=== PATIENT | male | born 1950 | race Caucasian/White ===

== ENCOUNTER 2022-07-06 13:59 | Outpatient (REF) | payer MEDICARE, MEDICAID, SELFPAY ==
[2022-07-06 14:03] LABS: Abs Immature Grans 0.05 10^3/uL (0.0-0.06); Absolute Basophil Count 0.04 10^3/uL (0.0-0.2); Absolute Eosinophil Count 0.25 10^3/uL (0.0-0.7); Absolute Lymphocyte Count 1.39 10^3/uL (1.2-3.4); Absolute Monocyte Count 0.66 10^3/uL (0.1-0.8); Absolute Neutrophil Count 6.55 10^3/uL (1.2-6.7); Basophils % 0.4; Eosinophils % 2.8; HCT 30.3 % (40.0-50.0); HGB 9.4 g/dL (13.5-17.5); Immature Grans % 0.6; Lymphocytes % 15.5; MCH 28.7 pg (27.0-33.0); MCV 92 fL (80-95); MPV 9.5 fL (8.0-11.0); Monocytes % 7.4; Neutrophils % 73.3; Platelet Count 212 10^3/uL (130-400); RBC 3.28 10^6/uL (4.36-5.78); RDW 13.2 % (11.8-14.1); RDW-SD 44.9 fL; WBC 8.94 10^3/uL (4.4-10.8)
[2022-07-06 14:20] LABS: ALT 13 U/L (16-63); AST 11 U/L (15-37); Albumin 3.1 g/dL (3.4-5.0); Alkaline Phosphatase 99 U/L (46-116); Anion Gap 5.3 mmol/L (3-11); BUN 33 mg/dL (7-18); Bilirubin, Total 0.2 mg/dL (0.2-1.0); CO2 36.7 mmol/L (21.0-32.0); CREATININE 1.7 mg/dL (0.70-1.30); Calcium 8.4 mg/dL (8.5-10.1); Chloride 96 mmol/L (98-107); Estimated GFR 42.04 (mL/min/1.73m2); Glucose 121 mg/dL (74-106); NT-proBNP 608 pg/mL (<300); Potassium 4.1 mmol/L (3.5-5.1); Sodium 138 mmol/L (136-145); Total Protein 6.6 g/dL (6.4-8.2); Troponin I < 50 ng/L (<or=60)
== END 2022-07-06 14:00 | disposition home or self-care (01) ==
LOC: LBN 13:59
PROVIDERS: Visit Provider Physician Assistant
DX: M62.81 Muscle weakness (generalized) (principal)
CPT/HCPCS: 80053; 83880; 84484; 85025

== ENCOUNTER 2022-07-07 12:33 | Outpatient (CLI) | payer MEDICARE, MEDICAID, SELFPAY ==
--- NOTE | 2022-07-07 12:30 | RT.EKG_ITS ---
APPROVED REPORT Exam: Resting ECG Reason for Exam: CHEST PAIN Patient Location: O HR:78 bpm ECG Measurements Heart Rate 78 AXIS [place] 87 P -42 QRSd 48 QRS 83 QT 307 T -14 QTc 350 Conclusion Sinus rhythm...normal P axis, V-rate 50- 99 Ventricular premature complex...V complex w/ short R-R interval Atrial premature complex Right bundle branch block
== END 2022-07-07 12:34 | disposition home or self-care (01) ==
PROVIDERS: Visit Provider Physician Assistant
DX: R07.9 Chest pain, unspecified (principal); I49.1 Atrial premature depolarization; I49.3 Ventricular premature depolarization; I45.10 Unspecified right bundle-branch block
CPT/HCPCS: 93005; 93010

== ENCOUNTER 2022-09-03 18:48 | Outpatient (REF) | payer MEDICARE, MEDICAID, SELFPAY ==
[2022-09-03 19:25] LABS: Hemoglobin A1C 6.3 % (<5.7)
== END 2022-09-03 18:49 | disposition home or self-care (01) ==
LOC: LBN 18:48
PROVIDERS: Visit Provider Physician Assistant
DX: E11.9 Type 2 diabetes mellitus without complications (principal)
CPT/HCPCS: 83036

== ENCOUNTER 2022-10-15 16:45 | Outpatient (REF) | payer MEDICARE, MEDICAID, SELFPAY ==
[2022-10-15 17:31] LABS: Magnesium 2.1 mg/dL (1.8-2.4)
== END 2022-10-15 16:46 | disposition home or self-care (01) ==
LOC: LBN 16:45
PROVIDERS: Referring Provider Physician Assistant; Visit Provider Family Medicine
DX: N18.9 Chronic kidney disease, unspecified (principal)
CPT/HCPCS: 83735

== ENCOUNTER 2022-11-10 21:25 | Outpatient (REF) | payer MEDICARE, MEDICAID, SELFPAY | END 2022-11-10 21:26 | disposition home or self-care (01) | LOC: LBN 21:25 | PROVIDERS: Visit Provider Physician Assistant | DX: E11.9 Type 2 diabetes mellitus without complications (principal); S81.802A Unspecified open wound, left lower leg, initial encounter | CPT/HCPCS: 87077; 87070; 87186; 87205 ==

== ENCOUNTER 2022-11-15 03:02 | Inpatient (IN) | payer MEDICARE, MEDICAID, SELFPAY ==
[2022-11-15] VITALS (53 sets, daily range): BP systolic 91–127; BP diastolic 39–80; PULSE 68–92; RESP 4–26; TEMP 36.8–37.9; O2SAT 91–100
--- NOTE | 2022-11-15 03:00 | RT.EKG_ITS ---
APPROVED REPORT Exam: Resting ECG Reason for Exam: dyspnea Patient Location: E HR:88 bpm ECG Measurements Heart Rate 88 AXIS FL 183 P -64 QRSd 159 QRS -24 QT 426 T 46 QTc 497 Conclusion Sinus or ectopic atrial rhythm...P axis (-45,135) Multiform ventricular premature complexes...short R-R, variable morphology Right bundle branch block...QRSd>120, terminal axis(90,270) Inferior infarct, old...Q >35mS, II III aVF
--- NOTE | 2022-11-15 03:15 | DI.RAD_ITS ---
Exam(s) XR PORTABLE CHEST AP EXAM: XR PORTABLE CHEST AP CLINICAL HISTORY: shortness of breath. TECHNIQUE: 2D digital imaging was performed. COMPARISON: CT CT CHEST WO from 11/15/2022 FINDINGS: Single AP portable LORDOTIC view. Heart size is slightly prominent. The mediastinum is not widened. Right lung is clear. There appears to be some infiltrate in left lower lobe retrocardiac region. No obvious pleural effusions. No pulmonary edema. IMPRESSION: Somewhat lordotic view but there is suspicion for left lower lobe infiltrate. No obvious pleural eff usions. Mild cardiomegaly. No pulmonary edema. DATA REPOSITORY: RADIATION DOSE DELIVERED:
--- NOTE | 2022-11-15 03:20 | W.ED.GENAD ---
Discharge Plan Disposition Patient Disposition: Admit to [facility] Discharge Details Chief Complaint: Cellulitis Clinical Impression: ELVIRA (acute kidney injury), Acute uremia, Cellulitis of left leg Primary Care Provider: Unknown,Unknown ED Provider: Ta Sadler [place] Meds and New Rx's Prescriptions: No Action acetaminophen 500 mg Tablet 500 mg PO BID ascorbic acid (vitamin C) 500 mg Tablet 500 mg PO BID atorvastatin 80 mg Tablet 80 mg PO QHS celecoxib [Celebrex] 100 mg Capsule 100 mg PO BID docusate sodium [Colace] 100 mg Capsule 100 mg PO DAILY bisacodyl [Dulcolax (bisacodyl)] 10 mg Suppository 10 mg GA DAILY PRN duloxetine 60 mg Capsule,Delayed Release(Dr/Ec) 60 mg PO DAILY ferrous sulfate 325 mg (65 mg iron) Tablet 325 mg PO DAILY finasteride 5 mg Tablet 5 mg PO DAILY furosemide 80 mg Tablet 80 mg PO BID guaifenesin [Latoya-Tussin] 100 mg/5 mL Liquid 200 mg PO Q4H PRN loperamide [Imodium A-D] 2 mg Tablet 2 mg PO Q4H PRN Rx Instructions: administer after each loose stool until symptoms controlled; do not exceed 8 mg per 24 hrs ipratropium-albuterol 0.5 mg-3 mg(2.5 mg base)/3 mL Solution For Nebulization 3 ml INHALATION Q6H PRN lisinopril 20 mg Tablet 20 mg PO DAILY magnesium chloride 64 mg Tablet Extended Release 128 mg PO DAILY melatonin 5 mg Tablet 5 mg PO HS PRN metformin 1,000 mg Tablet 1,000 mg PO BID metoprolol succinate 50 mg Tablet Extended Release 24 Hr 50 mg PO DAILY magnesium hydroxide [Milk of Magnesia] 400 mg/5 mL Suspension 400 mg PO DAILY PRN PRN polyethylene glycol 3350 [Miralax] 17 gram Powder In Packet 17 g PO DAILY nitroglycerin 0.4 mg Tablet, Sublingual 0.4 mg SUBLINGUAL Q5-15M PRN Rx Instructions: do not exceed 3 doses per episode omeprazole 20 mg Tablet,Delayed Release (Dr/Ec) 20 mg PO DAILY budesonide-formoterol [Symbicort] 160-4.5 mcg/actuation Hfa Aerosol Inhaler 2 puff INHALATION BID tamsulosin 0.4 mg Capsule 0.8 mg PO DAILY triamcinolone acetonide 0.1 % Cream 1 applic TOPICAL BID vit [id number] no.15 [id number] nra-vyc-hz-mg Capsule 1,000 cap PO DAILY alprazolam [Xanax] 0.5 mg Tablet 0.5 mg PO DAILY Medical Decision Making 72 yo male who resides at [facility] rehab and has a hx of copd and chf on o2 chronically, who comes in with complaint of one week of worsening left leg redness and swelling and pain. HE has chronic swelling of both his lower legs and states the left has worsened over the past week. HE denies fevers, chills. HE also notes some chest pressure but states he gets this frequently when he feels anxious which he is feeling now, no prior ME's or prior cabg or stents per patient. Pt is caox4 on arrival with stable vitals. Both legs are swollen with left lower leg from just proximal to the ankle to just distal to the knee is erythematous and warm compared to the right. Intact sensation. Suspect lymphedema vs dvt vs cellulitis, will proceed with cbc, cmp, procalcitonin, lactate, unfortunately no formal u/s capabilities currently. He denies falls or trauma so doubt fracture or traumatic injury of the leg. His chest pain could be related to his anxiety but will proceed with ekg/troponin. NO tearing back pain to suggest dissection, no hypoxia worsened from baseline and no tachycardia so feel PE is also unlikely Labs show wbc of 14, creatinine over 2 and bun over 100 with gfr of 23, xray read as large left sided opacity of unclear etiology, CT without contrast ordered, vanco also ordered but holding on fluids as the opacity potentially is a pleural effusion. CT with no consolidation, pleural effusion, or pneumothorax. PT hemodynamically stable, will discuss with hospitalist about admission for IV antibiotics and fluid monitoring Differential Diagnosis Differential Diagnosis: dvt, cellulitis, lymphedema Imaging Data Radiologic Study: Attestation: I personally reviewed and interpreted this imaging study as follows: Imaging: X-Ray Radiologist's impression: IMPRESSION: Large region of increased opacity over the left lower lung zone, uncertain etiology. Differential considerations would include an artifactual appearance created by overlying soft tissue, a large pleural effusion, the cardiac shadow, and/or consolidation at the left base. Lab Data Lab results reviewed: Yes I reviewed the patient's lab results. ECG Data Attestation: I personally reviewed and interpreted this ECG (s) as follows: Prior ECG tracings: available for review Interpretation: sinus rate of 88, pvc's, no stemi HPI General Mode of arrival: EMS. Date/Time Provider Initiated Documentation: 11/15/22 03:12. Limitations to Documentation: no limitations. Information obtained by: patient. History of Present Illness 72 year old M presents to the emergency department with the chief complaint of left leg swelling/pain/redness, described as moderate, Patient started experiencing this week(s) (1) and it has been constant. No relieving factors improve symptom(s), No exacerbating factors reported . Patient notes chest pain, shortness of breath and other (anxiety). Patient did receive the following treatments prior to arrival, none Related Data Home Medications Medication Instructions Recorded Confirmed acetaminophen 500 mg tablet 500 mg PO BID 11/15/22 11/15/22 alprazolam 0.5 mg tablet (Xanax) 0.5 mg PO DAILY 11/15/22 11/15/22 ascorbic acid (vitamin C) 500 mg 500 mg PO BID 11/15/22 11/15/22 tablet atorvastatin 80 mg tablet 80 mg PO QHS 11/15/22 11/15/22 bisacodyl 10 mg rectal suppository 10 mg GA DAILY PRN 11/15/22 11/15/22 (Dulcolax (bisacodyl)) budesonide-formoterol HFA 160 2 puff inhalation BID 11/15/22 11/15/22 mcg-4.5 mcg/actuation aerosol inhaler (Symbicort) celecoxib 100 mg capsule (Celebrex) 100 mg PO BID 11/15/22 11/15/22 docusate sodium 100 mg capsule 100 mg PO DAILY 11/15/22 11/15/22 (Colace) duloxetine 60 mg capsule,delayed 60 mg PO DAILY 11/15/22 11/15/22 release ferrous sulfate 325 mg (65 mg 325 mg PO DAILY 11/15/22 11/15/22 iron) tablet finasteride 5 mg tablet 5 mg PO DAILY 11/15/22 11/15/22 furosemide 80 mg tablet 80 mg PO BID 11/15/22 11/15/22 guaifenesin 100 mg/5 mL oral 200 mg PO Q4H PRN 11/15/22 11/15/22 liquid (Latoya-Tussin) ipratropium 0.5 mg-albuterol 3 mg 3 ml inhalation Q6H PRN 11/15/22 11/15/22 (2.5 mg base)/3 mL nebulization soln lisinopril 20 mg tablet 20 mg PO DAILY 11/15/22 11/15/22 loperamide 2 mg tablet (Imodium 2 mg PO Q4H PRN 11/15/22 11/15/22 A-D) magnesium chloride 64 mg 128 mg PO DAILY 11/15/22 11/15/22 tablet,extended release magnesium hydroxide 400 mg/5 mL 400 mg PO DAILY PRN PRN 11/15/22 11/15/22 oral suspension (Milk of Magnesia) melatonin 5 mg tablet 5 mg PO HS PRN 11/15/22 11/15/22 metformin 1,000 mg tablet 1,000 mg PO BID 11/15/22 11/15/22 metoprolol succinate 50 mg 50 mg PO DAILY 11/15/22 11/15/22 tablet,extended release 24 hr nitroglycerin 0.4 mg sublingual 0.4 mg sublingual Q5-15M PRN 11/15/22 11/15/22 tablet omeprazole 20 mg tablet,delayed 20 mg PO DAILY 11/15/22 11/15/22 release polyethylene glycol 3350 17 gram 17 g PO DAILY 11/15/22 11/15/22 oral powder packet (Miralax) tamsulosin 0.4 mg capsule 0.8 mg PO DAILY 11/15/22 11/15/22 triamcinolone acetonide 0.1 % 1 applic topical BID 11/15/22 11/15/22 topical cream vit [id number] no.15 500 1,000 cap PO DAILY 11/15/22 11/15/22 mcg-400 mcg-10 mg-400 mg capsule Allergies Allergy/AdvReac Type Severity Reaction Status Date / Time No Known Allergies Allergy Unverified 11/15/22 03:30 General Stated Complaint: Cellulitis YESY: 3 Review of Systems All systems reviewed & are unremarkable except as noted in HPI and below Constitutional Constitutional: Denies chills, Denies fever(s) and Denies weakness ENT Ears, Nose, Mouth, and Throat: Denies change in voice Cardiovascular Cardiovascular: Reports chest pain and Reports dyspnea Respiratory Respiratory: Denies cough and Reports dyspnea Gastrointestinal Gastrointestinal: Denies abdominal pain, Denies nausea and Denies vomiting Genitourinary Genitourinary: Denies dysuria Integumentary/Breasts Skin/Breast: Reports rash Neurologic Neurologic: Denies weakness PFSH All Active Problems (Updated 11/15/22 @ 05:34 by Ta Sadler MD) ELVIRA (acute kidney injury) (Acute) Acute uremia (Acute) Cellulitis of left leg (Acute) Medical History (Updated 11/15/22 @ 05:34 by Ta Sadler MD) Chronic kidney disease (CKD) GERD (gastroesophageal reflux disease) Hyperlipemia Major depression Osteoarthritis Other retention of urine UTI (urinary tract infection) Venous insufficiency Social History Smoking/Tobacco Use Status: Former Tobacco Use Smoking risk assessment performed?: Yes Alcohol Intake: current Alcohol Intake frequency: holidays/special occasions only Substance use type: does not use Housing: fpc Do you feel safe at home: Yes Do you feel safe in your relationship?: Yes Exam Const Orientation: alert HENFL Head: normal to inspection Ears: external ears normal General nose exam: external nose normal Mouth: moist mucous membranes Eyes General: appearance normal, both eyes and all related structures Neck Neck: normal visual inspection Resp Effort & Inspection: normal respiratory effort and able to speak in complete sentences Auscultation: clear to auscultation bilaterally Cardio Jugular venous pressure: no JVD Rate: regular rate Heart Sounds: no murmurs Skin General skin exam: erythema Neuro General: patient alert and patient oriented x3 Extrem General: pedal edema Psych Mental Status: mental status grossly normal Course Vital Signs Vital signs: Vital Signs Temperature 36.8 C 11/15/22 03:03 Pulse 85 11/15/22 03:03 Respiratory Rate 16 11/15/22 03:03 Blood Pressure 127/63 11/15/22 03:03 Pulse Oximetry 97 11/15/22 03:03 Temperature 36.8 C 11/15/22 03:03 Temperature Source Temporal Artery Scan 11/15/22 03:03 Pulse 85 11/15/22 03:03 Respiratory Rate 16 11/15/22 03:03 Respiratory Effort Normal 11/15/22 03:12 Blood Pressure 127/63 11/15/22 03:03 Pulse Oximetry 97 11/15/22 03:03 Oxygen Delivery Method Room Air 11/15/22 03:03 Oxygen Flow Rate 0 11/15/22 03:03 Pain Level 10 11/15/22 03:03 Lab/Test Results Lab/Test Results: 11/15/22 03:02 Blood Blood Culture - Pending 11/15/22 03:02 Blood Blood Culture - Pending
[2022-11-15 03:29] LABS: BE (Venous) 1 mmol/L (-2-3); HCO3 (Venous) 28 mmol/L (23-28); O2 Sat (Venous) 66 %; TCO2 (Venous) 27 mmol/L (24-29); pCO2 (Venous) 56 mmHg (41-51); pH (Venous) 7.31 (7.31-7.41); pO2 (Venous) 36 mmHg
[2022-11-15] MEDS: MORPHine 4 MG/ML SYR IVP (03:29)
[2022-11-15 03:31] LABS: Absolute Basophil Count 0.01 10^3/uL (0.0-0.2); Absolute Eosinophil Count 0.27 10^3/uL (0.0-0.7); Absolute Lymphocyte Count 0.69 10^3/uL (1.2-3.4); Absolute Monocyte Count 1.11 10^3/uL (0.1-0.8); Absolute Neutrophil Count 12.57 10^3/uL (1.2-6.7); Basophils % 0.1; Eosinophils % 1.8; HCT 27.9 % (40.0-50.0); HGB 8.8 g/dL (13.5-17.5); Immature Grans % 0.7; Lactate 2.7 mmol/L (0.6-1.4); Lymphocytes % 4.7; MCH 28.4 pg (27.0-33.0); MCHC 31.5 % (32.0-36.0); MCV 90 fL (80-95); MPV 9.1 fL (8.0-11.0); Monocytes % 7.5; Neutrophils % 85.2; Platelet Count 323 10^3/uL (130-400); RDW-SD 45.9 fL; WBC 14.75 10^3/uL (4.4-10.8)
[2022-11-15 03:42] LABS: Magnesium 1.8 mg/dL (1.8-2.4); PTT Activated 30.5 sec (21.5-31.9); Prothrombin Time 10.2 sec (9.3-11.0)
--- NOTE | 2022-11-15 03:51 | DI.VRAD_ITS ---
PROCEDURE INFORMATION: Exam: XR Chest Exam date and time: 11/15/2022 3:34 AM Age: 72 years old Clinical indication: Shortness of breath TECHNIQUE: Imaging protocol: Radiologic exam of the chest. Views: 1 view. COMPARISON: No relevant prior studies available. FINDINGS: Limitations: The examination is underpenetrated. There is extensive overlying soft tissue. Patient positioning is lordotic. Lungs: There is increased opacity over the left lower lung zone. No consolidation is seen in the left upper lung zone or in the right lung. Pleural spaces: No pleural effusion is demonstrated on the right. There is increased opacity over the left lower lung zone. No pneumothorax is seen. Heart/Mediastinum: The heart is obscured and poorly evaluated. There is atherosclerotic calcification at the apex of the aortic arch. Bones/joints: The bony structures are not well evaluated but appear grossly intact, as seen. IMPRESSION: Large region of increased opacity over the left lower lung zone, uncertain etiology. Differential considerations would include an artifactual appearance created by overlying soft tissue, a large pleural effusion, the cardiac shadow, and/or consolidation at the left base. Dictated and Authenticated by: Juice Mcclain MD. Ordering:PANKAJ Chappell MD
[2022-11-15 03:52] LABS: ALT 23 U/L (16-63); AST 16 U/L (15-37); Albumin 2.5 g/dL (3.4-5.0); Alkaline Phosphatase 104 U/L (46-116); Anion Gap 8.8 mmol/L (3-11); Bilirubin, Total 0.4 mg/dL (0.2-1.0); CO2 29.2 mmol/L (21.0-32.0); CREATININE 2.8 mg/dL (0.70-1.30); Calcium 8.8 mg/dL (8.5-10.1); Chloride 96 mmol/L (98-107); Estimated GFR 22.96 (mL/min/1.73m2); Glucose 158 mg/dL (74-106); NT-proBNP 818 pg/mL (<300); Potassium 5.5 mmol/L (3.5-5.1); Sodium 134 mmol/L (136-145); Total Protein 7.3 g/dL (6.4-8.2); Troponin I < 50 ng/L (<or=60)
[2022-11-15 04:00] LABS: BUN 107 mg/dL (7-18)
--- NOTE | 2022-11-15 04:00 | DI.CT_ITS ---
Exam(s) CT CHEST WO EXAM: CT CHEST WO CLINICAL HISTORY: ?pneumonia vs pleural effusion. TECHNIQUE: Multi planar reconstructions were performed. CONTRAST MATERIAL: None COMPARISON: Recent chest x-ray reviewed FINDINGS: CHEST: LUNGS: Mild subpleural increased markings are noted in the lingular segment of the left lung base as well as in the posterior basal segments of both lower lobes, slightly more so on the right side. No large infiltrates. No pleural effusions. No significant focal findings in the trachea and mainstem bronchi. There is no bronchiectasis. MEDIASTINUM: There is no obvious hilar nor mediastinal adenopathy. Visualized thyroid unremarkable. CARDIAC: There is cardiomegaly. No pericardial effusion. Caliber of thoracic aorta is normal. VISUALIZED UPPER ABDOMEN:No obvious findings. OSSEOUS: No significant osseous lesions.No acute fractures evident.. IMPRESSION: 1. Mild subpleural infiltrate in both lung bases as described above. 2. No pleural effusions nor intrathoracic adenopathy. 3. Cardiomegaly. No pericardial effusion. RADIATION DOSE DELIVERED: 825mGy.cm Total DLP DATA REPOSITORY: All CT scans at this facility are submitted to the National Radiology Data Registry (NRDR) Dose Index Registry (DIR) with the [employer] ([employer]). RADIATION OPTIMIZATION: All CT scans at this facility use at least one of these dose optimization te chniques: automated exposure control; mA and/or kV adjustment per patient size (includes targeted exa ms where dose is matched to clinical indication); or iterative reconstruction.
[2022-11-15 04:04] LABS: Procalcitonin 0.4 ng/mL
[2022-11-15 04:54] LABS: Bilirubin Negative (Negative); Blood Negative (Negative); Clarity Clear (Clear); Glucose Negative (Negative); Ketones Negative (Negative); Leukocyte Esterase Negative (Negative); Nitrite Negative (Negative); Specific Gravity 1.015 (1.005-1.025); Urobilinogen 0.2 mg/dL (Up to 0.2); pH 5.5 (5-8)
--- NOTE | 2022-11-15 05:14 | DI.VRAD_ITS ---
PROCEDURE INFORMATION: Exam: CT Chest Without Contrast; Diagnostic Exam date and time: 11/15/2022 4:10 AM Age: 72 years old Clinical indication: Shortness of breath TECHNIQUE: Imaging protocol: Diagnostic computed tomography of the chest without contrast. COMPARISON: XR PORTABLE CHEST AP 11/15/2022 3:34 AM FINDINGS: Limitations: Grossly asymmetric patient positioning. Lungs: Minimal streaky dependent atelectasis. No pulmonary consolidation. Pleural spaces: No pleural effusion or pneumothorax. Heart: Cardiomegaly. Fatty infiltration of the interatrial septum with a maximum septal thickness of 2.4 cm. Artifact along the coronary arteries suggesting coronary artery calcification and/or coronary artery stents. Lymph nodes: No pathologically enlarged mediastinal or hilar lymph nodes. Vasculature: No thoracic aortic aneurysm. Enlarged pulmonary trunk and main pulmonary arteries suggesting pulmonary hypertension. Bones/joints: Suggestion of a subacute fracture through the anterolateral aspect of the left 1st rib with bony callus formation but incomplete bony union, images 42 of series 6 and 59 of series 3. Possible adjacent incomplete subacute fracture through the costochondral junction of the left 2nd rib, images 74-93 of series 3, uncertain finding. Lower ribs partially excluded from view and incompletely evaluated. Otherwise, no additional fracture seen among the bones of the chest. Spinal degenerative change with anterior osteophytes at multiple levels. Soft tissues: No gross soft tissue mass or fluid collection seen in the chest wall. IMPRESSION: 1. No pulmonary consolidation, pleural effusion, or pneumothorax. 2. Cardiomegaly. 3. Enlarged pulmonary trunk and main pulmonary arteries suggesting pulmonary hypertension. 4. Suggestion of subacute fractures through the anterolateral aspect of the left 1st rib and through the adjacent left 2nd anterior costochondral junction. Dictated and Authenticated by: Juice Mcclain MD. Ordering:PANKAJ Chappell MD
[2022-11-15] MEDS: VANCOMYCIN 1,000 MG in Normal Saline 250 ML 166.6666 MG IVPB (05:15)
[2022-11-15] MEDS: HYDROmorphone 2 MG/ML SYR 1 MG IVP (05:15)
[2022-11-15] MEDS: Lactated Ringers 1,000 ML 150 ML IV (05:21)
--- NOTE | 2022-11-15 05:47 | W.PM.HP.N ---
Date of service: 11/15/22 Time of Service: 05:47 Assessment and Plan Assessment and plan (1) Cellulitis of left leg: Start date: 11/15/22 Status: Acute Assessment and plan: This is a 72-year-old gentleman who has chronic edema and venous stasis of her lower extremity now with worsening left leg symptoms consistent with cellulitis with patient having elevated WBC, increased pain and erythema though no significant fever. He is diabetic and will be started on IV vancomycin with imipenem with conversion to oral therapy using blood cultures as guidance if pathogen grows versus clinical improvement. We are avoiding Zosyn with vancomycin because of renal function. There was a question of pneumonia on x-ray of the chest but CT confirmed no infiltrates. Patient is a full code. (2) ELVIRA (acute kidney injury): Start date: 11/15/22 Status: Acute Assessment and plan: Patient renal functions are at least twice baseline with patient dehydrated. IV hydration watch for fluid overload with patient BNP elevated but stable and this mostly being right-sided failure with his obesity and peripheral edema. Encourage oral hydration. This should improve with treatment of the acute cellulitis. (3) Chronic kidney disease (CKD): Assessment and plan: Patient has CKD with hyperkalemia now most likely secondary to worsening renal function. Hold lisinopril as nephrotoxin while acutely ill. Monitor labs closely. Treat with oral Lokelma as needed. Patient should follow renal diet with his diabetic diet chronically. (4) Venous insufficiency: Assessment and plan: Chronic and associated with morbid obesity with recurrent complications over the lower extremities such as this admission with cellulitis. Weight loss would be helpful. Patient is a diabetic and should consider GLP-1 agonist for weight loss. (5) Uncontrolled type 2 diabetes mellitus with chronic kidney disease: Status: Chronic Assessment and plan: Patient is only on metformin and will be on glucometer measurements with short acting insulin coverage while in the hospital. He should consider GLP-1 agonist chronically which also would help with weight loss. History of Present Illness History of Present Illness Chief Complaint: Increased pain left lower extremity with swelling and erythema. Narrative: This is a 72-year-old male patient who lives in the long term facility near the hospital who presents with increased pain in his left leg with redness and swelling. He is chronically edematous with venous stasis edema of both lower extremities and chronic skin changes and is not able to walk. His left foot is markedly swollen. His right leg has an Unna boot and is less swollen and less tender though it does have some drainage over the foot. He has had no fever or chills but has had chronic pain with the skin changes as mentioned. This all worsened over the last week. He was on the Levaquin by mouth but this has not been continued. He was brought to the ED for evaluation and found to have lactic acidosis with negative procalcitonin. CTA of the chest was performed and there was some question of pneumonia which was mitigated by this test with patient having no evidence of infiltrates in the lungs. He was initiated on Zosyn and vancomycin for cellulitis but because of renal function Zosyn was changed to Anapen him 1 g IV every 8 hours. Blood cultures were performed though the patient was not febrile. Patient BUN/creatinine were elevated from his baseline he appears dehydrated. His BNP was up moderately but stable and he does have a history of diabetes with his glucose slightly up and sodium down. His potassium was elevated with his CKD and lisinopril was being held as be IV hydrated the patient. He is very anxious about his health and is fearful of not getting better. He is a full code. Review of Systems Narrative: 13 point review of systems otherwise unrevealing or stable. PFSH All Active Problems (Updated 11/15/22 @ 08:00 by Som Smith) 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) ELVIRA (acute kidney injury) (Acute) Acute uremia (Acute) Cellulitis of left leg (Acute) Medical History Chronic kidney disease (CKD) GERD (gastroesophageal reflux disease) Hyperlipemia Major depression Osteoarthritis Other retention of urine UTI (urinary tract infection) Venous insufficiency Social History Smoking/Tobacco Use Status: Former Tobacco Use Smoking risk assessment performed?: Yes Alcohol Intake: current Alcohol Intake frequency: holidays/special occasions only Substance use type: does not use Housing: long term Do you feel safe at home: Yes Do you feel safe in your relationship?: Yes Meds Allergies and Home Medications Allergies Allergy/AdvReac Type Severity Reaction Status Date / Time No Known Allergies Allergy Unverified 11/15/22 03:30 Home Medications Medication Instructions Recorded Confirmed Type acetaminophen 500 mg tablet 500 mg PO BID 11/15/22 11/15/22 History alprazolam 0.5 mg tablet (Xanax) 0.5 mg PO DAILY 11/15/22 11/15/22 History ascorbic acid (vitamin C) 500 mg 500 mg PO BID 11/15/22 11/15/22 History tablet atorvastatin 80 mg tablet 80 mg PO QHS 11/15/22 11/15/22 History bisacodyl 10 mg rectal suppository 10 mg OH DAILY PRN 11/15/22 11/15/22 History (Dulcolax (bisacodyl)) budesonide-formoterol HFA 160 2 puff inhalation BID 11/15/22 11/15/22 History mcg-4.5 mcg/actuation aerosol inhaler (Symbicort) celecoxib 100 mg capsule (Celebrex) 100 mg PO BID 11/15/22 11/15/22 History docusate sodium 100 mg capsule 100 mg PO DAILY 11/15/22 11/15/22 History (Colace) duloxetine 60 mg capsule,delayed 60 mg PO DAILY 11/15/22 11/15/22 History release ferrous sulfate 325 mg (65 mg 325 mg PO DAILY 11/15/22 11/15/22 History iron) tablet finasteride 5 mg tablet 5 mg PO DAILY 11/15/22 11/15/22 History furosemide 80 mg tablet 80 mg PO BID 11/15/22 11/15/22 History guaifenesin 100 mg/5 mL oral 200 mg PO Q4H PRN 11/15/22 11/15/22 History liquid (Latoya-Tussin) ipratropium 0.5 mg-albuterol 3 mg 3 ml inhalation Q6H PRN 11/15/22 11/15/22 History (2.5 mg base)/3 mL nebulization soln lisinopril 20 mg tablet 20 mg PO DAILY 11/15/22 11/15/22 History loperamide 2 mg tablet (Imodium 2 mg PO Q4H PRN 11/15/22 11/15/22 History A-D) magnesium chloride 64 mg 128 mg PO DAILY 11/15/22 11/15/22 History tablet,extended release magnesium hydroxide 400 mg/5 mL 400 mg PO DAILY PRN PRN 11/15/22 11/15/22 History oral suspension (Milk of Magnesia) melatonin 5 mg tablet 5 mg PO HS PRN 11/15/22 11/15/22 History metformin 1,000 mg tablet 1,000 mg PO BID 11/15/22 11/15/22 History metoprolol succinate 50 mg 50 mg PO DAILY 11/15/22 11/15/22 History tablet,extended release 24 hr nitroglycerin 0.4 mg sublingual 0.4 mg sublingual Q5-15M PRN 11/15/22 11/15/22 History tablet omeprazole 20 mg tablet,delayed 20 mg PO DAILY 11/15/22 11/15/22 History release polyethylene glycol 3350 17 gram 17 g PO DAILY 11/15/22 11/15/22 History oral powder packet (Miralax) tamsulosin 0.4 mg capsule 0.8 mg PO DAILY 11/15/22 11/15/22 History triamcinolone acetonide 0.1 % 1 applic topical BID 11/15/22 11/15/22 History topical cream vit [id number] no.15 500 1,000 cap PO DAILY 11/15/22 11/15/22 History mcg-400 mcg-10 mg-400 mg capsule Exam Narrative Exam Narrative: General: Patient appears older than stated age, morbidly obese lying in bed uncomfortable from his leg pain. He is anxious. He is alert and oriented x3. HEENT: Normocephalic, coarsened facial features, eyes with pupils equal and react to light symmetrically, extraocular movement tact and sclera anicteric. Oropharynx with dry mucosa. Neck: Short,'s supple and without JVD. Back: Patient not able to sit up for exam. Lungs: Fair aeration anteriorly with no focalizing rales or rhonchi and no expiratory wheeze. Heart: Irregularly regular rhythm with normal rate. Abdomen: Obese with large pannus which is tense over the dependent aspect. Soft over all with no guarding or rebound. No palpable hepatosplenomegaly. Bowel sounds positive all quadrants. Genitalia/rectal: Exam deferred. Patient does have Rodney catheter in place. Extremities: Chronic nonpitting edema left more than right with left foot markedly swollen and erythematous over the foot up the leg with dry bullous appearing formation over the left leg but no open draining ulcerations. Increased warmth to touch with extreme erythema. Tender to touch over the left leg. Right leg with Unna boot wrapped and clear drainage over the foot. Capillary refill is decreased both lower extremities. Skin: Chronic skin changes lower extremities bilaterally as described, otherwise normal color, warm and dry. Neuro: Cranial nerves II through XII grossly intact, no focalizing motor deficits the patient appears not be active because of his edema and obesity. No tremor. Psych: Anxious affect with depressed mood. No abnormal thought processes. Remote and recent memory intact. Results Imaging Imaging Studies: Exam: XR Chest Exam date and time: 11/15/2022 3:34 AM Age: 72 years old Clinical indication: Shortness of breath TECHNIQUE: Imaging protocol: Radiologic exam of the chest. Views: 1 view. COMPARISON: No relevant prior studies available. FINDINGS: Limitations: The examination is underpenetrated. There is extensive overlying soft tissue. Patient positioning is lordotic. Lungs: There is increased opacity over the left lower lung zone. No consolidation is seen in the left upper lung zone or in the right lung. Pleural spaces: No pleural effusion is demonstrated on the right. There is increased opacity over the left lower lung zone. No pneumothorax is seen. Heart/Mediastinum: The heart is obscured and poorly evaluated. There is atherosclerotic calcification at the apex of the aortic arch. Bones/joints: The bony structures are not well evaluated but appear grossly intact, as seen. IMPRESSION: Large region of increased opacity over the left lower lung zone, uncertain etiology. Differential considerations would include an artifactual appearance created by overlying soft tissue, a large pleural effusion, the cardiac shadow, and/or consolidation at the left base. Exam: CT Chest Without Contrast; Diagnostic Exam date and time: 11/15/2022 4:10 AM Age: 72 years old Clinical indication: Shortness of breath TECHNIQUE: Imaging protocol: Diagnostic computed tomography of the chest without contrast. COMPARISON: XR PORTABLE CHEST AP 11/15/2022 3:34 AM FINDINGS: Limitations: Grossly asymmetric patient positioning. Lungs: Minimal streaky dependent atelectasis. No pulmonary consolidation. Pleural spaces: No pleural effusion or pneumothorax. Heart: Cardiomegaly. Fatty infiltration of the interatrial septum with a maximum septal thickness of 2.4 cm. Artifact along the coronary arteries suggesting coronary artery calcification and/or coronary artery stents. Lymph nodes: No pathologically enlarged mediastinal or hilar lymph nodes. Vasculature: No thoracic aortic aneurysm. Enlarged pulmonary trunk and main pulmonary arteries suggesting pulmonary hypertension. Bones/joints: Suggestion of a subacute fracture through the anterolateral aspect of the left 1st rib with bony callus formation but incomplete bony union, images 42 of series 6 and 59 of series 3. Possible adjacent incomplete subacute fracture through the costochondral junction of the left 2nd rib, images 74-93 of series 3, uncertain finding. Lower ribs partially excluded from view and incompletely evaluated. Otherwise, no additional fracture seen among the bones of the chest. Spinal degenerative change with anterior osteophytes at multiple levels. Soft tissues: No gross soft tissue mass or fluid collection seen in the chest wall. IMPRESSION: 1. ? No pulmonary consolidation, pleural effusion, or pneumothorax. 2. ? Cardiomegaly. 3. ? Enlarged pulmonary trunk and main pulmonary arteries suggesting pulmonary hypertension. 4. ? Suggestion of subacute fractures through the anterolateral aspect of the left 1st rib and through the adjacent left 2nd anterior costochondral junction. Labs 11/15/22 03:20 11/15/22 03:20 Labs: Laboratory Results - last 24 hr 11/15/22 11/15/22 11/15/22 03:20 03:20 03:20 WBC RBC Hgb Hct MCV MCH MCHC RDW Plt Count MPV Immature Gran % Neutrophils % Lymphocytes % Monocytes % Eosinophils % Basophils % Nucleated RBC % Absolute Neutrophils Absolute Lymphocytes Absolute Monocytes Absolute Eosinophils Absolute Basophils PT INR APTT VBG pH VBG pCO2 VBG pO2 VBG HCO3 VBG Total CO2 VBG O2 Saturation VBG Base Excess VBG Lactate 2.7 H* Sodium 134 L Potassium 5.5 H Chloride 96 L Carbon Dioxide 29.2 Anion Gap 8.8 BUN 107 H* Creatinine 2.8 H Est GFR (CKD-EPI 2020) 22.96 Glucose 158 H Calcium 8.8 Magnesium 1.8 Total Bilirubin 0.4 AST 16 ALT 23 Alkaline Phosphatase 104 Troponin I < 50 NT-Pro-B Natriuret Pep 818 H Total Protein 7.3 Albumin 2.5 L Procalcitonin 0.4 Urine Color Urine Clarity Urine pH Ur Specific [place] Urine Protein Urine Ketones Urine Blood Urine Nitrite Urine Bilirubin Urine Urobilinogen Ur Leukocyte Esterase Urine Glucose 11/15/22 11/15/22 11/15/22 03:20 03:20 03:20 WBC 14.75 H RBC 3.10 L Hgb 8.8 L Hct 27.9 L MCV 90 MCH 28.4 MCHC 31.5 L RDW 14.0 Plt Count 323 MPV 9.1 Immature Gran % 0.7 Neutrophils % 85.2 Lymphocytes % 4.7 Monocytes % 7.5 Eosinophils % 1.8 Basophils % 0.1 Nucleated RBC % 0.0 Absolute Neutrophils 12.57 H Absolute Lymphocytes 0.69 L Absolute Monocytes 1.11 H Absolute Eosinophils 0.27 Absolute Basophils 0.01 PT 10.2 INR 1.0 APTT 30.5 VBG pH 7.31 VBG pCO2 56 H VBG pO2 36 VBG HCO3 28 VBG Total CO2 27 VBG O2 Saturation 66 VBG Base Excess 1 VBG Lactate Sodium Potassium Chloride Carbon Dioxide Anion Gap BUN Creatinine Est GFR (CKD-EPI 2020) Glucose Calcium Magnesium Total Bilirubin AST ALT Alkaline Phosphatase Troponin I NT-Pro-B Natriuret Pep Total Protein Albumin Procalcitonin Urine Color Urine Clarity Urine pH Ur Specific [place] Urine Protein Urine Ketones Urine Blood Urine Nitrite Urine Bilirubin Urine Urobilinogen Ur Leukocyte Esterase Urine Glucose 11/15/22 04:48 WBC RBC Hgb Hct MCV MCH MCHC RDW Plt Count MPV Immature Gran % Neutrophils % Lymphocytes % Monocytes % Eosinophils % Basophils % Nucleated RBC % Absolute Neutrophils Absolute Lymphocytes Absolute Monocytes Absolute Eosinophils Absolute Basophils PT INR APTT VBG pH VBG pCO2 VBG pO2 VBG HCO3 VBG Total CO2 VBG O2 Saturation VBG Base Excess VBG Lactate Sodium Potassium Chloride Carbon Dioxide Anion Gap BUN Creatinine Est GFR (CKD-EPI 2020) Glucose Calcium Magnesium Total Bilirubin AST ALT Alkaline Phosphatase Troponin I NT-Pro-B Natriuret Pep Total Protein Albumin Procalcitonin Urine Color Yellow Urine Clarity Clear Urine pH 5.5 Ur Specific [place] 1.015 Urine Protein Negative Urine Ketones Negative Urine Blood Negative Urine Nitrite Negative Urine Bilirubin Negative Urine Urobilinogen 0.2 Ur Leukocyte Esterase Negative Urine Glucose Negative Last Vital Signs Temp 36.8 C 11/15/22 03:03 Pulse 86 11/15/22 05:16 Resp 16 11/15/22 03:03 BP 98/39 L 11/15/22 05:16 Pulse Ox 91 L 11/15/22 05:16 Time Spent Time spent with Patient: >75 minutes Time was spent: preparing to see the patient(eg.review tests), obtaining and/or reviewing separately otained hiistory, ordering medications,tests, procedures, referring, communicating with other health home health aide caregiver, indepentently interpreting results, counseling the patient ( in room and Daughter on phone speaker) and care coordination
[2022-11-15] MEDS: PIPERACILLIN/TAZO 4.5 GM in Normal Saline 100 ML IVPB (07:10)
[2022-11-15 08:36] LABS: Troponin I < 50 ng/L (<or=60)
[2022-11-15 08:41] LABS: TSH (W/Ref FT4) 1.73 uIU/mL (0.36-3.74)
[2022-11-15] MEDS: Acetaminophen 325 MG TAB PO (09:07)
[2022-11-15] MEDS: Metoprolol CR 50 MG TABCR PO (09:07)
[2022-11-15] MEDS: Finasteride 5 MG TAB PO (09:07)
[2022-11-15] MEDS: Ferrous Sulfate 325 MG TAB PO (09:07)
[2022-11-15] MEDS: Docusate Sodium 100 MG CAP PO (09:07)
[2022-11-15] MEDS: Ascorbic Acid 500 MG TAB PO ×2 (09:07→20:57)
[2022-11-15] MEDS: Heparin 5,000 UNITS/ML VIAL 5000 UNITS SC ×2 (09:08→17:45)
[2022-11-15] MEDS: Omeprazole 20 MG CAPCR PO (09:08)
[2022-11-15] MEDS: ALPRAZolam 0.5 MG TAB PO (09:08)
[2022-11-15] MEDS: Vitamins B Comp w/C TAB 1 TAB PO (10:15)
[2022-11-15] MEDS: Magnesium Chloride 64 MG TABCR 128 MG PO (10:15)
[2022-11-15] MEDS: DULoxetine 30 MG CAP 60 MG PO (10:15)
[2022-11-15] MEDS: Budesonide/Formoterol 160/4.5 6 GM 60 PUFF INH IH ×2 (10:25→19:54)
[2022-11-15] MEDS: Albuterol/Ipratropium 3 ML UPD VIAL UPD (10:30)
[2022-11-15] MEDS: Normal Saline 500 ML 30 ML IV (11:12)
[2022-11-15] MEDS: IMIPENEM/CILASTATIN 500 MG in Normal Saline 100 ML 200 MG IVPB ×3 (11:13→22:22)
[2022-11-15] MEDS: Normal Saline Flush 10 ML SYR IVP ×2 (11:13→12:30)
[2022-11-15] MEDS: Polyethylene Glycol 3350 17 GM PACKET PO (12:29)
[2022-11-15] MEDS: HYDROmorphone 2 MG/ML SYR 0.5 MG IVP (12:30)
[2022-11-15] MEDS: Insulin Aspart 300 UNITS/3 ML PEN SC ×3 (12:31→20:58)
[2022-11-15] MEDS: Normal Saline 1,000 ML 150 ML IV ×2 (12:31→19:21)
[2022-11-15] MEDS: oxyCODONE 5 MG TAB 2.5 MG PO (13:35)
--- NOTE | 2022-11-15 16:02 | W.PM.PROGNOT ---
Date of Service Date of service: 11/15/22 Time of Service: 16:02 Subjective Subjective Interval history since last seen: Patient was seen by wound nurse; see their note. Patient has candidiasis to the groin, nystatin powder ordered TID Objective Last Vital Signs Temp 37.8 C H 11/15/22 14:43 Pulse 80 11/15/22 14:43 Resp 24 11/15/22 14:43 BP 95/59 L 11/15/22 14:43 Pulse Ox 92 11/15/22 14:43 Laboratory Results - last 24 hr 11/15/22 11/15/22 11/15/22 03:20 03:20 03:20 WBC RBC Hgb Hct MCV MCH MCHC RDW Plt Count MPV Immature Gran % Neutrophils % Lymphocytes % Monocytes % Eosinophils % Basophils % Nucleated RBC % Absolute Neutrophils Absolute Lymphocytes Absolute Monocytes Absolute Eosinophils Absolute Basophils PT INR APTT VBG pH VBG pCO2 VBG pO2 VBG HCO3 VBG Total CO2 VBG O2 Saturation VBG Base Excess VBG Lactate 2.7 H* Sodium 134 L Potassium 5.5 H Chloride 96 L Carbon Dioxide 29.2 Anion Gap 8.8 BUN 107 H* Creatinine 2.8 H Est GFR (CKD-EPI 2020) 22.96 Glucose 158 H Calcium 8.8 Magnesium 1.8 Total Bilirubin 0.4 AST 16 ALT 23 Alkaline Phosphatase 104 Troponin I < 50 NT-Pro-B Natriuret Pep 818 H Total Protein 7.3 Albumin 2.5 L Procalcitonin 0.4 TSH Urine Color Urine Clarity Urine pH Ur Specific [place] Urine Protein Urine Ketones Urine Blood Urine Nitrite Urine Bilirubin Urine Urobilinogen Ur Leukocyte Esterase Urine Glucose 11/15/22 11/15/22 11/15/22 03:20 03:20 03:20 WBC 14.75 H RBC 3.10 L Hgb 8.8 L Hct 27.9 L MCV 90 MCH 28.4 MCHC 31.5 L RDW 14.0 Plt Count 323 MPV 9.1 Immature Gran % 0.7 Neutrophils % 85.2 Lymphocytes % 4.7 Monocytes % 7.5 Eosinophils % 1.8 Basophils % 0.1 Nucleated RBC % 0.0 Absolute Neutrophils 12.57 H Absolute Lymphocytes 0.69 L Absolute Monocytes 1.11 H Absolute Eosinophils 0.27 Absolute Basophils 0.01 PT 10.2 INR 1.0 APTT 30.5 VBG pH 7.31 VBG pCO2 56 H VBG pO2 36 VBG HCO3 28 VBG Total CO2 27 VBG O2 Saturation 66 VBG Base Excess 1 VBG Lactate Sodium Potassium Chloride Carbon Dioxide Anion Gap BUN Creatinine Est GFR (CKD-EPI 2020) Glucose Calcium Magnesium Total Bilirubin AST ALT Alkaline Phosphatase Troponin I NT-Pro-B Natriuret Pep Total Protein Albumin Procalcitonin TSH Urine Color Urine Clarity Urine pH Ur Specific [place] Urine Protein Urine Ketones Urine Blood Urine Nitrite Urine Bilirubin Urine Urobilinogen Ur Leukocyte Esterase Urine Glucose 11/15/22 11/15/22 11/15/22 04:48 08:00 08:00 WBC RBC Hgb Hct MCV MCH MCHC RDW Plt Count MPV Immature Gran % Neutrophils % Lymphocytes % Monocytes % Eosinophils % Basophils % Nucleated RBC % Absolute Neutrophils Absolute Lymphocytes Absolute Monocytes Absolute Eosinophils Absolute Basophils PT INR APTT VBG pH VBG pCO2 VBG pO2 VBG HCO3 VBG Total CO2 VBG O2 Saturation VBG Base Excess VBG Lactate Sodium Potassium Chloride Carbon Dioxide Anion Gap BUN Creatinine Est GFR (CKD-EPI 2020) Glucose Calcium Magnesium Total Bilirubin AST ALT Alkaline Phosphatase Troponin I < 50 NT-Pro-B Natriuret Pep Total Protein Albumin Procalcitonin TSH 1.73 Urine Color Yellow Urine Clarity Clear Urine pH 5.5 Ur Specific [place] 1.015 Urine Protein Negative Urine Ketones Negative Urine Blood Negative Urine Nitrite Negative Urine Bilirubin Negative Urine Urobilinogen 0.2 Ur Leukocyte Esterase Negative Urine Glucose Negative Time Spent with Patient Time Spent with Patient: <25 minutes Time was spent: care coordination
--- NOTE | 2022-11-15 16:31 | WOUNDCONS ---
- If Service Date Differs Date of service: 11/15/22 Time of Service: 14:40 Wound Initial Evaluation Narrative: Patient is a 72 yom, he [facility] a [facility] about [facility] now per patient, He is alert and oriented X4 and is able to give a good recent history related to his health and circumstances r/t to the wound consult. He has had worsening pain in the left lower extremity for roughly 6 days per patient report. other areas noted were the right leg, which had a co-flex applied, and a report of a stageable wound on the left side of his sacral area. During my interview with the patient, he stated that he rarely ambulates as of late. He will go a short distance, or stand and pivot with a walker, or transfer to a wheelchair and moves that way. He reports a decreased appetite of late. While alert and oriented, he was drowsy r/t pain medication, protein nutrition was not discussed at this time, and will be mentioned to the provider. His H&P, labs, allergies, and other pertinent in formation were reviewed. Patient consented to the wound consult and signs consent. Body Four View: 1 - excoriation 2 - cellulitis - Wound Left Lumbar/Sacral Wound Type: Partial Thickness, Other (Excoriation) Wound General Appearance: Reddened, Unapproximated Wound Bed Greatest Portion: Red (Granulation) Percent of Wound Bed Granulated/Red: 100 Wound Length: 8.1 cm Wound Width: 5.1 cm Wound Depth: 0.1 cm Wound Drainage Amount: None Wound Drainage Odor: None/Absent Wound Drainage Description: No drainage Wound Topical Solution/Irrigant: Other (soap and water) Wound Debridement Method: Mechanical Wound Debridement Result: Healthy Tissue Revealed Wound Debridement Amount of Tissue Removed: None Left Tib/Fib(lower leg) Wound Type: Partial Thickness, Other (cellulitis) Wound General Appearance: Reddened, Unapproximated Wound Bed Greatest Portion: Other (dark red) Wound Length: 41 cm Wound Width: 33.5 cm Wound Depth: 0.1 cm (less than) Wound Drainage Amount: Minimal Wound Drainage Odor: None/Absent Wound Drainage Description: Sero Sanguineous Wound Topical Solution/Irrigant: Antibiotic Irrigant Wound Debridement Method: Enzymatic (Debrisoft) Wound Debridement Result: Healthy Tissue Revealed, Other Wound Debridement Amount of Tissue Removed: Minimal - Circulation, Sensation, Motion Edema Degree: 4+ Peripheral Pulse Strength: Absent Capillary Refill: Greater than 3 seconds Sensation Description: Pain Skin Temperature: Warm Skin Color: Erythema Additional Other Comments: Pulse in left foot found with doppler, right foot is weak but palpable - ACE Comment:: unable to tolerate - Pain Pain Level: 10 Pain Description: Burning, Acute Pain Duration/Frequency: Constant Sacral wound is blanchable, excoration d/t moisture, either fecal or urinary. care for just as if it is pressure. Right leg, though not a wound , was found to have a co-flex on it. It was removed to assess underneath it, no wound appreciated, will clean and wrap it with luisana wrap daily. Left leg, will clean and apply Lachydrin BID, avoid compression while actively infected - Photo Photo: - Treatment/Dressing Change Topicals/Ointments: Other (Ammonium Lactate) Cleanse With: Anasept, Debrisoft (Optiview sacral) - Nutrition Education Reviewed Nutrition Education: No - Recomendation Recomendation:: Right leg. [place] Anasept spray to the affected area, allow to dwell for 2 minutes. Scrub with Debrisoft sponge as patient will tolerate Wrap with luisana bandage Perform daily. Left leg. [place] with Anasept spray, allow to dwell for 2 minutes. Scrub with Debrisoft as patient will tolerate. Apply Ammonium Lactate to the affected area. Keep extremity elevated. Perform BID. Sacrum Cleanse with Soap and water. Dry thoroughly. Cover with Optiview sacral. Offload pressure every 2 hours. Change every other day or PRN. Physcian/Nurse Practioner Notified: Yes (Sherita Fuentes [employer]) Referrals: Dietary Treatment Time - Time Total Time Spent with Patient: 1 hour - Patient Will be Seen Weekly Treatment: bid - For: For:: 1 week
--- NOTE | 2022-11-15 16:32 | INITIAL_ITS ---
Date of service: 11/15/22 Time of Service: 16:33 Care Management Initial Assmt Initial Assessment REASON FOR HOSPITALIZATION:: Cellulitis, ELVIRA with CKD PREVIOUS FUNCTIONAL STATUS/SOCIAL/FAMILY SUPPORTS:: Shivam resides at [facility]. He shares he has been at the facility for approximately 6 months. He has an adult son (Evin Lagunas) and daughter (Yani Lagunas) who live in [place] and are supportive of him. 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 CURRENT FUNCTIONAL STATUS:: Shivam is lying in bed when CM comes to meet with him. He states he was given Morphine earlier for pain and says the medication helped his chest pain but did nothing to alleviate his leg pain. This information is passed on to RN. ADVANCE DIRECTIVES:: None on file; patient says he has a Living Will and his daughter Yani Lagunas is assigned as HCA. Has patient been provided with info about the portal/API?: No Did the patient sign up for the portal?: No CODE STATUS:: Full Code INSURANCE COVERAGE / FINANCIAL ISSUES:: Medicare and Medicaid CURRENT HOME/COMMUNITY SERVICES/EQUIPMENT:: Resident of [facility]. Patient on 4L of O2 at baseline. Ambulates with a walker. POTENTIAL DISCHARGE NEEDS:: Follow up with PCP and discharge plan of care. PATIENT/FAMILY EDUCATION NEEDS:: Review of discharge instructions including medications, limitations and follow up plan of care; discuss Ask Me Three and self management. ANTICIPATED BARRIERS TO DISCHARGE:: None. TRANSPORTATION:: Via facility van PLAN:: Shivam will return to [facility] when medically cleared by provider. He will follow up with his PCP and plan of care as prescribed. He will be transported back to the [facility] via facility van when ready. CM will continue to f rashi. 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) ELVIRA (acute kidney injury) (Acute) Acute uremia (Acute) Cellulitis of left leg (Acute) Medical History Chronic kidney disease (CKD) GERD (gastroesophageal reflux disease) Hyperlipemia Major depression Osteoarthritis Other retention of urine UTI (urinary tract infection) Venous insufficiency Social History Smoking/Tobacco Use Status: Former Tobacco Use Smoking risk assessment performed?: Yes Alcohol Intake: current Alcohol Intake frequency: holidays/special occasions only Substance use type: does not use Housing: intermediate Do you feel safe at home: Yes Do you feel safe in your relationship?: Yes
[2022-11-15 18:13] LABS: CREATININE 2.6 mg/dL (0.70-1.30); Estimated GFR 25.09 (mL/min/1.73m2)
[2022-11-15 18:20] LABS: Vancomycin, Random 8.2 ug/mL
[2022-11-15] MEDS: Nystatin POWDER 60 GM JAR TP (20:56)
[2022-11-15] MEDS: Lachydrin 12% LOTION 225 GM BTL TP (20:57)
[2022-11-15] MEDS: Triamcinolone 0.1% CR 15 GM TUBE TP (20:57)
[2022-11-15] MEDS: Atorvastatin 40 MG TAB 80 MG PO (20:58)
[2022-11-15] MEDS: VANCOMYCIN/WATER (PEG) 1 GM/200 ML BAG IV (22:48)
[2022-11-16] VITALS (13 sets, daily range): BP systolic 95–124; BP diastolic 56–70; PULSE 65–83; RESP 4–24; TEMP 36.1–37.3; O2SAT 89–99
[2022-11-16] MEDS: HYDROmorphone 2 MG/ML SYR 0.5 MG IVP ×2 (00:24→08:34)
[2022-11-16] MEDS: Heparin 5,000 UNITS/ML VIAL 5000 UNITS SC ×4 (00:24→23:56)
[2022-11-16] MEDS: Acetaminophen 325 MG TAB PO ×2 (00:24→10:28)
[2022-11-16] MEDS: Normal Saline 1,000 ML 150 ML IV (03:36)
[2022-11-16] MEDS: IMIPENEM/CILASTATIN 500 MG in Normal Saline 100 ML 200 MG IVPB ×4 (03:47→22:41)
[2022-11-16] MEDS: oxyCODONE 5 MG TAB 2.5 MG PO ×2 (04:17→10:28)
[2022-11-16] MEDS: Albuterol/Ipratropium 3 ML UPD VIAL UPD (04:32)
[2022-11-16 07:21] LABS: HCT 25.2 % (40.0-50.0); MCHC 31.7 % (32.0-36.0); MCV 91 fL (80-95); MPV 9.4 fL (8.0-11.0); Platelet Count 290 10^3/uL (130-400); RBC 2.76 10^6/uL (4.36-5.78); RDW 13.8 % (11.8-14.1); RDW-SD 46.5 fL; WBC 13.41 10^3/uL (4.4-10.8)
[2022-11-16 07:46] LABS: ALT 23 U/L (16-63); AST 20 U/L (15-37); Alkaline Phosphatase 101 U/L (46-116); Anion Gap 6.6 mmol/L (3-11); Bilirubin, Total 0.4 mg/dL (0.2-1.0); CO2 29.4 mmol/L (21.0-32.0); CREATININE 2.2 mg/dL (0.70-1.30); Calcium 8.6 mg/dL (8.5-10.1); Chloride 99 mmol/L (98-107); Estimated GFR 30.66 (mL/min/1.73m2); Glucose 104 mg/dL (74-106); Magnesium 1.9 mg/dL (1.8-2.4); Potassium 5.5 mmol/L (3.5-5.1); Sodium 135 mmol/L (136-145); Total Protein 6.7 g/dL (6.4-8.2)
[2022-11-16 07:50] LABS: BUN 86 mg/dL (7-18)
[2022-11-16] MEDS: Vitamins B Comp w/C TAB 1 TAB PO (08:32)
[2022-11-16] MEDS: DULoxetine 30 MG CAP 60 MG PO (08:32)
[2022-11-16] MEDS: Metoprolol CR 50 MG TABCR PO (08:32)
[2022-11-16] MEDS: Omeprazole 20 MG CAPCR PO (08:32)
[2022-11-16] MEDS: guaiFENesin 600 MG TABCR PO ×2 (08:33→21:16)
[2022-11-16] MEDS: Finasteride 5 MG TAB PO (08:33)
[2022-11-16] MEDS: Benzonatate 200 MG CAP PO ×3 (08:33→21:16)
[2022-11-16] MEDS: ALPRAZolam 0.5 MG TAB PO (08:33)
[2022-11-16] MEDS: Magnesium Chloride 64 MG TABCR 128 MG PO (08:33)
[2022-11-16] MEDS: Ascorbic Acid 500 MG TAB PO ×2 (08:33→21:16)
--- NOTE | 2022-11-16 08:41 | CMPROGNOTE_ITS ---
Date of service: 11/16/22 Time of Service: 08:41 Care Management Progress Note Progress Note Text Progress Note Text: S/O:Shivam was sitting up in a chair with his feet elevated when CM met with him. He was very sleepy and answered questions with one word answers. Shivam indicated that he did not sleep well last night, but denied having any pain. His left leg remains very erythematous and edematous, however his vital signs are stable and he is afebrile. Shivam's renal function is slowly improving as is his leukocytosis. A: Shivam is a 72 year old man admitted on 11/15/22 from [facility] with cellulitis and ELVIRA P?Shivam will return to [facility] when medically cleared by provider.? He will follow up with his PCP and plan of care as prescribed.? He will be transported back to the [facility] via facility van when ready.? CM will continue to follow.
[2022-11-16] MEDS: Budesonide/Formoterol 160/4.5 6 GM 60 PUFF INH IH ×2 (09:02→19:22)
[2022-11-16] MEDS: Ferrous Sulfate 325 MG TAB PO (09:23)
--- NOTE | 2022-11-16 10:04 | PT.INIE ---
Date of service: 11/16/22 Time of Service: 09:08 PT Notes Visit Reasons: Cellulitis,ELVIRA with CKD Physical Therapy Inpatient Initial Evaluation Date: 11/16/2022 Referring Doctor: Sherita Fuentes NP PT Orders: PT CONSULT: Eval/treat Precautions: Fall. Contact precautions in place. Activity as tolerated. Patient Profile/Admitting Diagnosis: Diet is a 72-year-old male who presented to the ED from the health and rehab due to worsening left leg pain, redness, and swelling. Patient is admitted for management of cellulitis of left leg, acute kidney injury, chronic kidney disease, venous insufficiency, and uncontrolled type 2 diabetes mellitus. 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 Chronic kidney disease (CKD) GERD (gastroesophageal reflux disease) Hyperlipemia Major depression Osteoarthritis Other retention of urine UTI (urinary tract infection) Venous insufficiency Social History/Home Situation: Has been a resident of SNF for the past 6 months now. Able to walk at least 30 feet using front wheeled walker in the hallway of [facility]. Equipment Owned/DME: W/C, FWW Subjective: Reports 10 out of 10 pain with movement and weight bearing. Willing to work with physical therapy for mobility progression as long as his pain is managed a little bit more. reports significant shortness of breath with activity. Nurse Darleen made aware. Objective: General Observation: Seated on a regular chair. On chronic oxygen supplementation, 2 L/min via NC. IV through left brachium. High BMI. Considerable Erythema, swelling to left leg and left foot. Significant lymphorrhea noted. LISA wraps to R leg and foot. Camel's hump on L dorsum of foot due to swelling. Scrotal edema noted. Mental Status: Alert and oriented as to person, place, time, and purpose. Able to pay attention, focus, and respond appropriately. Pain: 10/10 with movement and weight bearing Vital Signs: WNL as closley monitored by ursing staff. Oxygen saturation at 92% on 2 L/minute duirng attempts at standing ROM: Right Upper Extremity: Shoulder Flexion WFL. Shoulder abduction WFL. Elbow flexion WFL. Wrist flexion WFL. Functional opening and closing of hand WFL. Left Upper Extremity: Shoulder Flexion WFL. Shoulder abduction WFL. Elbow flexion WFL. Wrist flexion WFL. Functional opening and closing of hand WFL. Right Lower Extremity: Hip flexion lacks the last 50% of AROM. Hip abduction lacks the last 50% of AROM. Knee flexion 45 to 90 degrees. Ankle dorsiflexion has less than 25% of available AROM. Ankle plantarflexion has less than 25% of available AROM. Left Lower Extremity: Hip flexion lacks the last 50% of AROM. Hip abduction lacks the last 50% of AROM. Knee flexion 45 to 90 degrees. Ankle dorsiflexion has less than 25% of available AROM. Ankle plantarflexion has less than 25% of available AROM. Strength: Right Upper Extremity: Shoulder flexors 4-/5. Shoulder abductors 4-/5. Elbow flexors 4-/5. Elbow extensors 4-/5. Obiee Obia Solution Architect strong. Left Upper Extremity: Shoulder flexors 4-/5. Shoulder abductors 4-/5. Elbow flexors 4-/5. Elbow extensors 4-/5. Obiee [employer] Solution Architect strong. Right Lower Extremity: Hip flexors 2-/5. Hip abductors 2-/5. Knee flexors 2-/5. Knee extensors 2-/5. Ankle dorsiflexors 2-/5. Ankle plantarflexors 2-/5. Left Lower Extremity: Hip flexors 2-/5. Hip abductors 2-/5. Knee flexors 2-/5. Knee extensors 2-/5. Ankle dorsiflexors 2-/5. Ankle plantarflexors 2-/5. Bed Mobility/Transfers: MANAGER ETHICS Mary Ellen assisted for safety Sit to stand minimal assist of 2, cues for hand placement needed Stand to sit minimal assist of 2, cues for hand placement needed Bed to reclining chair minimal assist of 2, cues for hand placement needed Reclining chair to bed minimal assist of 2, cues for hand placement needed Gait: Only tolerated 4 small steps to transfer from chair to bedside recliner using FWW with report of pain at 10/10 and significant shortness of breath. Balance: Static Sitting: Normal Dynamic Sitting: Normal Static Standing: Fair Dynamic Standing: Poor Special Tests: Mobility Limitations Standardized Measure [employer] AM-PAC 6 clicks Basic Mobility Inpatient Short Form: Raw Score: 12 CMS Score: 69% deficit Informed Consent/Education: Patient was instructed in purpose of PT consult and plan of care. Agreeable to proceed with established PT POC to achieve personal goals. ASSESSMENT: Mobility performance currently significantly limited by pain level in bilateral legs. Patient is agreeable to working with PT with his pain more managed as pain level increases his anxiety and limits his ability to do more. Will coordinate with nurse for premedication for pain to maximize functional mobility progression. COPD, high BMI, and pain level all limit mobility goals at this time. Will plan to regain prior level of function of supervision assist with FWW for at least 30 feet using FWW while pain and antibiotic management is ongoing. Patient presents with clinical signs and symptoms consistent with current/admitting diagnoses that have resulted to mobility limitations, gait instability, generalized weakness, and overall ADL decline as demonstrated by the following impairment level findings: 1. Decreased strength to B UE/LE major muscle groups 2. Impaired sitting/standing balance 3. Impaired activity tolerance 4. Limitation of joint range of motion in B LE joints 5. Shortness of breath 6. Swelling in B LE with L<<R leg and foot Impairments are contributing to the following functional limitations: 1. Decline in bed mobility skills 2. Decline in transfer skills 3. Difficulty with ambulation without assistive device and physical assistance 4. Increased completion time for mobility ADL performance 5. Increased risk for falls 6. Difficulty with managing steps alone safely Patient is assessed as a 53507 moderate complexity based on the following: History: 72-year-old male with past medical history as indicated above Examination: Demonstrable impairment in strength, balance, and mobility level with underlying impairments and functional limitations as exhibited above as well as deficit score of 69% utilizing the [facility] Mobility Inpatient Short Form Presentation: Evolving Decision Makin moderate complexity Goals: Goals X1 week 1. Supine-Sit independent 2. Sit-Supine independent 3. Sit-Stand independent 4. Stand-Sit independent with FWW 5. Bed-Chair independent with FWW 6. Chair-Bed independent with FWW 7. Supervision gait on level surface with use of [] for at least [] feet without report of pain nor dyspnea 8. Good static and dynamic standing balance/tolerance Plan of Care/Treatment Plan: 1-2x/day, 7 days/week x 1 week. Plan of care has been reviewed with the SWIMMING COACH OR INSTRUCTOR providing the service under Physical Therapy direction. Initiate Physical Therapy intervention for pain management as needed, strengthening, bed mobility, transfers, gait, stairs, balance training, and use of assistive device. DISCHARGE RECOMMENDATIONS: [] Home with no services [] [] Home with services [specify] [] Home with outpatient PT [] [] SNF for continued rehabilitation [] [] [facility] [] [] SNF versus LTC based on ability to participate and progress [] [X] Return to SNF when medically cleared by hospitalist. Patient will benefit from custodial facility placement for continued skilled physical therapy services in order to progress mobility level, strength, and balance. TREATMENT CODE/TIME: 9716 2 x 20 minutes, 16903 x 30 minutes beginning at 9:10 AM. Thank you for the opportunity to participate in the care of this patient. Riri Lubin PT, DPT, CLT [facility] [place], [place]
[2022-11-16 10:38] LABS: Vancomycin, Random 13.9 ug/mL
[2022-11-16] MEDS: Nystatin POWDER 60 GM JAR TP ×3 (11:38→21:18)
[2022-11-16] MEDS: HYDROmorphone 2 MG/ML SYR 1 MG IVP (11:39)
[2022-11-16] MEDS: Triamcinolone 0.1% CR 15 GM TUBE TP ×2 (11:39→21:17)
[2022-11-16] MEDS: Insulin Aspart 300 UNITS/3 ML PEN SC ×2 (11:40→22:42)
[2022-11-16 11:53] LABS: COVID-19 PCR Negative (Negative); Influenza A PCR Negative (Negative); Influenza B PCR Negative (Negative); RSV PCR Negative (Negative)
[2022-11-16 11:58] LABS: Source Nasopharynx
--- NOTE | 2022-11-16 15:53 | PT.INTREAT ---
Date of service: 11/16/22 Time of Service: 15:08 PT Notes Visit Reasons: Cellulitis,ELVIRA with CKD Inpatient Physical Therapy Treatment Note [facility] Date: 11/16/22 PRECAUTIONS: Fall, standard, contact, activity as tolerated. SUBJECTIVE: Patient is asleep in recliner when this therapist arrives. Wakes easily, however takes a long time to fully wake up. Agreeable to therapy, dozes off repeatedly at beginning of treatment. OBJECTIVE: Patient's SaO2 is 74% at start of session, Alerted BENOIT Nichols. On 2L / min supplemental oxygen via nasal cannula. With several verbal cues to take deep NASAL breaths, patient's SaO2 recovers to 94%.? PAIN: Yes, LLE, especially with movement. Reports no pain at rest. VITALS: SaO2 as noted above. ? Therapeutic Exercises (38491j1): Direct one-on-one instruction in therapeutic exercises to develop strength, endurance, range of motion and flexibility. ? Exercises: Diaphragmatic breathing. VibraPEP. Seated knee raises, LAQ's, SLR's, ankle pumps. Sit to stand x2. Standing tolerance x30 seconds with verbal cues and encouragement ? Provided skilled instruction in proper exercise performance ASSESSMENT:? Patient tolerates therapy well, however reports that he is wiped out at end of treatment. Resting in recliner at end of treatment with call kauffman in easy reach. PLAN: Continue global strength and conditioning per plan of care until patient is medically ready for discharge. TREATMENT CODE/TIME: 50598 Ther Ex 44 minutes beginning at 15:08
[2022-11-16] MEDS: VANCOMYCIN/WATER (PEG) 1 GM/200 ML BAG IV (17:39)
--- NOTE | 2022-11-16 18:05 | PGE_ITS ---
Date of Service Date of service: 11/16/22 Time of Service: 14:00 Assessment and Plan Assessment and plan (1) Cellulitis of left leg: Status: Acute Assessment and plan: continue antibiotics elevate leg as much as possible. (2) ELVIRA (acute kidney injury): Status: Acute Assessment and plan: acute on chronic and received IV hydration monitor kidney function avoid nephrotic drugs, lisinopril placed on hold renal dose as needed. (3) Venous insufficiency: Status: Acute Assessment and plan: Chronic and associated with morbid obesity Weight loss would be helpful. Patient is a diabetic and should consider GLP-1 agonist for weight loss. (4) Uncontrolled type 2 diabetes mellitus with chronic kidney disease: Status: Chronic Assessment and plan: should consider GLP-1 agonist chronically which also would help with weight loss. continue diabetic diet, sliding scale coverage as needed. A1C Subjective Subjective Patient reports: no new complaints, feels better, tolerating a regular diet, diarrhea and afebrile; denies vomiting Interval history since last seen: Patient states his pain has increased and he is not receiving adequate pain medications, will increase frequency He is otherwise reporting that he is comfortable and doing ok Objective Last Vital Signs Temp 36.8 C 11/16/22 15:25 Pulse 71 11/16/22 15:25 Resp 24 11/16/22 15:25 BP 110/56 L 11/16/22 15:25 Pulse Ox 95 11/16/22 17:15 Laboratory Results - last 24 hr 11/15/22 11/15/22 11/16/22 17:56 17:56 06:42 WBC RBC Hgb Hct MCV MCH MCHC RDW Plt Count MPV Sodium 135 L Potassium 5.5 H Chloride 99 Carbon Dioxide 29.4 Anion Gap 6.6 BUN 86 H* Creatinine 2.6 H 2.2 H Est GFR (CKD-EPI 2020) 25.09 30.66 Glucose 104 Calcium 8.6 Magnesium 1.9 Total Bilirubin 0.4 AST 20 ALT 23 Alkaline Phosphatase 101 Total Protein 6.7 Albumin 2.0 L Random Vancomycin 8.2 COVID-19 Source SARS-CoV-2 (PCR) Influenza Type A (PCR) Influenza Type B (PCR) RSV (PCR) 11/16/22 11/16/22 11/16/22 06:42 10:13 10:50 WBC 13.41 H RBC 2.76 L Hgb 8.0 L Hct 25.2 L MCV 91 MCH 29.0 MCHC 31.7 L RDW 13.8 Plt Count 290 MPV 9.4 Sodium Potassium Chloride Carbon Dioxide Anion Gap BUN Creatinine Est GFR (CKD-EPI 2020) Glucose Calcium Magnesium Total Bilirubin AST ALT Alkaline Phosphatase Total Protein Albumin Random Vancomycin 13.9 COVID-19 Source Nasopharynx SARS-CoV-2 (PCR) Negative Influenza Type A (PCR) Negative Influenza Type B (PCR) Negative RSV (PCR) Negative Time Spent with Patient Time Spent with Patient: 35-49 minutes Time was spent: preparing to see the patient(eg.review tests), ordering medications,tests, procedures, referring, communicating with other health critical care cns, indepentently interpreting results, counseling the patient and care coordination
[2022-11-16] MEDS: Atorvastatin 40 MG TAB 80 MG PO (21:16)
[2022-11-16] MEDS: Lachydrin 12% LOTION 225 GM BTL TP (21:17)
[2022-11-17] VITALS (16 sets, daily range): BP systolic 103–144; BP diastolic 62–78; PULSE 67–94; RESP 2–24; TEMP 36.1–37.5; O2SAT 92–98
[2022-11-17] MEDS: oxyCODONE 5 MG TAB 2.5 MG PO ×2 (00:01→16:06)
[2022-11-17] MEDS: Albuterol 2.5 MG/3 ML INH SOLN VIAL UPD ×2 (00:45→07:45)
[2022-11-17] MEDS: IMIPENEM/CILASTATIN 500 MG in Normal Saline 100 ML 200 MG IVPB ×4 (03:29→20:55)
[2022-11-17] MEDS: HYDROmorphone 2 MG/ML SYR 1 MG IVP ×3 (03:35→23:15)
[2022-11-17] MEDS: Albuterol/Ipratropium 3 ML UPD VIAL UPD ×2 (03:46→16:06)
[2022-11-17 07:09] LABS: Absolute Basophil Count 0.02 10^3/uL (0.0-0.2); Absolute Eosinophil Count 0.26 10^3/uL (0.0-0.7); Absolute Lymphocyte Count 0.77 10^3/uL (1.2-3.4); Absolute Monocyte Count 1.46 10^3/uL (0.1-0.8); Absolute Neutrophil Count 8.58 10^3/uL (1.2-6.7); Basophils % 0.2; Eosinophils % 2.3; HCT 26.1 % (40.0-50.0); HGB 7.9 g/dL (13.5-17.5); Immature Grans % 1.8; Lymphocytes % 6.8; MCHC 30.3 % (32.0-36.0); MCV 93 fL (80-95); Monocytes % 12.9; Platelet Count 324 10^3/uL (130-400); RBC 2.82 10^6/uL (4.36-5.78); RDW-SD 47.3 fL; WBC 11.29 10^3/uL (4.4-10.8)
[2022-11-17 07:28] LABS: Anion Gap 6.4 mmol/L (3-11); BUN 79 mg/dL (7-18); CO2 29.6 mmol/L (21.0-32.0); CREATININE 2.1 mg/dL (0.70-1.30); Calcium 9.1 mg/dL (8.5-10.1); Chloride 100 mmol/L (98-107); Estimated GFR 32.42 (mL/min/1.73m2); Glucose 85 mg/dL (74-106); Magnesium 1.9 mg/dL (1.8-2.4); Potassium 5.6 mmol/L (3.5-5.1); Sodium 136 mmol/L (136-145)
[2022-11-17] MEDS: ALPRAZolam 0.5 MG TAB PO (07:41)
[2022-11-17] MEDS: guaiFENesin 600 MG TABCR PO ×2 (07:42→20:54)
[2022-11-17] MEDS: Benzonatate 200 MG CAP PO ×3 (07:42→20:53)
[2022-11-17] MEDS: DULoxetine 30 MG CAP 60 MG PO (07:42)
[2022-11-17] MEDS: Vitamins B Comp w/C TAB 1 TAB PO (07:42)
[2022-11-17] MEDS: Omeprazole 20 MG CAPCR PO (07:42)
[2022-11-17] MEDS: Ferrous Sulfate 325 MG TAB PO (07:43)
[2022-11-17] MEDS: Magnesium Chloride 64 MG TABCR 128 MG PO (07:43)
[2022-11-17] MEDS: Finasteride 5 MG TAB PO (07:43)
[2022-11-17] MEDS: Ascorbic Acid 500 MG TAB PO ×2 (07:44→20:54)
[2022-11-17] MEDS: Docusate Sodium 100 MG CAP PO (07:44)
[2022-11-17] MEDS: Metoprolol CR 50 MG TABCR PO (07:44)
[2022-11-17] MEDS: Heparin 5,000 UNITS/ML VIAL 5000 UNITS SC ×3 (07:45→23:15)
[2022-11-17] MEDS: Triamcinolone 0.1% CR 15 GM TUBE TP ×2 (08:10→21:24)
[2022-11-17] MEDS: Nystatin POWDER 60 GM JAR TP ×3 (08:10→21:24)
[2022-11-17] MEDS: Lachydrin 12% LOTION 225 GM BTL TP ×2 (08:10→20:56)
[2022-11-17] MEDS: Normal Saline Flush 10 ML SYR IVP (09:00)
[2022-11-17] MEDS: Budesonide/Formoterol 160/4.5 6 GM 60 PUFF INH IH ×2 (09:52→19:15)
[2022-11-17 10:37] LABS: Vancomycin, Trough 16.4 ug/mL (10.0-20.0)
--- NOTE | 2022-11-17 10:44 | PDOC.CMPRO ---
Date of service: 11/17/22 Time of Service: 10:44 Care Management Progress Note Progress Note Text Progress Note Text: S/O:Shivam was sitting up in a chair when CM met with him. He was pleasant and engaged well with CM. Shivam's left leg remains very red and edematous, however he stated that the pain is much improved. Shivam had questions about his insurance coverage and expressed concern that they might not pay if his IV was removed. CM assured him that coverage continues as long as there is a medical need for hospitalization. Shiv[facility] and his plan is to return there upon discharge. A: Shivam is a 72 year old man admitted on 11/15/22 from [facility] with cellulitis and ELVIRA P?Shivam will return to [facility] when medically cleared by provider.? He will follow up with his PCP and plan of care as prescribed.? He will be transported back to the [facility] via facility van when ready.? CM will continue to follow. cc
--- NOTE | 2022-11-17 14:06 | PTTR_ITS ---
Date of service: 11/17/22 Time of Service: 10:29 PT Notes Visit Reasons: Cellulitis,ELVIRA with CKD Inpatient Physical Therapy Treatment Note [facility] Date: 11/17/22 PRECAUTIONS: Fall, standard, activity as tolerated. SUBJECTIVE: Morning: Patient sitting up in recliner, reports his left leg really needs to be repositioned. Also reports he fell this morning transferring. Agreeable to therapy. Afternoon: Supine in bed, agreeable to sit EOB, not agreeable to standing. OBJECTIVE: ? PAIN: Yes, 11/05 in LLE Afternoon: Patient reports his pain is uncontrolled. Nursing made aware. VITALS: monitored by nursing staff. ? Therapeutic Activities (39877d[]): Direct one-on-one instruction in dynamic activities to improve functional performance. ? BED MOBILITY/TRANSFERS? Rolling L/R: [] Supine-sit: []? Sit-supine: [] ? Sit-stand: []? Stand-sit: [] ? Bed-Chair: [] ? Chair-bed: [] Provided skilled cues and instruction on performance and technique throughout. Gait Training (95118g[]): Direct one-on-one instruction and skilled instruction in: [] employing an assistive device [] modified weight-bearing status [] movement sequencing [] turning and movement with proper form [] Provided verbal cues for equipment management and technique [] Provided instruction in gait pattern [] Patient education regarding pacing and breathing techniques to maximize activity tolerance? GAIT? Assistive Device: []? Weight bearing: [] Assist: [] ? Distance:? [] ? Deviation: [] ? STAIRS:[] ? Therapeutic Exercises (98482p0): Direct one-on-one instruction in therapeutic exercises to develop strength, endurance, range of motion and flexibility. ? Exercises: Seated LE strengthening including LAQ's, ankle pumps, seated marching, hip ab/adduction. Sit to stand x 2, standing tolerance 30 seconds. Patient becomes flustered / agitated, feels as though his legs might buckle, requests to sit. ? Provided skilled instruction in proper exercise performance Provided skilled manual cues to facilitate proper muscle recruitment and/or form: Mod assist to stand. Neuromuscular Re-education (afternoon: 16572i5): Activities that facilitate re- education of movement balance, posture, coordination, and proprioception or kinesthetic sense, requiring skilled tactile and verbal cues ? Exercises/techniques: Unsupported sitting EOB with eyes closed to challenge static sitting balance. Seated reaching activities EOB to facilitate feed forward dynamic balance. ASSESSMENT:? Patient tolerates therapy well, Is capable of more than he believes himself to be as evidenced by him stating that he requires assistance to mobilize LLE, but he gets it into bed independently. Patient also reports wishing he could just be done with it all. PLAN: Continue global strengthening per plan of care. Report change in affect to RNPALAK. Suggest mental health consult. TREATMENT CODE/TIME: 47279 Ther Ex 30 minutes beginning at 10:29, 47292 Neuro Harvinder 15 minutes beginning at 16:42
[2022-11-17] MEDS: Atorvastatin 40 MG TAB 80 MG PO (20:52)
[2022-11-17] MEDS: Acetaminophen 325 MG TAB PO (20:53)
[2022-11-17] MEDS: Insulin Aspart 300 UNITS/3 ML PEN SC (20:57)
[2022-11-17] MEDS: Melatonin 3 MG TAB 6 MG PO (22:16)
[2022-11-17] MEDS: oxyCODONE 5 MG TAB PO (22:17)
[2022-11-18] VITALS (11 sets, daily range): BP systolic 82–134; BP diastolic 48–68; PULSE 43–85; RESP 18–95; TEMP 35.9–37.4; O2SAT 90–96
[2022-11-18] MEDS: IMIPENEM/CILASTATIN 500 MG in Normal Saline 100 ML 200 MG IVPB ×4 (04:16→21:29)
[2022-11-18] MEDS: oxyCODONE 5 MG TAB PO ×4 (04:17→22:51)
[2022-11-18 06:47] LABS: Abs Immature Grans 0.39 10^3/uL (0.0-0.06); Absolute Basophil Count 0.03 10^3/uL (0.0-0.2); Absolute Eosinophil Count 0.34 10^3/uL (0.0-0.7); Absolute Lymphocyte Count 1.02 10^3/uL (1.2-3.4); Absolute Monocyte Count 1.47 10^3/uL (0.1-0.8); Absolute Neutrophil Count 7.62 10^3/uL (1.2-6.7); Basophils % 0.3; Eosinophils % 3.1; HCT 26.2 % (40.0-50.0); HGB 8.1 g/dL (13.5-17.5); Immature Grans % 3.6; Lymphocytes % 9.4; MCH 28.7 pg (27.0-33.0); MCHC 30.9 % (32.0-36.0); MCV 93 fL (80-95); Monocytes % 13.5; Neutrophils % 70.1; Nucleated RBC 0.2 % (0.0-0.3); Platelet Count 323 10^3/uL (130-400); RBC 2.82 10^6/uL (4.36-5.78); RDW 13.9 % (11.8-14.1); RDW-SD 47.4 fL; WBC 10.87 10^3/uL (4.4-10.8)
[2022-11-18 07:06] LABS: Anion Gap 6.1 mmol/L (3-11); BUN 70 mg/dL (7-18); C-Reactive Protein 23.92 mg/dL (0.0-0.3); CO2 28.9 mmol/L (21.0-32.0); CREATININE 1.9 mg/dL (0.70-1.30); Calcium 8.9 mg/dL (8.5-10.1); Chloride 101 mmol/L (98-107); Estimated GFR 36.56 (mL/min/1.73m2); Glucose 113 mg/dL (74-106); Potassium 5.7 mmol/L (3.5-5.1); Sodium 136 mmol/L (136-145)
[2022-11-18] MEDS: Budesonide/Formoterol 160/4.5 6 GM 60 PUFF INH IH ×2 (08:41→19:34)
[2022-11-18] MEDS: Benzonatate 200 MG CAP PO ×3 (09:08→19:30)
[2022-11-18] MEDS: Vitamins B Comp w/C TAB 1 TAB PO (09:08)
[2022-11-18] MEDS: DULoxetine 30 MG CAP 60 MG PO (09:08)
[2022-11-18] MEDS: Magnesium Chloride 64 MG TABCR 128 MG PO (09:08)
[2022-11-18] MEDS: ALPRAZolam 0.5 MG TAB PO (09:09)
[2022-11-18] MEDS: Ferrous Sulfate 325 MG TAB PO (09:09)
[2022-11-18] MEDS: guaiFENesin 600 MG TABCR PO ×2 (09:09→19:33)
[2022-11-18] MEDS: Metoprolol CR 50 MG TABCR PO (09:09)
[2022-11-18] MEDS: Ascorbic Acid 500 MG TAB PO ×2 (09:09→19:33)
[2022-11-18] MEDS: Heparin 5,000 UNITS/ML VIAL 5000 UNITS SC ×2 (09:10→15:09)
[2022-11-18] MEDS: Finasteride 5 MG TAB PO (09:10)
[2022-11-18] MEDS: Docusate Sodium 100 MG CAP PO (09:10)
[2022-11-18] MEDS: Triamcinolone 0.1% CR 15 GM TUBE TP ×2 (09:12→19:35)
[2022-11-18] MEDS: Lachydrin 12% LOTION 225 GM BTL TP ×2 (09:14→19:34)
[2022-11-18] MEDS: Nystatin POWDER 60 GM JAR TP ×3 (09:14→20:00)
--- NOTE | 2022-11-18 09:53 | CMPROGNOTE_ITS ---
Date of service: 11/18/22 Time of Service: 09:53 Care Management Progress Note Progress Note Text Progress Note Text: S/O:Shivam was sitting up in a chair when CM met with him. The DELINQUENT NOTICE MACHINE OPERATOR reported to CM that Shivam had made comments suggesting that he does not want to live anymore. CM discussed this with the provider and a mental health crisis consult was ordered as well as a palliative consult. CM discussed both with Shivam. He admitted that in the last few days he has sometimes felt like it would be better if he was not here anymore. He admitted it was due to the extreme pain he is having because of the cellulitis in his leg. He has chronic pain from arthritis but he stated this is worse. CM informed the provider that Shivam's pain is not controlled with the current regimen and she agreed and made some changes.Shivam was not familiar with Pallliative Care, but when CM explained it, he shared that he tthought it would be helpful. A: Shivam is a 72 year old man admitted on 11/15/22 from [facility] with cellulitis and ELVIRA P?Shivam will return to [facility] when medically cleared by provider.? He will follow up with his PCP and plan of care as prescribed.? He will be transported back to the [facility] via facility van when ready.? CM will continue to follow.
--- NOTE | 2022-11-18 12:00 | PGE_ITS ---
Date of Service Date of service: 11/18/22 Time of Service: 12:01 Assessment and Plan Assessment and plan (1) Cellulitis of left leg: Status: Acute Assessment and plan: continue antibiotics elevate leg as much as possible. (2) ELVIRA (acute kidney injury): Status: Acute Assessment and plan: acute on chronic and received IV hydration monitor kidney function avoid nephrotic drugs, lisinopril placed on hold renal dose as needed. (3) Venous insufficiency: Status: Acute Assessment and plan: Chronic and associated with morbid obesity Weight loss would be helpful. Patient is a diabetic and should consider GLP-1 agonist for weight loss. (4) Uncontrolled type 2 diabetes mellitus with chronic kidney disease: Status: Chronic Assessment and plan: should consider GLP-1 agonist chronically which also would help with weight loss. continue diabetic diet, sliding scale coverage as needed. A1C (5) Chronic pain of right wrist: Status: Acute Assessment and plan: requesting luisana wrap and diclofenac gel which is effective . orders placed. 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 no suicidal plan. mental health and palliative care consults pending discussed with DR Peng Subjective Subjective Patient reports: still having pain, tolerating liquids well and tolerating a regular diet Interval history since last seen: c/o right wrist pain, this is chronic. Exam Const General: frail appearing and ill appearing chronically Nutritional Appearance: obese Orientation: alert, awake and oriented x3 HENMT Head: normal to inspection and normocephalic Mouth: moist mucous membranes abnormal (slightly dry) Resp Effort & Inspection: normal respiratory effort Auscultation: diminished lung sounds Cardio Rate: regular rate GI Inspection: obesity Skin General skin exam: crusts and dry skin Rashes: rashes noted (Left lower extremity erythema within skin markings. Venous stasis) Extrem General: edema (Greater than right) Laterality: left Objective Last Vital Signs Temp 37.4 C 11/18/22 11:14 Pulse 60 11/18/22 11:23 Resp 24 11/18/22 11:14 BP 128/67 11/18/22 11:14 Pulse Ox 96 11/18/22 11:14 Laboratory Results - last 24 hr 11/18/22 11/18/22 06:25 06:25 WBC 10.87 H RBC 2.82 L Hgb 8.1 L Hct 26.2 L MCV 93 MCH 28.7 MCHC 30.9 L RDW 13.9 Plt Count 323 MPV 9.0 Immature Gran % 3.6 Neutrophils % 70.1 Lymphocytes % 9.4 Monocytes % 13.5 Eosinophils % 3.1 Basophils % 0.3 Nucleated RBC % 0.2 Absolute Neutrophils 7.62 H Absolute Lymphocytes 1.02 L Absolute Monocytes 1.47 H Absolute Eosinophils 0.34 Absolute Basophils 0.03 Sodium 136 Potassium 5.7 H Chloride 101 Carbon Dioxide 28.9 Anion Gap 6.1 BUN 70 H Creatinine 1.9 H Est GFR (CKD-EPI 2020) 36.56 Glucose 113 H Calcium 8.9 Magnesium 2.0 C-Reactive Protein 23.92 H Time Spent with Patient Time Spent with Patient: 25-34 minutes Time was spent: preparing to see the patient(eg.review tests), obtaining and/or reviewing separately otained hiistory, ordering medications,tests, procedures, referring, communicating with other health customer care consultant, indepentently interpreting results and counseling the patient
--- NOTE | 2022-11-18 14:41 | PDOC.MHCN ---
Date of service: 11/18/22 Time of Service: 10:15 PHQ-9 Over the last 2 weeks, how often have you been bothered by any of the following problems? 1. Little interest or pleasure in doing things: several days 2. Feeling down, depressed, or hopeless: several days 4. Feeling tired or having little energy: several days 5. Poor appetite or overeating: not at all 6. Feeling bad about yourself - or that you are a failure or have let yourself and your family down: not at all 7. Trouble concentrating on things, such as reading the newspaper or watching television: not at all 8. Moving or speaking so slowly that other people could have noticed? - Or the opposite - being so fidgety or restless that you have been moving around a lot more than usual: not at all 9. Thoughts that you would be better off or of hurting yourself in some way: not at all If you checked off any problems, how difficult have these problems made it for you to do your work, take care of things at home, or get along with other people?: not difficult at all Source: Developed by Drs. John Murcia, Zunilda Lan, Kingston Arriola and colleagues, with an educational andreia from [employer]. Suicide Severity Rate CSSRS Have you wished you were or wished you could go to sleep and not wake up?: No Have you actually had any thoughts of killing yourself?: No CSSRS2 Have you been thinking about how you might do this?: No Have you had these thoughts and had some intention of acting on them?: No Have you started to work out or worked out the details of how to kill yourself? Do you intend to carry out this plan?: No CSSRS3 Have you ever done anything, started to do anything or prepared to do anything to end your life?: No CSSRS4 Was this within the past three months?: No Screening Score Total Score: 0 Screening: Negative Mental Health Emergency Note Release [facility] release signed:: Yes Reason for Visit suicidal momentary ideation due to physical pain In the last 2 weeks has the pt presented for ES prior to today?: No Non Suicidal Self Injury Current: No Safety Risk/Harm to Self or Others Current Ideation to Harm Self or Others: No Risk: Does risk to harm exist?: No Risk: Low Risk Duty to warn indicated: No Asssessment/Mental Status Appearance: Other Attitude: Cooperative and Friendly Behavior: Unremarkable Speech: Normal Affect: Cogruent with mood Mood: Other Thought process: Unremarkable Hallucinations: No Delusions: No Attention: Unremarkable Perception: Not impaired Orientation: Fully orientated Memory: Intact Insight: Fair Judgement: Fair Neurovegetative Symptoms Sleep: No change Appetitie: No change Interests: No change Energy: Decrease Libido: Not applicable Additional Issues: Assaultive/Threatening Behavior: No Medical Concerns: Yes Client engaged in active self harm w/weapon: No Threatening to run away: No Child reported abuse/neglect: No Voluntarily presenting for services: Yes Domestic violence is a concern: No Extreme Psychosis or extreme behavior is present: No Impression This client presented well was focused. He was cooperative, calm, talaktive, and future focused. He is in the hospital due to severe pain from cellulitis. Resources Reosurces reviewed and given:: Other Plan/Disposition Recommended Disposition: Hospitalization No and Med management. Plan: This client will stay in the hospital until he gets a clean bill of health from his primary care docttor. he has a major infoection in his leg that he is currently being treated for at this time. Mental health will conduct another assessment if it is warranted Person reported agreement to plan: Yes Reports/communication Outcome discussed with: PCP/Personnel and Other
--- NOTE | 2022-11-18 15:40 | PTTR_ITS ---
Date of service: 11/18/22 Time of Service: 14:05 PT Notes Visit Reasons: Cellulitis,ELVIRA with CKD Inpatient Physical Therapy Treatment Note [facility] Date: 11/18/22 PRECAUTIONS: Fall risk. Standard. WBAT on B LE with AD. SUBJECTIVE: Per BRANDON Gonzales, patient is wanting to tranfer back to bed to rest for the afternoon. Patient appeared anxious about moving. Complained about pain in the L knee, leg, and foot with movement and weight bearing. OBJECTIVE:? ? General Observation: Erythema and swelling diminishing. Lymphorrhea noted. ? PAIN:7-8/10 in th L knee, leg and foot VITALS: Monitored by nursing staff??? BED MOBILITY/TRANSFERS: BRANDON Gonzales assisted with chair to bed transfer for safety. Rolling L/R: moderate assist of 2, cues needed for hand placement and movement sequencing? Sit-supine: moderate assist of 2? Sit-stand from bedside chair: minimal assist of 2, cues needed for hand placement, trunk and B LE movement sequencing? Stand-sit onto edge of bed: moderate assist of 2, cues needed for hand placement, trunk and B LE movement sequencing? Chair-bed: moderate assist of 2? GAIT:?BRANDON Gonzales assisted with chair to bed transfer for safety. ? Assistive Device: Standard bariatric FWW Weight bearing: WBAT on B LE Assist: Moderate assist of 2 with moderate cues provided for management of bariatric walker, trunk positioning, limb advancement, and safe, slow turning technique to minimize pain and reduce fall risk ? Distance:?5 steps ? Deviation: Antalgic, decreased knee flexion, inadequate trunk extension? THERA EX: Training and education provided on therapeutic exercises to develop strength, endurance, range of motion and flexibility of B LE joints/muscles: Toe curls on B sides x 10 in supine Deep breathing exercises x 5 Ankle DF/PF x 10 in supine Deep breathing exercises x 5 Hip IR on B sides x 10 Deep breathing exercises x 5 ? ASSESSMENT:? Patient continues to be limited by pain, high BMI, and L knee pain. Cellulitis symptoms diminishing. Responds much better if pre-medicated for pain. Recommended to SENIOR LEAD SOFTWARE ENGINEER Payal OT referral to manage R hand arthritic symptoms. ? PLAN: Pre-medicate for pain to improve performance. Progress strength, balance, activity tolerance, and mobility level as tolerated to achieve originally established goals. TREATMENT CODE/TIME: 51132 x 14 minutes beginning at 14:05 PM.
--- NOTE | 2022-11-18 16:00 | PT.INTREAT ---
Date of service: 11/18/22 Time of Service: 11:36 PT Notes Visit Reasons: Cellulitis,ELVIRA with CKD Inpatient Physical Therapy Treatment Note [facility] Date: 11/18/22 PRECAUTIONS: Fall, standard, activity as tolerated. SUBJECTIVE: Patient continues to remark that his pain is not well controlled, and that he does not believe he is going to get better and he'd rather not live like this. OBJECTIVE: Supine in bed. Rodney catheter in place. Agreeable to therapy. ? PAIN: 12/06 VITALS: monitored by nursing staff. ? Therapeutic Activities (00560d9): Direct one-on-one instruction in dynamic activities to improve functional performance. ? BED MOBILITY/TRANSFERS? Supine-sit: mod assist ? Sit-supine: mod assist ? Sit-stand: Max x2 ? Stand-sit: mod x2 ? Bed-Chair: max x2 ? Chair-bed: max x2 Provided skilled cues and instruction on performance and technique throughout. ? Therapeutic Exercises (76022d9): Direct one-on-one instruction in therapeutic exercises to develop strength, endurance, range of motion and flexibility. ? Exercises: 2x5 SAQ's, SLR's, quad sets. 1x5 ankle pumps. 2x5 seated marching in recliner. ? Provided skilled instruction in proper exercise performance Provided skilled manual cues to facilitate proper muscle recruitment and/or form: AAROM exercises to LLE; patient requires assistance to mobilize it due to weakness, edema. ASSESSMENT:? Patient tolerates therapy well PLAN: Continue global strength and conditioning per plan of care until patient is medically cleared for discharge. TREATMENT CODE/TIME: 07190 ther act 10 minutes, 60063 ther ex 13 minutes beginning at 11:36
[2022-11-18] MEDS: Diclofenac 1% Gel 100 GM TUBE TP ×2 (16:12→19:35)
--- NOTE | 2022-11-18 16:25 | CMPROGNOTE_ITS ---
Care Management Progress Note Progress Note Text Progress Note Text: Shivam met with Humza from [facility] and stated he found the meeting helpful. Humza informed that he does not feel that Shivam is suicidal and that he indicated that he wants to live for his children and grandchildren.
[2022-11-18] MEDS: HYDROmorphone 2 MG/ML SYR 1 MG IVP (19:28)
[2022-11-18] MEDS: Atorvastatin 40 MG TAB 80 MG PO (19:30)
[2022-11-18] MEDS: Melatonin 3 MG TAB 6 MG PO (19:31)
[2022-11-18] MEDS: Acetaminophen 325 MG TAB 650 MG PO (19:32)
--- NOTE | 2022-11-18 20:00 | RT.EKG_ITS ---
APPROVED REPORT Exam: Resting ECG Reason for Exam: bradycardia Patient Location: I HR:107 bpm ECG Measurements Heart Rate 107 AXIS SC [id number] P [id number] QRSd 48 QRS 0 QT 451 T -50 QTc 602 Conclusion Sinus rhythm Paired ventricular premature complexes...sequence of 2 V complexes Indeterminate axis...QRS axis indeterminate Low voltage, precordial leads...precordial leads <1.0mV Right bundle branch block
[2022-11-18] MEDS: Insulin Aspart 300 UNITS/3 ML PEN SC (21:29)
[2022-11-18 23:41] LABS: Lactate 0.7 mmol/L (0.6-1.4)
[2022-11-19] VITALS (27 sets, daily range): BP systolic 88–141; BP diastolic 48–77; PULSE 27–142; RESP 13–26; TEMP 36.4–37.1; O2SAT 90–97
[2022-11-19] MEDS: Lactated Ringers 250 ML 999 ML IV
[2022-11-19] MEDS: Heparin 5,000 UNITS/ML VIAL 5000 UNITS SC ×4 (00:17→23:43)
[2022-11-19] MEDS: Hydrocortisone SOD SUC. 100 MG VIAL IVP (00:19)
--- NOTE | 2022-11-19 01:04 | NUR.NOTE ---
3898-This nurse was unable to get a bp on pt. Manual bp 82/40-53HR which was irregular, which was a new finding. Dr Smith notified. Lactate draw, LR bolus hydrocortisone 100 mg iv given. Manual HR 27. Pt transferred to ICU, report given to BENOIT Rodriguez
--- NOTE | 2022-11-19 01:08 | PGE_ITS ---
Date of Service Date of service: 11/19/22 Time of Service: 01:32 Assessment and Plan Assessment and plan (1) Bradycardia: Start date: 11/18/22 Status: Acute Assessment and plan: This is a 72-year-old gentleman with new onset bradycardia and hypotension who is admitted with cellulitis but also has gram-negative robina bacteremia with co ncerns for possible sepsis. He did respond to a small IV normal saline bolus of 250 cc and will be continued on normal saline at 125 cc an hour overnight to which he appears to be responding with improved heart rate and more periods of sinus rhythm. He appears to have possible atrial fibrillation or slow sinus rhythm with LA interval appearing narrow as well as increased ectopy with PVCs and couplets which were improving with IV hydration. His metoprolol will be held and reevaluated. If he needs metoprolol does need to be given small doses but dosing. 45 minutes was spent with the patient at bedside evaluating his status and modifying medical therapy with review of labs and follow-up on response to therapy. (2) Bacteremia due to Gram-negative bacteria: Status: Acute Assessment and plan: Patient has gram-negative robina with pathogen pending. He is on imipenem and per up-to-date the patient will be placed and aminoglycoside with tobramycin being preferred. He does have CKD this needs to be adjusted appropriately. He is receiving gentle IV fluids because of possible sepsis and is responding with less bradycardia and improved systolic blood pressure above 120. He did receive hydrocortisone 100 mg IV this can be continued if he has sepsis syndrome. He does have hyperglycemia. There is concern of fluid overload his elevated BNP and echocardiogram should be updated. (3) CHF (congestive heart failure): Status: Chronic Assessment and plan: Patient appears to have an elevation in BNP but there is no echocardiogram which will be updated. IV fluids should be discontinued if he continues to be improved. Subjective Subjective Interval history since last seen: This is 72-year-old male patient who is on imipenem for cellulitis but did have gram-positive rods in his blood with bacteremia. During the day he told the nurses he felt impending doom. I was called to see the patient because of slow heart rate with soft blood pressures and patient taking metoprolol succinate 50 mg in the morning. There is no clear history of atrial fibrillation past med ical history. He states he does have CAD. The patient also had a systolic blood pressure with when she was below 90 manual blood pressure measurements though he was not diaphoretic or having complaints of shortness of breath or chest pain. Per sepsis protocol the patient was given hydrocortisone 100 mg IV and was given 250 cc normal saline bolus which made him feel better. He did appear more comfortable in the ICU was admitted for closer monitoring after this bolus. He has not had an echocardiogram in the recent past which will be ordered. His BNP was slightly elevated upon admission just below 1000 with repeat performed. His EKG showed no acute ST-T changes with a question of an acute posterior infarct with troponin lactic acid and procalcitonin ordered as well. Patient offered no other new complaints and was not feeling impending doom this time because of fluid bolus. He did have good urine output during the day. He does have a history of CKD. Initially he was on vancomycin and Zosyn for cellulitis and as stated this is been changed to imipenem. Exam Narrative Exam Narrative: General: Patient is alert and oriented x3 and in moderate distress stating he does not feel well but not tachypneic and speaking in clear sentences. HEENT: Normocephalic, eyes pupils equal react light symmetrically, extraocular intact and sclera anicteric. Oropharynx with moist Koza. Back: Stooped posture without CVA tenderness. Lungs: Occasional crackle without focalizing, fair aeration. Heart: Irregularly irregular rhythm with cardia monitor revealing With PVCs and low voltage sinus versus atrial fibrillation rhythm. Abdomen: Obese contour, soft nontender to palpation. Extremities: Chronic nonpitting edema with Edouard bandages over both legs. Chronic skin changes. Skin: Pale, warm and dry. Neuro: Cranial nerves II through XII gross intact, no focalizing motor deficits and no tremor. Psych: Flattened affect with depressed mood. No abnormal thought processes. Remote and recent memory grossly intact. Objective Last Vital Signs Temp 35.9 C L 11/18/22 22:52 Pulse 27 L 11/19/22 00:26 Resp 18 11/18/22 22:52 BP 100/58 L 11/19/22 00:26 Pulse Ox 95 11/18/22 22:52 Laboratory Results - last 24 hr 11/18/22 11/18/22 11/18/22 06:25 06:25 23:34 WBC 10.87 H RBC 2.82 L Hgb 8.1 L Hct 26.2 L MCV 93 MCH 28.7 MCHC 30.9 L RDW 13.9 Plt Count 323 MPV 9.0 Immature Gran % 3.6 Neutrophils % 70.1 Lymphocytes % 9.4 Monocytes % 13.5 Eosinophils % 3.1 Basophils % 0.3 Nucleated RBC % 0.2 Absolute Neutrophils 7.62 H Absolute Lymphocytes 1.02 L Absolute Monocytes 1.47 H Absolute Eosinophils 0.34 Absolute Basophils 0.03 VBG Lactate 0.7 Sodium 136 Potassium 5.7 H Chloride 101 Carbon Dioxide 28.9 Anion Gap 6.1 BUN 70 H Creatinine 1.9 H Est GFR (CKD-EPI 2020) 36.56 Glucose 113 H Calcium 8.9 Magnesium 2.0 C-Reactive Protein 23.92 H Reviewed Pertinent PMH: Yes Objective Narrative Objective Narrative: Lab review with EKG as above, troponin was slightly elevated above normal at 67, lactate was normal, BNP was elevated at 14,007 with C-reactive protein elevated at 23.92 and normal procalcitonin. Time Spent with Patient Time Spent with Patient: 35-49 minutes Time was spent: preparing to see the patient(eg.review tests), obtaining and/or reviewing separately otained hiistory, ordering medications,tests, procedures, indepentently interpreting results and care coordination
[2022-11-19] MEDS: Normal Saline 1,000 ML 100 ML IV (01:46)
[2022-11-19 01:48] LABS: Troponin I 67 ng/L (<or=60)
[2022-11-19 02:03] LABS: Procalcitonin 0.2 ng/mL
[2022-11-19] MEDS: oxyCODONE 5 MG TAB PO ×2 (04:38→23:43)
[2022-11-19] MEDS: IMIPENEM/CILASTATIN 500 MG in Normal Saline 100 ML 200 MG IVPB ×3 (04:38→22:07)
--- NOTE | 2022-11-19 05:06 | NUR.NOTE ---
OXYCODONE 5 MG GIVEN FOR C/O LOWER LEG PAIN
--- NOTE | 2022-11-19 06:51 | W.PULMCC ---
General Date of Service Date of service: 11/19/22 Time of Service: 06:51 Assessment and Plan Assessment and plan (1) CHF (congestive heart failure): Status: Chronic (2) Bacteremia due to Gram-negative bacteria: Status: Acute (3) Chronic kidney disease (CKD): Status: Chronic (4) Cellulitis of left leg: Status: Acute (5) Leukocytosis: Status: Acute (6) Anemia: Status: Chronic (7) Elevated troponin: Status: Acute (8) Right ventricular dilation: Status: Acute (9) Hypotension: Status: Acute Assessment and plan: This is a 72 yo transferred to the ICU for hypotension and bradycardia. His blood pressure is now improved and his rhythm has flipped back into a sinus rhythm. On POCUS his RV is very dilated and his IVC is large and plethoric. I stopped his IVF's while in the room. I suspect that his hypotension was more related to his cardiac rhythm and metoprolol as opposed to septic shock. His metoprolol has been held, as has his lisonopril. He is ordered for a formal echo today in order to better classify his cardiac function. He is diuresing, however he still may need diuresis if his fluid balance becomes too positive (-2L thus far during stay). Recommendations Pulmonary: Hypoxic respiratory failure - O2 for sats >90% - wean O2 - VibraPEP and IS - nebs QID Cardiac: Hypotension - resolved - presume related to bradyrrythmia - D/C IVF - hold metoprolol and lisinopril Bradyrrythmia - electrolytes have been stable - being rechecked today - hold metoprolol - consider cardiology assessment CHF - daily net negative fluid balance - 2L fluid restriction - 2g salt restriction - daily weights - I/O's - diuresis prn Renal: ELVIRA on CKD - ELVIRA improved, Cr back near baseline - I/O's I&O: Intake & Output 11/16/22 11/17/22 11/18/22 11/19/22 23:59 23:59 23:59 23:59 Intake Total 2813.333 / 2813.333 1480 / 1480 420 / 420 702.25 / 702.25 Output Total 2625 / 2625 3000 / 3000 3025 / 3025 1000 / 1000 Balance 188.333 / 188.333 -1520 / -1520 -2605 / -2605 -297.75 / -297.75 Weight 166.19 kg 166.92 kg 168 kg Daily Fluid Goal:: negative 500cc to 1L GI Nutrition: Has diet Date of Last Bowel Movement: 11/16/22 Infectious Disease: Cellulitis - on imipenem - blood culture with gram negative rods - await culture speciation - stop hydrocortisone Hematologic: Leukocytosis - improving, due to infection Neurologic: No acute concerns Endocrine: Diabetes - on SSI Lines: Lawson PIV Prophylaxis: heparin omeprazole Code Status: Resuscitation Status Full Code Subjective Critical and life-threatening events over the past 24 hours: This is a 72 yo with a history of CHF and chronic leg cellulitis was admitted to [facility] but overnight developed hypotension and bradycardia. He is being treated for a cellulitis with gram negative bacteremia. He had almost a trigeminy on his EKG which has since converted to sinus. He does flip into frequent PVC's but will revert back to sinus. He is on metoprolol which was held. He states he is feeling fine. He denies chest pains last night and this morning. His leg is in pain but he states he feels much better than he did a week ago. His renal function has been improving, which it is now close to baseline. He did have a small troponin elevation to 67. His bnp is very increased. Exam Narrative Exam Narrative: Gen: NAD, normal respiratory effort, obese HENT: PERRL, nasal turbinates normal without erythema or inflammation, moist oral mucosa, Mallampati 2, No LAD or JVD Chest: No respiratory distress, normal appearance of chest, diminished breath sounds anteriorly Heart: regular rate and rhythym, no murmurs, rubs or gallops Abdomen: Non-distended, soft, non tender Extremities: Bilateral lower extremity edema. Left leg erythema and tenderness with skin flaking. Neuro: AAOx3 , non focal Psych: cooperative, appropriate mental affect Most Recent VS/Results Last Vital Signs Temp 36.4 C L 11/19/22 05:42 Pulse 63 11/19/22 05:42 Resp 13 11/19/22 05:42 BP 135/63 11/19/22 05:42 Pulse Ox 96 11/19/22 05:42 Laboratory Results - last 24 hr 11/18/22 11/18/22 11/18/22 06:25 06:25 23:32 WBC 10.87 H RBC 2.82 L Hgb 8.1 L Hct 26.2 L MCV 93 MCH 28.7 MCHC 30.9 L RDW 13.9 Plt Count 323 MPV 9.0 Immature Gran % 3.6 Neutrophils % 70.1 Lymphocytes % 9.4 Monocytes % 13.5 Eosinophils % 3.1 Basophils % 0.3 Nucleated RBC % 0.2 Absolute Neutrophils 7.62 H Absolute Lymphocytes 1.02 L Absolute Monocytes 1.47 H Absolute Eosinophils 0.34 Absolute Basophils 0.03 VBG Lactate Sodium 136 Potassium 5.7 H Chloride 101 Carbon Dioxide 28.9 Anion Gap 6.1 BUN 70 H Creatinine 1.9 H Est GFR (CKD-EPI 2020) 36.56 Glucose 113 H Calcium 8.9 Magnesium 2.0 Troponin I C-Reactive Protein 23.92 H Procalcitonin 0.2 11/18/22 11/18/22 23:32 23:34 WBC RBC Hgb Hct MCV MCH MCHC RDW Plt Count MPV Immature Gran % Neutrophils % Lymphocytes % Monocytes % Eosinophils % Basophils % Nucleated RBC % Absolute Neutrophils Absolute Lymphocytes Absolute Monocytes Absolute Eosinophils Absolute Basophils VBG Lactate 0.7 Sodium Potassium Chloride Carbon Dioxide Anion Gap BUN Creatinine Est GFR (CKD-EPI 2020) Glucose Calcium Magnesium Troponin I 67 H* C-Reactive Protein Procalcitonin Review of Systems All systems reviewed & are unremarkable except as noted in HPI and below Time spent with patient Time spent in Critical Care: 45 Time spent in Critical care included: Performing procedures not included in c.c time, Chart review, Documenting critically ill care, Time at immediate bedside and Discussing critically ill care with other medical staff Multi-Disciplinary Checklist Lines/Tubes CENTRAL LINE: no ARTERIAL LINE: no LAWSON: yes, Lawson #: 4 ENDOTRACHEAL TUBE: no ICU Maintenance GLUCOSE 140-180mg/dL: yes NUTRITION AT GOAL: yes PRESSURE ULCER: no RESTRAINTS: no ANTIBIOTICS(if yes, consider Stewardship): Yes Social Issues FAMILY UPDATED: no, Reason/Intervention: patient able PT/OT: yes GOALS/DISPOSITION/GRAVITY PROSPECTING OPERATOR: yes CODE STATUS: Full Prophylaxis DVT PROPHYLAXIS: yes GI PROPHYLAXIS: yes, Indication: home med Pocus Exam Limited Cardiac Exam DATE OF EXAM: 11/19/22 TIME OF EXAM: 07:20 PROVIDER THAT PERFORMED THE STUDY: Mikayla Messina IS THIS A REPEAT EXAM DURING THIS ENCOUNTER: no REASON FOR EXAM: Hypotension VISUALIZED STRUCTURES: four chambers, Interventricular septum and IVC VIEW OBTAINED: Apical 4-Chamber, Parasternal long-axis, Parasternal short-axis and Subxiphoid PERTINENT FINDINGS/IMPRESSION: Plethoric IVC, RV dilation and RV dysfunction Exam complete
[2022-11-19 07:02] LABS: NT-proBNP 14007 pg/mL (<300)
--- NOTE | 2022-11-19 08:00 | PGE_ITS ---
Date of Service Date of service: 11/19/22 Time of Service: 08:00 Assessment and Plan Assessment and plan (1) Bacteremia due to Gram-negative bacteria: Status: Acute Assessment and plan: Patient is currently on meropenem he did get a dose of tobramycin last night. I would avoid aminoglycosides in this patient with chronic kidney disease. Overall his inflammatory markers have been declining. Critical care time spent interviewing and examining the patient, reviewing studies, discussing case with patient's nurse and consulting physicians was 45 minutes outside of any POCUS exam (2) Cellulitis of left leg: Status: Acute Assessment and plan: Continue wound care nurses recommendations continue antibiotics as listed above. (3) CHF (congestive heart failure): Status: Chronic Assessment and plan: [id number] ultrasound performed with Dr. Messina was reviewed by myself he appears to have normal LV function however she was only able to obtain limited windows and therefore I could not assess for regional wall motion abnormalities. Formal echocardiogram is pending. Nevertheless he has significant RV dilatation and evidence of elevated right-sided pressures as evidenced by his IVC dilatation and lack of inspiratory collapsibility. Present time patient does not need IV fluids but in fact probably needs further diuretics given his physical findings that suggest anasarca with ascites and peripheral edema and bilateral diffuse rales. Furthermore his [id number] ultrasound of his lungs shows diffuse B-lines. (4) Right ventricular dilation: Status: Acute Assessment and plan: Likely cor pulmonale secondary to obstructive sleep apnea which has been untreated. (5) Elevated troponin: Status: Acute Assessment and plan: Likely demand ischemia nevertheless we will cycle his troponins and check an echocardiogram. (6) Bradycardia: Status: Acute Assessment and plan: Continue monitoring (7) Ventricular bigeminy: Status: Acute Assessment and plan: Continues to exhibit intermittent ventricular bigeminy. Continue monitoring replete any electrolyte abnormalities (8) Hypotension: Status: Acute Assessment and plan: Transient hypotension was probably related to his bradycardia arrhythmia and fina tricular ectopy. Continue to monitor on telemetry. Patient has been formally transferred to the intensive care unit for close monitoring. If his troponins plateau or decline and he has no chest pain and blood pressures remained stable he can be treated back to the [facility] on telemetry (9) Chronic kidney disease (CKD): Status: Chronic Assessment and plan: . Avoid NSAIDs and any nephrotoxic drugs such as aminoglycosides. Continue to monitor his renal function as we diurese him. (10) Anemia: Status: Chronic Assessment and plan: Monitoring anemia and proceed with work-up including checking B12 folate iron studies. (11) Venous insufficiency: Status: Acute Assessment and plan: Patient needs to elevate his legs in addition to receiving diuretics. (12) ELVIRA (acute kidney injury): Status: Acute Assessment and plan: Renal functions improving his creatinine is now down to his baseline of 1.9. Continue to monitor. (13) DVT prophylaxis: Status: Acute Assessment and plan: Patient is on subcutaneous heparin Subjective Subjective Interval history since last seen: Patient complaining of left foot/ankle pain. Oxycodone does not seem to help mu ch. Unfortunately his renal function is too bad to allow use of NSAID's. He had hypotension last night probably related to his bradyarrhtymia and ventricular ectopy. He is in sinus rhythm w/ frequent PVC's including ventricular bigeminy and trigeminy. Troponin I was checked last night and is mildly elevated. He was moved to ICU but no formal transfer order was placed (I have corrected this). He was given iv fluid bolus 250 mL and put on iv fluids at 150 mL/hr which I have since stopped. Dr. Messina performed POCUS echo and he has RV dilatation and his IVC is dilated. I am putting him on lasix drip. Formal echo is pending this morning. He denies any chest pain or pressure. Exam Narrative Exam Narrative: Morbidly obese white male lying in bed mildly dyspneic with any prolonged conversation. HEENT neck veins are difficult to discern as they are obese short neck Lungs with diffuse expiratory wheezes anteriorly and posteriorly Heart is regular with frequent ectopic beats review of telemetry shows he is in sinus rhythm with frequent PVCs including ventricular bigeminy and trigeminy I did not appreciate a murmur difficult to auscultate due to his obesity Abdomen obese soft and nontender Lower extremities left leg is erythematous from the foot and ankle up to the mid tibia is tender and he has 3+ pitting edema of his left leg and 2+ pitting edema of his right leg. Neuro exam grossly intact no focal motor deficits normal speech no focal cranial nerve deficits. Objective Last Vital Signs Temp 36.4 C L 11/19/22 05:42 Pulse 63 11/19/22 05:42 Resp 13 11/19/22 05:42 BP 135/63 11/19/22 05:42 Pulse Ox 96 11/19/22 05:42 Laboratory Results - last 24 hr 11/18/22 11/18/22 11/18/22 23:32 23:32 23:34 VBG Lactate 0.7 Troponin I 67 H* NT-Pro-B Natriuret Pep Procalcitonin 0.2 11/19/22 06:11 VBG Lactate Troponin I NT-Pro-B Natriuret Pep 96831 H Procalcitonin Time Spent with Patient Time Spent with Patient: 35-49 minutes Time was spent: preparing to see the patient(eg.review tests), referring, communicating with other health resident care associate (Dr. Messina), indepentently interpreting results, counseling the patient and care coordination
--- NOTE | 2022-11-19 08:00 | DI.US_ITS ---
APPROVED REPORT EXAM: Comprehensive 2D, Doppler, and color-flow Echocardiogram Patient Location: In-Patient Room/Bed: [address] Supervisor: Marcello Rossi RDCS Indications: CHF Other Information Study Quality: Poor. Technically limited study due to body habitus, inability to position patient, pt inability to perform breathing maneuevers. Conclusion Technically limited and suboptimal study Left ventricle appears grossly normal in size wall thickness and systolic function. Right atrium and right ventricle are dilated Left atrial size is normal No structural valvular disease is identified The aortic root and ascending aorta are mildly dilated Wall motion Left Ventricle Left ventricle is normal technically limited study due to patient's body habitus. The left ventricula r systolic function appears grossly normal. There is normal left ventricular wall thickness. There ap pears to be normal LV segmental wall motion. Unable to obtain subcostal imaging due to patient's body habitus and inability to perform breathing maneuvers. Right Ventricle Right ventricle is moderate to severely dilated. The RVSP is 15.6 mmHg. Atria The left atrium size is normal. Right atrium is moderately dilated. Unable to obtain subcostal imagi ng due to patient's body habitus and inability to perform breathing maneuvers. Aortic Valve The aortic valve is normal in structure. Aortic valve is trileaflet. There is no aortic valvular sten osis. No aortic regurgitation is present. Mitral Valve There is mitral annular calcification. No evidence of mitral valve stenosis. There is no mitral valve regurgitation noted. Tricuspid Valve The tricuspid valve is normal in structure. There is no tricuspid valve stenosis. Trace tricuspid reg urgitation. The RVSP is 15.6 mmHg. Pulmonic Valve Pulmonic valve is not well visualized. There is no pulmonic valvular regurgitation. Great Vessels Aortic root is mildly dilated. The ascending aorta is mildly dilated. Aortic arch is not well visuali zed. IVC is normal in size and collapses >50% with inspiration. Pericardium Unable to obtain subcostal imaging due to patient's body habitus and inability to perform breathing m aneuvers. 2D Dimensions IVSD d PLAX 0.80 cm M: 0.6-1.2 LV Vol A4C d MOD 298.0 mL LVPW d PLAX 0.80 cm M: 0.6 - 1.2 LV EF A4C MOD 56.8 % LVID d PLAX 6.13 cm M: 4.2 - 5.8 LVDs 4.30 cm M: 2.5 - 4.0 Ao Root d 3.88 cm M: 3.1 - 3.7 RA Area A4C 30.24 cm2 Ao Asc Diam d 3.57 cm M: 2.6 - 3.4 LV EF Teichholz 56.0 % FS 29.80 % LV Diastology MV E' medial 0.063 (>0.07 m/s) E/A Ratio 1.2 LV E/e MED 16.20 (<14) MV E Vmax 1.02 (0.4-1.3 m/s) MV E' lateral 0.118 (>0.1 m/s) MV A Vmax 0.85 (0.4-1.3 m/s) LV E/e LAT 8.62 (<14) MV E/E' medial 16.20 MV E/E' lateral 8.62 MV (E/E' average) 11.25 Aortic Valve LVOT Vmax 1.18 m/s AoV Area Vmax 1.70 cm2 LVOT Peak Grad 5.6 mmHg LVOT Mean Grad 4.6 mmHg LVOT Diam s 1.85 cm AoV Peak Grad 15.0 mmHg LVOT SV 65.00 mL AoV Mean Grad 7.1 mmHg AoV Area VTI 1.56 cm2 Mitral Valve MV DT 122 (160-240 msec) Pulmonary Valve PV Mean Grad 3.8 mmHg RVOT Peak Gr. 1.08 mmHg RVOT Mean Gr. 0.40 mmHg RVOT VTI 0.075 m RVOT Vmax 0.52 m/s Tricuspid Valve TR Peak Grad 12.5 mmHg RA Pressure 3.00 mmHg RVSP (TR) 15.6 mmHg
--- NOTE | 2022-11-19 08:20 | W.PALLCONSUL ---
Date of service: 11/19/22 Time of Service: 10:59 History of Present Illness Narrative: Mr. Lagunas is 72 yo man Lives at [facility] who was admitted to the hospital several days ago with right leg cellulitis. Medical problems include chronic venous stasis, CHF, CKD 3, type 2 diabetes,. Palliative care team has been asked to meet with him for to help with symptom management (pain, depression) and goals of care discussion. Pain: Bilateral knee pain (DJD, not a surgiucal candidate), Shoulder pain (chronic). WOrse L leg pain since cellulitis stared n the last week. -Was getting tylenol for pain at SNF. Reports overall pain prior to developing cellulitis usually 5/10 -Was also getting Celebrex as per records (he never heard of it). -Never got opioids at SNF. -Is on duloxetine (not sure if this is for pain or for depression, cannot recall how long he has been on it. -Has scoliosis, can cause some back pain. -Since arrival in hospital pain has been 9?10/10, leg hurts mostly but also shoulder and sometimes back. Has been receiving opioids. Says actually pain is down to 7/10 at the end of my visit with him. DJD knees: This is what mainly limited his ambulation participates in PT Participates in music presentations at SNF. Care Team: Primary Care physician: BERTA Velazquez ([facility] medical team) Social HX: . Living in [facility] since about 2022. Previous to that living in apartment in [facility] with lots of help from Son. Initially admitted to [facility], which then closed.. 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 Evin (Son ) and daughter (Yani) live in [place]. Third child estranged. Hobbies: Watch TV, will participate in some activities at SNF but not many. Friends do not come to visit. Family is supportive. Impression of currents health status: What bothers you the most: That he can't take care of himself. What worries you the most: Heart (heart attack)and left leg (worried about losing leg) Goals:To get stronger so that he can take care of himself. Get better (cellulitis) Current information preferences: Function: Ambulation: Previously used a walker. ADLs:Needs assist with dressing and showering. Needed help getting to the toilet. iADLs: Pays his own bills, Otherwise dependent. Hearing: Slightly reduced Vision: Glasses. Falls (fell 2 days ago when he tried to stand) cognition: Memory Palliative Performance Scale % Ambulation Activity and Evidence of Disease Self Care Intake Level of Consciousness 100 Full Normal activity, no evidence of disease Full Normal Full 90 Full Normal activity, some evidence of disease Full Normal Full 80 Full Normal activity with effort, some evidence of disease Full Normal or reduced Full 70 Reduced Unable to do normal work, some evidence of disease Full Normal or reduced Full 60 Reduced Unable to do hobby or some housework, significant disease Occasional assist necessary Normal or reduced Full or confusion 50 Mainly sit/lie Unable to do any work, extensive disease Considerable assistance required Normal or reduced Full or confusion 40 Mainly in bed Unable to do any work, extensive disease Mainly assistance Normal or reduced Full, drowsy, or confusion 30 Totally bed bound Unable to do any work, extensive disease Total care Reduced Full, drowsy, or confusion 20 Totally bed bound Unable to do any work, extensive disease Total care Minimal sips Full, drowsy, or confusion 10 Totally bed bound Unable to do any work, extensive disease Total care Mouth care only Drowsy or coma 0 - - - - Patient Score: 50 Spiritual history: Coping: nothing helps. Palliative review of systems: Pain: See hpi Dyspnea: None currently GI symptoms: Appetite: Depression:FUstrated Anxiety:Not sure (on chronic alprazolam Emotional Distress: Just cant get comfortable Spiritual/Existential Distress: Labs: Cr: 1.9 today (2.7 at admission, 1.03 July 2022) Liver panel:NL Albumin: 2.0 CBC: hgb 8.8 Advanced Care Planning: Advanced Directive: Has a living Will, Requested from SNF Health Care Agent: Daughter Yani COOPER: None Limitations: Assessment and Plan Assessment and plan (1) Palliative care encounter: Status: Acute Assessment and plan: I met in person with patient in intensive care unit today and then spoke on phone with son Evin. Patient was quite tired, having been up for much of the night after transfer to ICU. Overall, I get the sense that patient is depressed and that depression is chronic. He is currently on Cymbalta 60 mg daily. Would suggest that long-term facility follow-up on this once he is back there. Consider consult for counseling (if they use [facility] or similar mental health consultants to see residents). I would not change antidepressant at this time. (2) Advanced care planning/counseling discussion: Status: Acute Assessment and plan: Goals of care discussion: Patient could not think of anything that he is looking forward to in the next month or 2. He hopes that his leg will get better. He would like to be more independent. Regarding CODE STATUS: Patient currently listed as full code. We discussed the procedure of CPaR, actual mechanical process, rate of success in restoring heartbeat, short and long-term side effects in survivors (including likely decreased physical and cognitive functioning). Questions were answered. He says he would like a trial of CPR even after hearing about low success rate and poor outcomes. He is however willing to have a family meeting with his children to revisit this in the future. Regarding healthcare agent: Patient is a bit vague but does mention that Nataliia is the person to make decisions. Son Evin says that he is the one to make decisions. I will need to review his advance directive. If he previously stated that he wanted Nataliia to be his healthcare agent, I think we need to talk to him again once he is well enough to be outside of the ICU (without Evin present) to clarify this. We will set up appointment for family meeting with patient and his children in 1 to 2 weeks to further explore goals of care and advance directives. We can follow-up on pain management at that time as well. (3) CHF (congestive heart failure): Status: Chronic (4) Bacteremia due to Gram-negative bacteria: Status: Acute (5) Uncontrolled type 2 diabetes mellitus with chronic kidney disease: Status: Chronic (6) Cellulitis of left leg: Status: Acute (7) Chronic pain: Status: Chronic Assessment and plan: Patient currently with acute on chronic pain. He is reporting some relief from oral as well as parenteral opioids. Prior to admission he was receiving acetaminophen and Celebrex only. Cymbalta may also be have been used as adjunct of therapy. Suggest addressing acute pain from cellulitis with as needed pain medication for now. Once he is outside of the unit, if using 3 or more doses a day, could consider adding on a long-acting opiate such as fentanyl patch. Once he is out of the intensive care unit and acute pain has subsided, could consider trial of adding gabapentin starting at low dose (100mg BID, with maximum daily dose 600g a day). If this last snot seem to help, discontinue. PFSH All Active Problems (Updated 11/19/22 @ 12:09 by Mari Mcdonald MD) Chronic pain (Chronic) Advanced care planning/counseling discussion (Acute) Palliative care encounter (Acute) Depression due to physical illness (Acute) DVT prophylaxis (Acute) Ventricular bigeminy (Acute) Hypotension (Acute) Right ventricular dilation (Acute) Elevated troponin (Acute) Anemia (Chronic) Leukocytosis (Acute) CHF (congestive heart failure) (Chronic) Bacteremia due to Gram-negative bacteria (Acute) Bradycardia (Acute) Venous insufficiency (Acute) Chronic kidney disease (CKD) (Chronic) Chronic pain of right wrist (Acute) 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) ELVIRA (acute kidney injury) (Acute) Acute uremia (Acute) Cellulitis of left leg (Acute) Medical History Chronic kidney disease (CKD) GERD (gastroesophageal reflux disease) Hyperlipemia Major depression Osteoarthritis Other retention of urine UTI (urinary tract infection) Venous insufficiency Social History Smoking/Tobacco Use Status: Former Tobacco Use Smoking risk assessment performed?: Yes Alcohol Intake: current Alcohol Intake frequency: holidays/special occasions only Substance use type: does not use Housing: detention Do you feel safe at home: Yes Do you feel safe in your relationship?: Yes Exam Narrative Exam Narrative: Restless and uncomfortable. Frequently request change in position of hospital bed. Able to talk in complete sentences. Seems somewhat frustrated with having to answer questions, (not a lot of sleep last night as transferred into ICU). Slightly flushed. Able to drink liquids on his own. No cough and no obvious dyspnea. Results Last Vital Signs Temp 36.4 C L 11/19/22 05:42 Pulse 63 11/19/22 05:42 Resp 13 11/19/22 05:42 BP 135/63 11/19/22 05:42 Pulse Ox 96 11/19/22 05:42 Labs 11/19/22 07:47 11/19/22 07:47 Labs: Laboratory Results - last 24 hr 11/18/22 11/18/22 11/18/22 23:32 23:32 23:34 VBG Lactate 0.7 Troponin I 67 H* NT-Pro-B Natriuret Pep Procalcitonin 0.2 11/19/22 06:11 VBG Lactate Troponin I NT-Pro-B Natriuret Pep 64012 H Procalcitonin
[2022-11-19 08:35] LABS: Abs Immature Grans 0.75 10^3/uL (0.0-0.06); BE (Venous) 2 mmol/L (-2-3); HCO3 (Venous) 29 mmol/L (23-28); HCT 25.8 % (40.0-50.0); MCH 28.7 pg (27.0-33.0); MCV 93 fL (80-95); MPV 9.1 fL (8.0-11.0); O2 Sat (Venous) 90 %; Platelet Count 372 10^3/uL (130-400); RBC 2.79 10^6/uL (4.36-5.78); RDW-SD 47.5 fL; TCO2 (Venous) 29 mmol/L (24-29); WBC 12.87 10^3/uL (4.4-10.8); pH (Venous) 7.26 (7.31-7.41); pO2 (Venous) 63 mmHg
[2022-11-19 08:40] LABS: pCO2 (Venous) 65 mmHg (41-51)
[2022-11-19] MEDS: HYDROmorphone 2 MG/ML SYR 1 MG IVP (08:41)
[2022-11-19 08:54] LABS: ALT 39 U/L (16-63); AST 42 U/L (15-37); Alkaline Phosphatase 112 U/L (46-116); Anion Gap 4.3 mmol/L (3-11); BUN 69 mg/dL (7-18); Bilirubin, Total 0.4 mg/dL (0.2-1.0); CO2 30.7 mmol/L (21.0-32.0); CREATININE 1.9 mg/dL (0.70-1.30); Calcium 9.1 mg/dL (8.5-10.1); Chloride 99 mmol/L (98-107); Estimated GFR 36.56 (mL/min/1.73m2); Glucose 149 mg/dL (74-106); Potassium 5.7 mmol/L (3.5-5.1); Sodium 134 mmol/L (136-145)
[2022-11-19 09:05] LABS: Hypochromasia 1+; Lab Add On Test DONE
--- NOTE | 2022-11-19 09:13 | W.POCUS ---
Pocus Exam Limited Thoracic Lung Exam DATE OF EXAM: 11/19/22 TIME OF EXAM: 08:12 PROVIDER THAT PERFORMED THE STUDY: Neftaly Peng IS THIS A REPEAT EXAM DURING THIS ENCOUNTER: No REASON FOR EXAM: Hypoxia and Shortness ofBreath VISUALIZED STRUCTURES: right anterior, left anterior, right lateral, left lateral, right posterior, left posterior, right subcostal and left subcostal PERTINENT FINDINGS/IMPRESSION: B-lines/left side thoracis location: anterior, lateral and posterior and B-lines/right side thoracis location: anterior, lateral and posterior; no pleural effusion on the left and no pleural effusion on the right INCIDENTAL FINDINGS: limited views were also obtained from subxiphoid views of heart and IVC; patient has dilated IVC w/ less than 50% inspiratory collapsability Exam complete
[2022-11-19 09:25] LABS: Troponin I < 50 ng/L (<or=60)
[2022-11-19 09:27] LABS: Bilirubin Negative (Negative); Blood Small (Negative); Clarity Clear (Clear); Glucose Negative (Negative); Ketones Negative (Negative); Leukocyte Esterase Negative (Negative); Nitrite Negative (Negative); Urobilinogen 0.2 mg/dL (Up to 0.2)
[2022-11-19] MEDS: Budesonide/Formoterol 160/4.5 6 GM 60 PUFF INH IH (09:37)
[2022-11-19 09:43] LABS: Bacteria Moderate HPF (Negative); C & S Indicated? C&S Done As Ordered; Casts Negative LPF (Negative); Crystals Negative HPF (Negative); Epithelial Cells Rare HPF (Negative); Mucus Trace (Negative); Other Cells Negative (Negative)
--- NOTE | 2022-11-19 10:01 | CMPROGNOTE_ITS ---
Date of service: 11/19/22 Time of Service: 10:01 Care Management Progress Note Progress Note Text Progress Note Text: S/O: Shivam is scheduled to meet with Palliative Care today, no change to overall plan, CM continues to follow. A: Shivam is a 72 year old man admitted on 11/15/22 from [facility] with cellulitis and ELVIRA P?Shivam will return to [facility] when medically cleared by provider.? He will follow up with his PCP and plan of care as prescribed.? He will be transported back to the [facility] via facility van when ready.? CM will continue to follow.
[2022-11-19] MEDS: Omeprazole 20 MG CAPCR PO (10:38)
[2022-11-19] MEDS: Finasteride 5 MG TAB PO (10:39)
[2022-11-19] MEDS: Magnesium Chloride 64 MG TABCR 128 MG PO (10:39)
[2022-11-19] MEDS: Vitamins B Comp w/C TAB 1 TAB PO (10:39)
[2022-11-19] MEDS: ALPRAZolam 0.5 MG TAB PO (10:39)
[2022-11-19] MEDS: Benzonatate 200 MG CAP PO ×3 (10:39→20:31)
[2022-11-19] MEDS: DULoxetine 30 MG CAP 60 MG PO (10:39)
[2022-11-19] MEDS: Docusate Sodium 100 MG CAP PO (10:40)
[2022-11-19] MEDS: guaiFENesin 600 MG TABCR PO ×2 (10:40→20:31)
[2022-11-19] MEDS: Ascorbic Acid 500 MG TAB PO ×2 (10:40→20:31)
[2022-11-19] MEDS: Ferrous Sulfate 325 MG TAB PO (10:41)
[2022-11-19] MEDS: Acetaminophen 325 MG TAB 650 MG PO ×3 (10:41→20:30)
[2022-11-19] MEDS: Lachydrin 12% LOTION 225 GM BTL TP ×2 (10:44→20:33)
[2022-11-19] MEDS: Nystatin POWDER 60 GM JAR TP ×3 (10:45→20:29)
[2022-11-19 12:08] LABS: Absolute Neutrophil Count 10.68 10^3/uL (1.2-6.7); Bands % 1
[2022-11-19 12:10] LABS: Absolute Lymphocyte Count 1.03 10^3/uL (1.2-3.4); Atypical Lymphocytes % 0
[2022-11-19 12:11] LABS: Absolute Monocyte Count 0.77 10^3/uL (0.1-0.8)
[2022-11-19 12:15] LABS: Metamyelocytes % 2; Myelocytes % 1
[2022-11-19 12:16] LABS: Diff Comment Manual Differential
[2022-11-19] MEDS: Insulin Aspart 300 UNITS/3 ML PEN SC (12:16)
[2022-11-19] MEDS: Normal Saline 500 ML IV (15:58)
[2022-11-19] MEDS: Normal Saline Flush 10 ML SYR IVP (16:05)
[2022-11-19] MEDS: Diclofenac 1% Gel 100 GM TUBE TP ×2 (16:36→20:29)
--- NOTE | 2022-11-19 17:00 | INDS_ITS ---
PT Notes Visit Reasons: Cellulitis,ELVIRA with CKD Physical Therapy Inpatient Discharge Summary Date: 11/19/2022 Dates of service: 11/16/2022 through 11/19/2022 This is a clinical summary of care provided for the duration of dates listed above. No charge was made in the completion of this documentation. Referring Doctor:? Sherita Fuentes NP PT Orders: PT CONSULT: Eval/treat Precautions: Fall.??Contact precautions in place. Activity as tolerated. Patient Profile/Admitting Diagnosis:? Diet is a 72-year-old male who presented to the ED from the [facility]hab due to worsening left leg pain, redness, and swelling.? Patient is admitted for management of cellulitis of left leg, acute kidney injury, chronic kidney disease, venous insufficiency, and uncontrolled type 2 diabetes mellitus. 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 Chronic kidney disease (CKD) GERD (gastroesophageal reflux disease) Hyperlipemia Major depression Osteoarthritis Other retention of urine UTI (urinary tract infection) Venous insufficiency Social History/Home Situation: Has been a resident of SNF for the past 6 months now.? Able to walk at least 30 feet using front wheeled walker in the hallway of SNF.? Equipment Owned/DME: W/C,? FWW Subjective: NT. See most recent CHEMICAL OPERATOR notes. Objective: General Observation: NT. See most recent CHEMICAL OPERATOR notes. Mental Status: NT. See most recent CHEMICAL OPERATOR notes. Pain: NT. See most recent CHEMICAL OPERATOR notes. Vital Signs: NT. See most recent CHEMICAL OPERATOR notes. ROM: Right Upper Extremity: ? Shoulder Flexion WFL. Shoulder abduction WFL. Elbow flexion WFL. Wrist flexion WFL. Functional opening and closing of hand WFL. Left Upper Extremity:? Shoulder Flexion WFL. Shoulder abduction WFL. Elbow flexion WFL. Wrist flexion WFL. Functional opening and closing of hand WFL. Right Lower Extremity: Hip flexion lacks the last 50% of AROM. Hip abduction lacks the last 50% of AROM. Knee flexion 45 to 90 degrees. Ankle dorsiflexion has less than 25% of available AROM. Ankle plantarflexion has less than 25% of available AROM. Left Lower Extremity: Hip flexion lacks the last 50% of AROM. Hip abduction lacks the last 50% of AROM. Knee flexion 45 to 90 degrees. Ankle dorsiflexion has less than 25% of available AROM. Ankle plantarflexion has less than 25% of available AROM. Strength: Right Upper Extremity: Shoulder flexors 4-/5. Shoulder abductors 4-/5. Elbow flexors 4-/5. Elbow extensors 4-/5. Sign Painter strong. Left Upper Extremity: Shoulder flexors 4-/5. Shoulder abductors 4-/5. Elbow flexors 4-/5. Elbow extensors 4-/5. Sign Painter strong. Right Lower Extremity: Hip flexors 2-/5. Hip abductors 2-/5. Knee flexors 2-/5. Knee extensors 2-/5. Ankle dorsiflexors 2-/5. Ankle plantarflexors 2-/5. Left Lower Extremity: Hip flexors 2-/5. Hip abductors 2-/5. Knee flexors 2-/5. Knee extensors 2-/5. Ankle dorsiflexors 2-/5. Ankle plantarflexors 2-/5. Bed Mobility/Transfers:? TOOLS AND PARTS ATTENDANT Mary Ellen assisted for safety Sit to stand minimal assist of 2,? cues for hand placement needed Stand to sit minimal assist of 2,? cues for hand placement needed Bed to reclining chair minimal assist of 2,? cues for hand placement needed Reclining chair to bed minimal assist of 2,? cues for hand placement needed Gait: Only tolerated 4 small steps to transfer from chair to bedside recliner using FWW with report of pain at 10/10 and significant shortness of breath. Balance: Static Sitting: Normal Dynamic Sitting: Normal Static Standing: Fair Dynamic Standing: Poor ASSESSMENT: Needed ICU level of care due to cardiac event on 11/19/22. Mobility performance currently significantly limited by pain level in bilateral legs.? Patient is agreeable to working with PT with his pain more managed as pain level increases his anxiety and limits his ability to do more.? Will coordinate with nurse for premedication for pain to maximize functional mobility progression.? COPD,? high BMI,? and pain level all limit mobility goals at this time.? Will plan to regain prior level of function of supervision assist with FWW for at least 30 feet using FWW while pain and antibiotic management is ongoing. Patient presents with clinical signs and symptoms consistent with current/admitting diagnoses that have resulted to mobility limitations, gait instability, generalized weakness, and overall ADL decline as demonstrated by the following impairment level findings: 1.? Decreased strength to B UE/LE major muscle groups 2.? Impaired sitting/standing balance 3.? Impaired activity tolerance 4.? Limitation of joint range of motion in B LE joints 5.? Shortness of breath 6.? Swelling in B LE with L<<R leg and foot Impairments are contributing to the following functional limitations: 1.? Decline in bed mobility skills 2.? Decline in transfer skills 3.? Difficulty with ambulation without assistive device and physical assistance 4.? Increased completion time for mobility ADL performance 5.? Increased risk for falls 6.? Difficulty with managing steps alone safely Goals: Goals X1 week 1. Supine-Sit independent NOT MET, CONTINUE UPON RESUMPTION OF PT SERVICES 2. Sit-Supine independent NOT MET, CONTINUE UPON RESUMPTION OF PT SERVICES 3. Sit-Stand independent NOT MET, CONTINUE UPON RESUMPTION OF PT SERVICES 4. Stand-Sit independent with FWW NOT MET, CONTINUE UPON RESUMPTION OF PT SERVICES 5. Bed-Chair independent with FWW NOT MET, CONTINUE UPON RESUMPTION OF PT SERVICES 6. Chair-Bed independent with FWW NOT MET, CONTINUE UPON RESUMPTION OF PT SERVICES 7.? Supervision gait on level surface with use of bariatrc walker for at least 30 feet without report of pain nor dyspnea NOT MET, CONTINUE UPON RESUMPTION OF PT SERVICES 8. Good static and dynamic standing balance/tolerance NOT MET, CONTINUE UPON RESUMPTION OF PT SERVICES Plan of Care/Treatment Plan: 1-2x/day, 7 days/week x 1 week. Plan of care has been reviewed with the CHEMICAL OPERATOR providing the service under Physical Therapy direction. Initiate Physical Therapy intervention for pain management as needed, strengthening, bed mobility, transfers, gait, stairs, balance training, and use of assistive device. DISCHARGE RECOMMENDATIONS: [] ? Home with no services [] [] ? Home with services [specify] [] ? Home with outpatient PT [] [] ? SNF for continued rehabilitation [] [] ? [facility] [] [] ? SNF versus LTC based on ability to participate and progress [] [X] PT re-evaluation once a new referral is received. TREATMENT CODE/TIME: NC Thank you for the opportunity to participate in the care of this patient. Riri Lubin PT, DPT, CLT [facility] [place], [place]
[2022-11-19] MEDS: Triamcinolone 0.1% CR 15 GM TUBE TP (20:29)
[2022-11-19] MEDS: traMADol 50 MG TAB PO (20:30)
[2022-11-19] MEDS: Atorvastatin 40 MG TAB 80 MG PO (20:30)
[2022-11-19] MEDS: Methocarbamol 750 MG TAB PO (22:14)
[2022-11-20] VITALS (79 sets, daily range): BP systolic 110–139; BP diastolic 40–69; PULSE 67–87; RESP 1–26; TEMP 36–37.1; O2SAT 90–96
[2022-11-20] MEDS: Normal Saline Flush 10 ML SYR IVP ×3 (00:13→17:43)
[2022-11-20] MEDS: traMADol 50 MG TAB PO ×2 (03:04→22:57)
[2022-11-20] MEDS: IMIPENEM/CILASTATIN 500 MG in Normal Saline 100 ML 200 MG IVPB ×4 (03:05→22:03)
[2022-11-20] MEDS: HYDROmorphone 2 MG/ML SYR 1 MG IVP ×2 (04:42→10:19)
[2022-11-20] MEDS: oxyCODONE 5 MG TAB PO ×2 (05:56→20:59)
[2022-11-20 07:02] LABS: HCT 25.6 % (40.0-50.0); HGB 7.9 g/dL (13.5-17.5); MCH 28.1 pg (27.0-33.0); MCHC 30.9 % (32.0-36.0); MCV 91 fL (80-95); MPV 9.2 fL (8.0-11.0); Platelet Count 436 10^3/uL (130-400); RBC 2.81 10^6/uL (4.36-5.78); RDW 13.8 % (11.8-14.1); RDW-SD 46.2 fL; WBC 13.83 10^3/uL (4.4-10.8)
[2022-11-20 07:29] LABS: ALT 31 U/L (16-63); AST 35 U/L (15-37); Albumin 1.8 g/dL (3.4-5.0); Alkaline Phosphatase 99 U/L (46-116); Anion Gap 6.1 mmol/L (3-11); BUN 63 mg/dL (7-18); Bilirubin, Total 0.3 mg/dL (0.2-1.0); CO2 33.9 mmol/L (21.0-32.0); CREATININE 1.7 mg/dL (0.70-1.30); Calcium 8.7 mg/dL (8.5-10.1); Chloride 99 mmol/L (98-107); Estimated GFR 41.78 (mL/min/1.73m2); Glucose 112 mg/dL (74-106); Magnesium 1.6 mg/dL (1.8-2.4); Potassium 4.3 mmol/L (3.5-5.1); Sodium 139 mmol/L (136-145); Total Protein 6.5 g/dL (6.4-8.2)
[2022-11-20 07:40] LABS: Absolute Eosinophil Count 0.28 10^3/uL (0.0-0.7); Absolute Lymphocyte Count 1.11 10^3/uL (1.2-3.4); Absolute Monocyte Count 1.38 10^3/uL (0.1-0.8); Absolute Neutrophil Count 10.51 10^3/uL (1.2-6.7); Bands % 1
[2022-11-20 07:41] LABS: Diff Comment Manual Differential; Hypochromasia 1+; Metamyelocytes % 4; Polychromasia Present
[2022-11-20] MEDS: Budesonide/Formoterol 160/4.5 6 GM 60 PUFF INH IH ×2 (08:01→21:00)
--- NOTE | 2022-11-20 08:07 | NUR.NOTE ---
Patient set up with breakfast tray and begins to feed himself.Nursing Note:
[2022-11-20] MEDS: Acetaminophen 325 MG TAB 650 MG PO ×4 (08:34→20:59)
[2022-11-20] MEDS: Methocarbamol 750 MG TAB PO ×4 (08:35→20:59)
[2022-11-20] MEDS: Tamsulosin 0.4 MG CAPCR 0.8 MG PO (08:37)
[2022-11-20] MEDS: Magnesium Chloride 64 MG TABCR 128 MG PO (08:37)
[2022-11-20] MEDS: ALPRAZolam 0.5 MG TAB PO (08:37)
[2022-11-20] MEDS: Omeprazole 20 MG CAPCR PO (08:42)
[2022-11-20] MEDS: Heparin 5,000 UNITS/ML VIAL 5000 UNITS SC ×2 (08:42→16:12)
[2022-11-20] MEDS: Polyethylene Glycol 3350 17 GM PACKET PO (08:52)
[2022-11-20] MEDS: Benzonatate 200 MG CAP PO ×3 (08:52→20:59)
[2022-11-20] MEDS: DULoxetine 30 MG CAP 60 MG PO (08:52)
[2022-11-20] MEDS: Ferrous Sulfate 325 MG TAB PO (08:52)
--- NOTE | 2022-11-20 08:54 | CMPROGNOTE_ITS ---
Date of service: 11/20/22 Time of Service: 08:55 Care Management Progress Note Progress Note Text Progress Note Text: S/O: Shivam was sitting up in a chair in the ICU when CM met with him. He described being in terrible pain and CM informed the provider. The provider ordered a one time dose of Hydromorphone 2mg IV and also a lidocaine patch to his buttocks where the pain was centralized. CM returned after Shivam had been medicated and he was sound asleep. Shivam met with Palliative Care yesterday for quite some time. Goals of care were discussed and Shivam has opted to remain a full code at this time. He apparently has advanced directives but it is unclear who his healthcare agent is. A follow up palliative care visit is planned after discharge and will address his advanced directives as well as his HCA. A: Shivam is a 72 year old man admitted on 11/15/22 from [facility] with cellulitis and ELVIRA P?Shivam will return to [facility] when medically cleared by provider.? He will follow up with his PCP and plan of care as prescribed.? He will be transported back to the [facility] via facility van when ready.? CM will continue to follow. cc:
[2022-11-20] MEDS: Ascorbic Acid 500 MG TAB PO ×2 (08:55→20:59)
[2022-11-20] MEDS: Vitamins B Comp w/C TAB 1 TAB PO (08:55)
[2022-11-20] MEDS: guaiFENesin 600 MG TABCR PO ×2 (08:55→20:59)
[2022-11-20] MEDS: Finasteride 5 MG TAB PO (09:15)
[2022-11-20] MEDS: Docusate Sodium 100 MG CAP PO (09:15)
[2022-11-20] MEDS: Diclofenac 1% Gel 100 GM TUBE TP ×2 (09:23→16:47)
[2022-11-20] MEDS: Lachydrin 12% LOTION 225 GM BTL TP ×2 (10:36→17:41)
--- NOTE | 2022-11-20 10:49 | IN_ITS ---
Date of service: 11/20/22 Time of Service: 10:14 PT Notes Visit Reasons: Cellulitis,ELVIRA with CKD Physical Therapy Inpatient Initial Evaluation Date: 11/20/2022 Referring Doctor:? Isaias Hathaway MD PT Orders: PT CONSULT: Eval/treat Precautions: Fall.??Contact precautions in place. Activity as tolerated. Patient Profile/Admitting Diagnosis:? Shivam is a 72-year-old male who presented to the ED from the [facility] due to worsening left leg pain, redness, and swelling.? Patient is admitted for management of cellulitis of left leg, acute kidney injury, chronic kidney disease, venous insufficiency, and uncontrolled type 2 diabetes mellitus. he need ICU level of care on 11/19/2022 due to caridac event and is back to Med surg level of care. Re-evalaution for PT was made for continued rehabilitation of functional deficits below. 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 Chronic kidney disease (CKD) GERD (gastroesophageal reflux disease) Hyperlipemia Major depression Osteoarthritis Other retention of urine UTI (urinary tract infection) Venous insufficiency Social History/Home Situation: Has been a resident of SNF for the past 6 months now.? Able to walk at least 30 feet using front wheeled walker in the hallway of SNF.? Equipment Owned/DME: W/C,? FWW Subjective: In extreme pain and moaning despite pain medication earlier today by Nurse Stack. Finally calmed down and reported pain resolution with IV administration of Dilaudid by Nurse Stack during PT session. ? Objective: General Observation: Seated on a regular chair.? On chronic oxygen supplementation, 2 L/min via NC.? IV through left brachium.? High BMI.? Considerable Erythema, swelling to left leg and left foot.? Significant lymphorrhea noted.? LISA wraps to R leg and foot.? Camel's hump on L dorsum of foot due to swelling.? Scrotal edema noted. Mental Status: Alert and oriented as to person, place, time, and purpose. Able to pay attention, focus, and respond appropriately. Pain: 10/10 with movement and weight bearing on the L buttock and back Vital Signs: WNL as closley monitored by ursing staff.? Oxygen saturation at 92% on 2 L/minute duirng attempts at standing ROM: Right Upper Extremity: ? Shoulder Flexion WFL. Shoulder abduction WFL. Elbow flexion WFL. Wrist flexion WFL. Functional opening and closing of hand WFL. Left Upper Extremity:? Shoulder Flexion WFL. Shoulder abduction WFL. Elbow flexion WFL. Wrist flexion WFL. Functional opening and closing of hand WFL. Right Lower Extremity: Hip flexion lacks the last 50% of AROM. Hip abduction lac ks the last 50% of AROM. Knee flexion 45 to 90 degrees. Ankle dorsiflexion has less than 25% of available AROM. Ankle plantarflexion has less than 25% of available AROM. Left Lower Extremity: Hip flexion lacks the last 50% of AROM. Hip abduction lacks the last 50% of AROM. Knee flexion 45 to 90 degrees. Ankle dorsiflexion has less than 25% of available AROM. Ankle plantarflexion has less than 25% of available AROM. Strength: Right Upper Extremity: Shoulder flexors 4-/5. Shoulder abductors 4-/5. Elbow flexors 4-/5. Elbow extensors 4-/5. Waistband Setter Lockstitch strong. Left Upper Extremity: Shoulder flexors 4-/5. Shoulder abductors 4-/5. Elbow flexors 4-/5. Elbow extensors 4-/5. Waistband Setter Lockstitch strong. Right Lower Extremity: Hip flexors 2-/5. Hip abductors 2-/5. Knee flexors 2-/5. Knee extensors 2-/5. Ankle dorsiflexors 2-/5. Ankle plantarflexors 2-/5. Left Lower Extremity: Hip flexors 2-/5. Hip abductors 2-/5. Knee flexors 2-/5. Knee extensors 2-/5. Ankle dorsiflexors 2-/5. Ankle plantarflexors 2-/5. Bed Mobility/Transfers:? Sit to stand minimal assist of 2,? cues for hand placement needed Stand to sit minimal assist of 2,? cues for hand placement needed Bed to reclining chair minimal assist of 2,? cues for hand placement needed Reclining chair to bed minimal assist of 2,? cues for hand placement needed Gait: Only tolerated 4 small steps to transfer from chair to bedside recliner using FWW with Nurse Stack early this morning. Reported pain at 10/10 and significant shortness of breath. THERA EX: Training and education provided on therapeutic exercises to develop strength, endurance, range of motion and flexibility of B LE joints/muscles: Toe curls on B sides x 10 in supine Deep breathing exercises x 3 Ankle DF/PF x 10 in supine Deep breathing exercises x 3 Hip IR on B sides x 10 Deep breathing exercises x 3 Chair positioning: Facilitated slow recline on bariatric bedside recliner to allow for B LE elevation while minimizing L buttock and lateral hip pain after intake of Dilaudid. Balance: Static Sitting: Normal Dynamic Sitting: Normal Static Standing: Fair Dynamic Standing: Poor Special Tests: Mobility Limitations Standardized Measure [facility] AM-PAC 6 clicks Basic Mobility Inpatient Short Form: Raw Score: ?12? CMS Score: 69% deficit? ? ? Informed Consent/Education:? Patient was instructed in purpose of PT consult and plan of care. Agreeable to proceed with established PT POC to achieve personal goals. ASSESSMENT: Converts back to [facility] level of care as of 11/20/2022. Fell on 11/17/during morning transfer with nursing staff. Today has complaints of L buttock and L lateral hip pain that is tender to palpation suggestive of piriformis syndrome however does not report pain radiation to the L thigh and leg. Non responsive to pain pilss given by Nurse Stack earlier but did found relief with administration of IV Dilaudid by Nurse Stack during PT session. Mobility performance currently significantly limited by pain level in bilateral legs.? Home figueroa is agreeable to working with PT with his pain more managed as pain level increases his anxiety and limits his ability to do more.? Will coordinate with nurse for premedication for pain to maximize functional mobility progression.? COPD,? high BMI,? and pain level all limit mobility goals at this time.? Will plan to regain prior level of function of stand by assist with FWW for at least 30 feet using FWW while pain and antibiotic management is ongoing. Patient presents with clinical signs and symptoms consistent with current/admitting diagnoses that have resulted to mobility limitations, gait instability, generalized weakness, and overall ADL decline as demonstrated by the following impairment level findings: 1.? Decreased strength to B UE/LE major muscle groups 2.? Impaired sitting/standing balance 3.? Impaired activity tolerance 4.? Limitation of joint range of motion in B LE joints 5.? Shortness of breath 6.? Swelling in B LE with L<<R leg and foot (now diminishing) Impairments are contributing to the following functional limitations: 1.? Decline in bed mobility skills 2.? Decline in transfer skills 3.? Difficulty with ambulation without assistive device and physical assistance 4.? Increased completion time for mobility ADL performance 5.? Increased risk for falls 6.? Difficulty with managing steps alone safely Patient is assessed as a [id number] moderate complexity based on the following: History: 72-year-old male with past medical history as indicated above Examination: Demonstrable impairment in strength, balance, and mobility level with underlying impairments and functional limitations as exhibited above as well as deficit score of 69% utilizing the [facility] Mobility Inpatient Short Form Presentation: Evolving Decision Makin moderate complexity Goals: Goals X1 week 1. Supine-Sit independent 2. Sit-Supine independent 3. Sit-Stand independent 4. Stand-Sit stand by assist with FWW 5. Bed-Chair stand by assist with FWW 6. Chair-Bed stand by assist with FWW 7.?Stand by assist with gait on level surface with use of bariatric FWW for at least 30 feet without report of pain nor dyspnea 8. Fair static and dynamic standing balance/tolerance Plan of Care/Treatment Plan: 1-2x/day, 7 days/week x 1 week. Plan of care has been reviewed with the STROBOROMA OPERATOR providing the service under Physical Therapy direction. Initiate Physical Therapy intervention for pain management as needed, strengthening, bed mobility, transfers, gait, stairs, balance training, and use of assistive device. DISCHARGE RECOMMENDATIONS: [] ? Home with no services [] [] ? Home with services [specify] [] ? Home with outpatient PT [] [] ? SNF for continued rehabilitation [] [] ? [facility] [] [] ? SNF versus LTC based on ability to participate and progress [] [X] Return to SNF when medically cleared by hospitalist.? Patient will benefit from care home facility placement for continued skilled physical therapy services in order to progress mobility level, strength, and balance. TREATMENT CODE/TIME: 79883 x 26 minutes (1 unit) beginning at 10:14 AM. Thank you for the opportunity to participate in the care of this patient. Riri Lubin PT, DPT, CLT [facility] [place], [place]
[2022-11-20] MEDS: Lidocaine 5% Patch 1 PATCH TP (11:02)
[2022-11-20] MEDS: Triamcinolone 0.1% CR 15 GM TUBE TP (11:03)
[2022-11-20] MEDS: Nystatin POWDER 60 GM JAR TP (11:04)
[2022-11-20] MEDS: Insulin Aspart 300 UNITS/3 ML PEN SC ×3 (12:00→22:02)
[2022-11-20] MEDS: HYDROmorphone 2 MG/ML SYR IVP (13:21)
[2022-11-20] MEDS: Magnesium Oxide 400 MG TAB 800 MG PO ×2 (16:11→21:00)
[2022-11-20] MEDS: Torsemide 20 MG TAB 40 MG PO (16:11)
--- NOTE | 2022-11-20 16:43 | PT.INTREAT ---
Date of service: 11/20/22 Time of Service: 16:10 PT Notes Visit Reasons: Cellulitis,ELVIRA with CKD Inpatient Physical Therapy Treatment Note [facility] Date: 11/20/22 PRECAUTIONS: Fall, standard, activity as tolerated. SUBJECTIVE: Patient more alert now than he was an hour ago. Reports back pain. OBJECTIVE: Sitting up in recliner. Wants to go to bed, however wishes he did not have to get there himself. Would prefer to use a dependent lift. Eventually agreeable to try anyway. ? PAIN: 10/10 in standing based on patients vocalizations. VITALS: monitored by nursing staff. ? Therapeutic Activities ([id number]): Direct one-on-one instruction in dynamic activities to improve functional performance. ? BED MOBILITY/TRANSFERS? Rolling L/R: mod assist Supine-sit: max assist ? Sit-supine: dependent (max of 2) ? Sit-stand: max of 2 ? Stand-sit: mod of 2 ? Bed-Chair: mod of 2 ? Chair-bed: mod of 2 Provided skilled cues and instruction on performance and technique throughout. ASSESSMENT:? Patient continues to require skilled therapy services for management of pain from piriformis syndrome, strengthening, endurance training, and gait/mobility training. PLAN: Continue global treatment per plan of care until patient is medically ready to return to the SNF at which he resides. TREATMENT CODE/TIME: 83873 Ther Act 15 minutes beginning at 16:10
[2022-11-20] MEDS: Normal Saline 500 ML IV (16:45)
--- NOTE | 2022-11-20 17:40 | W.PM.PROGNOT ---
Date of Service Date of service: 11/20/22 Time of Service: 17:40 Assessment and Plan Assessment and plan (1) Bacteremia due to Gram-negative bacteria: Status: Acute Assessment and plan: Blood culture growing achromobacter xylosocidans; sensitive to meropenem. Patient is currently on meropenem he did get a dose of tobramycin upon initial admission. Now avoiding further aminoglycosides in this patient with chronic kidney disease. Stable BP. Afebrile. WBC count continues to be mildly elevated. (2) Cellulitis of left leg: Status: Acute Assessment and plan: Continue wound care nurses recommendations continue antibiotics as listed above. Improvement seen. (3) CHF (congestive heart failure): Status: Chronic Assessment and plan: [id number] ultrasound performed with Dr. Messina; appears to have normal LV function however she was only able to obtain limited windows and therefore could not assess for regional wall motion abnormalities. Formal echocardiogram:Technically limited and suboptimal study Left ventricle appears grossly normal in size wall thickness and systolic function. Right atrium and right ventricle are dilated Left atrial size is normal No structural valvular disease is identified The aortic root and ascending aorta are mildly dilated The RVSP is 15.6 mmHg. He has diuresed very well on lasix drip. Lasix drip stopped. Torsemide initiated at 40mg BID (4) Right ventricular dilation: Status: Acute Assessment and plan: Likely cor pulmonale secondary to obstructive sleep apnea which has been untreated. (5) Elevated troponin: Status: Acute Assessment and plan: Likely demand ischemia: 67 > then < 50. (6) Bradycardia: Status: Acute Assessment and plan: Resolved. Continue monitoring (7) Ventricular bigeminy: Status: Acute Assessment and plan: Continues to exhibit intermittent ventricular bigeminy. Continue monitoring replete any electrolyte abnormalities (8) Hypotension: Status: Acute Assessment and plan: Transient hypotension was probably related to his bradycardia arrhythmia and ventricular ectopy. Continue to monitor on telemetry. Patient was formally transferred to the intensive care unit for close monitoring but now transitioned back to med-surg status. (9) Chronic kidney disease (CKD): Status: Chronic Assessment and plan: . Avoid NSAIDs and any nephrotoxic drugs such as aminoglycosides. Continue to monitor his renal function as we diurese him. Creatinine improved to 1.7. (10) Anemia: Status: Chronic Assessment and plan: Monitoring anemia and proceed with work-up including checking B12 folate iron studies. (11) Venous insufficiency: Status: Acute Assessment and plan: Patient needs to elevate his legs in addition to receiving diuretics. (12) ELVIRA (acute kidney injury): Status: Acute Assessment and plan: Renal functions improving his creatinine is now down to his baseline of 1.9. Continue to monitor. (13) DVT prophylaxis: Status: Acute Assessment and plan: Patient is on subcutaneous heparin Subjective Subjective Patient reports: afebrile; denies nausea, vomiting or shortness of breath Interval history since last seen: Pain in left buttock. He notes that his leg edema has improved. Exam Narrative Exam Narrative: Morbidly obese white sitting in chair. Intermittently complaining of intense pain in the left buttock. HEENT neck veins are difficult to discern as they are obese short neck Lungs with diffuse expiratory wheezes anteriorly and posteriorly Heart is regular with frequent ectopic beats review of telemetry shows he is in sinus rhythm with frequent PVCs including ventricular bigeminy and trigeminy. Abdomen obese soft and nontender Lower extremities left leg with dusky erythema from the foot and ankle up to the mid tibia is tender. 2+ pitting edema of his left leg and 1+ pitting edema of his right leg. Neuro exam grossly intact no focal motor deficits normal speech no focal cranial nerve deficits. Objective Last Vital Signs Temp 36.7 C 11/20/22 13:31 Pulse 85 11/20/22 13:31 Resp 18 11/20/22 13:31 BP 110/58 L 11/20/22 13:31 Pulse Ox 93 11/20/22 13:31 Laboratory Results - last 24 hr 11/20/22 11/20/22 05:25 05:25 WBC 13.83 H RBC 2.81 L Hgb 7.9 L Hct 25.6 L MCV 91 MCH 28.1 MCHC 30.9 L RDW 13.8 Plt Count 436 H MPV 9.2 Immature Gran % See Differential Neutrophils % 75.0 Band Neutrophils % 1 Lymphocytes % 8.0 Monocytes % 10.0 Eosinophils % 2.0 Basophils % 0.0 Metamyelocytes % 4 Nucleated RBC % 0.0 Absolute Neutrophils 10.51 H Absolute Lymphocytes 1.11 L Absolute Monocytes 1.38 H Absolute Eosinophils 0.28 Absolute Basophils 0.00 RBC Morphology See Below Polychromasia Present Hypochromasia 1+ Sodium 139 Potassium 4.3 D Chloride 99 Carbon Dioxide 33.9 H Anion Gap 6.1 BUN 63 H Creatinine 1.7 H Est GFR (CKD-EPI 2020) 41.78 Glucose 112 H Calcium 8.7 Magnesium 1.6 L Total Bilirubin 0.3 AST 35 ALT 31 Alkaline Phosphatase 99 Total Protein 6.5 Albumin 1.8 L Time Spent with Patient Time Spent with Patient: 35-49 minutes Time was spent: preparing to see the patient(eg.review tests), obtaining and/or reviewing separately otained hiistory, ordering medications,tests, procedures, referring, communicating with other health day care home provider, indepentently interpreting results, counseling the patient and care coordination
[2022-11-20 18:12] LABS: Lab Add On Test DONE
[2022-11-20 18:31] LABS: Iron 31 ug/dL (65-175)
[2022-11-20 18:57] LABS: Vitamin B12 795 pg/mL (193-986)
[2022-11-20] MEDS: Atorvastatin 40 MG TAB 80 MG PO (20:59)
[2022-11-20] MEDS: Albuterol/Ipratropium 3 ML UPD VIAL UPD (21:55)
[2022-11-20] MEDS: Lidocaine Patch Removal 1 EACH TP (22:53)
[2022-11-20] MEDS: Melatonin 3 MG TAB 6 MG PO (22:57)
[2022-11-21] VITALS (14 sets, daily range): BP systolic 123–158; BP diastolic 62–81; PULSE 67–88; RESP 1–16; TEMP 36.2–37.3; O2SAT 90–100
[2022-11-21] MEDS: Heparin 5,000 UNITS/ML VIAL 5000 UNITS SC ×4 (00:15→23:49)
[2022-11-21] MEDS: oxyCODONE 5 MG TAB PO ×4 (03:11→23:05)
[2022-11-21] MEDS: IMIPENEM/CILASTATIN 500 MG in Normal Saline 100 ML 200 MG IVPB ×4 (04:28→23:07)
[2022-11-21 06:57] LABS: Abs Immature Grans 1.05 10^3/uL (0.0-0.06); HGB 8.2 g/dL (13.5-17.5); MCH 28.4 pg (27.0-33.0); MCHC 31.5 % (32.0-36.0); MCV 90 fL (80-95); MPV 9.1 fL (8.0-11.0); Platelet Count 455 10^3/uL (130-400); RBC 2.89 10^6/uL (4.36-5.78); RDW 13.7 % (11.8-14.1); RDW-SD 44.9 fL; WBC 16.63 10^3/uL (4.4-10.8)
[2022-11-21 07:12] LABS: Anion Gap 3.3 mmol/L (3-11); BUN 58 mg/dL (7-18); CO2 37.7 mmol/L (21.0-32.0); CREATININE 1.6 mg/dL (0.70-1.30); Calcium 8.8 mg/dL (8.5-10.1); Chloride 100 mmol/L (98-107); Estimated GFR 44.93 (mL/min/1.73m2); Glucose 131 mg/dL (74-106); Magnesium 1.7 mg/dL (1.8-2.4); Potassium 4.2 mmol/L (3.5-5.1); Sodium 141 mmol/L (136-145)
[2022-11-21] MEDS: Omeprazole 20 MG CAPCR PO (07:43)
[2022-11-21] MEDS: Normal Saline Flush 10 ML SYR IVP (07:48)
[2022-11-21] MEDS: HYDROmorphone 2 MG/ML SYR IVP ×2 (07:48→12:27)
[2022-11-21 07:52] LABS: Absolute Basophil Count 0.17 10^3/uL (0.0-0.2); Absolute Lymphocyte Count 1.16 10^3/uL (1.2-3.4); Absolute Monocyte Count 1.33 10^3/uL (0.1-0.8); Absolute Neutrophil Count 13.14 10^3/uL (1.2-6.7); Bands % 2; Diff Comment Manual Differential; Metamyelocytes % 2
[2022-11-21 07:53] LABS: Hypochromasia 2+; Polychromasia Present
[2022-11-21] MEDS: Budesonide/Formoterol 160/4.5 6 GM 60 PUFF INH IH ×2 (08:17→20:30)
[2022-11-21] MEDS: Lidocaine 5% Patch 1 PATCH TP (09:21)
[2022-11-21] MEDS: DULoxetine 30 MG CAP 60 MG PO (09:22)
[2022-11-21] MEDS: Acetaminophen 325 MG TAB 650 MG PO ×4 (09:22→20:28)
[2022-11-21] MEDS: Magnesium Oxide 400 MG TAB 800 MG PO ×2 (09:23→20:28)
[2022-11-21] MEDS: Tamsulosin 0.4 MG CAPCR 0.8 MG PO (09:28)
[2022-11-21] MEDS: Finasteride 5 MG TAB PO (09:28)
[2022-11-21] MEDS: Docusate Sodium 100 MG CAP PO ×2 (09:28→20:29)
[2022-11-21] MEDS: Vitamins B Comp w/C TAB 1 TAB PO (09:28)
[2022-11-21] MEDS: Torsemide 20 MG TAB 40 MG PO ×2 (09:29→15:58)
[2022-11-21] MEDS: Sulfameth/Trimeth DS TAB 1 TAB PO ×2 (09:29→20:29)
[2022-11-21] MEDS: Benzonatate 200 MG CAP PO ×3 (09:30→20:28)
[2022-11-21] MEDS: ALPRAZolam 0.5 MG TAB PO (09:30)
[2022-11-21] MEDS: Ferrous Sulfate 325 MG TAB PO (09:30)
[2022-11-21] MEDS: Ascorbic Acid 500 MG TAB PO ×2 (09:31→20:29)
[2022-11-21] MEDS: guaiFENesin 600 MG TABCR PO ×2 (09:32→20:29)
[2022-11-21] MEDS: Methocarbamol 750 MG TAB PO ×4 (09:33→20:29)
[2022-11-21] MEDS: Magnesium Chloride 64 MG TABCR 128 MG PO (09:33)
[2022-11-21] MEDS: Nystatin POWDER 60 GM JAR TP ×3 (09:34→20:29)
[2022-11-21] MEDS: Lachydrin 12% LOTION 225 GM BTL TP ×2 (09:34→22:53)
[2022-11-21] MEDS: Triamcinolone 0.1% CR 15 GM TUBE TP (10:07)
[2022-11-21] MEDS: Diclofenac 1% Gel 100 GM TUBE TP ×3 (10:07→20:30)
[2022-11-21] MEDS: Ketorolac 30 MG/ML VIAL IVP (12:35)
[2022-11-21] MEDS: Insulin Aspart 300 UNITS/3 ML PEN SC ×3 (12:36→23:05)
--- NOTE | 2022-11-21 12:56 | PT.INTREAT ---
Date of service: 11/21/22 Time of Service: 12:31 PT Notes Visit Reasons: Cellulitis,ELVIRA with CKD Inpatient Physical Therapy Treatment Note [facility] Date: 11/21/22 PRECAUTIONS: Fall, standard, activity as tolerated. SUBJECTIVE: Patient reports dreading therapy. Wishes he didn't have to get up. States he will be more comfortable in bed and pain is likely to increase the longer he sits up. OBJECTIVE: Sitting up in recliner, agreeable to therapy. ? PAIN: 11/05 VITALS: monitored by nursing staff ? Therapeutic Activities ([id number]): Direct one-on-one instruction in dynamic activities to improve functional performance. ? BED MOBILITY/TRANSFERS? Rolling L/R: Max assist Supine-sit: max assist ? Sit-supine: dependent (max of 2) ? Sit-stand: max of 2 ? Stand-sit: mod assist of 1? Bed-Chair: 5 feet, FWW, mod assist of 2 with verbal cues / encouragement to keep patient calm. ? Chair-bed: mod assist of 2 Provided skilled cues and instruction on performance and technique throughout. ? ASSESSMENT:? Patient continues to report exruciating pain despite being premedicated 30 minutes before treatment. PLAN: Continue global treatment per plan of care as patient tolerates until medically cleared to return to the SNF at which he resides. TREATMENT CODE/TIME: 53162 Ther Act 23 minutes beginning at 12:31
--- NOTE | 2022-11-21 15:27 | PGE_ITS ---
Date of Service Date of service: 11/21/22 Time of Service: 15:27 Assessment and Plan Assessment and plan (1) Bacteremia due to Gram-negative bacteria: Status: Acute Assessment and plan: Blood culture growing achromobacter xylosocidans; sensitive to meropenem. WBC count has increased marginally. Add Bactrim DS BID. Cont meropenem. Stable BP. Afebrile. WBC count continues to be mildly elevated. (2) Cellulitis of left leg: Status: Acute Assessment and plan: Continue wound care nurses recommendations continue antibiotics as listed above. Clinically improved. (3) CHF (congestive heart failure): Status: Chronic Assessment and plan: [id number] ultrasound performed with Dr. Messina; appears to have normal LV function however she was only able to obtain limited windows and therefore could not assess for regional wall motion abnormalities. Formal echocardiogram:Technically limited and suboptimal study Left ventricle appears grossly normal in size wall thickness and systolic function. Right atrium and right ventricle are dilated Left atrial size is normal No structural valvular disease is identified The aortic root and ascending aorta are mildly dilated The RVSP is 15.6 mmHg. He has diuresed very well on lasix drip. Lasix drip stopped. Torsemide initiated at 40mg BID (4) Right ventricular dilation: Status: Acute Assessment and plan: Likely cor pulmonale secondary to obstructive sleep apnea which has been untreated. (5) Elevated troponin: Status: Acute Assessment and plan: Likely demand ischemia: 67 > then < 50. (6) Bradycardia: Status: Acute Assessment and plan: Resolved. Continue monitoring (7) Ventricular bigeminy: Status: Acute Assessment and plan: Continues to exhibit intermittent ventricular bigeminy. Continue monitoring replete any electrolyte abnormalities (8) Hypotension: Status: Acute Assessment and plan: Transient hypotension was probably related to his bradycardia arrhythmia and ventricular ectopy. Continue to monitor on telemetry. Patient was formally transferred to the intensive care unit for close monitoring but now transitioned back to med-surg status. (9) Chronic kidney disease (CKD): Status: Chronic Assessment and plan: . Avoid NSAIDs and any nephrotoxic drugs such as aminoglycosides. Continue to monitor his renal function as we diurese him. Creatinine improved to 1.6. (10) Anemia: Status: Chronic Assessment and plan: Hgb stable. Fe low at 31 and B12 normal. Will give Venofer; 300mg IV today and tomorrow. (11) Venous insufficiency: Status: Acute Assessment and plan: Patient needs to elevate his legs in addition to receiving diuretics. (12) ELVIRA (acute kidney injury): Status: Acute Assessment and plan: Renal functions improving his creatinine is now down to his baseline of 1.6. Continue to monitor. (13) DVT prophylaxis: Status: Acute Assessment and plan: Patient is on subcutaneous heparin Subjective Subjective Patient reports: still having pain (left buttock; nonradiating. ), tolerating a regular diet and afebrile; denies diarrhea, nausea or vomiting Exam Narrative Exam Narrative: Morbidly obese white sitting in chair. Continues to complain intermittently of intense pain in the left buttock. HEENT neck veins are difficult to discern as they are obese short neck Lungs with diffuse expiratory wheezes anteriorly and posteriorly Heart with RRR. No murmur Abdomen obese soft and nontender Lower extremities left leg with dusky erythema from the foot and ankle up to the mid tibia is tender. 2+ pitting edema of his left leg and 1+ pitting edema of his right leg. Neuro exam grossly intact no focal motor deficits normal speech no focal cranial nerve deficits. Objective Last Vital Signs Temp 36.2 C L 11/21/22 12:55 Pulse 88 11/21/22 12:56 Resp 19 11/20/22 18:16 BP 158/74 H 11/21/22 12:56 Pulse Ox 94 11/21/22 12:55 Laboratory Results - last 24 hr 11/20/22 11/20/22 11/20/22 05:25 05:25 05:25 WBC RBC Hgb Hct MCV MCH MCHC RDW Plt Count MPV Immature Gran % Neutrophils % Band Neutrophils % Lymphocytes % Monocytes % Eosinophils % Basophils % Metamyelocytes % Nucleated RBC % Absolute Neutrophils Absolute Lymphocytes Absolute Monocytes Absolute Eosinophils Absolute Basophils RBC Morphology Polychromasia Hypochromasia Sodium Potassium Chloride Carbon Dioxide Anion Gap BUN Creatinine Est GFR (CKD-EPI 2020) Glucose Calcium Magnesium Iron 31 L Vitamin B12 795 Add-On Test Request DONE 11/21/22 11/21/22 06:00 06:00 WBC 16.63 H RBC 2.89 L Hgb 8.2 L Hct 26.0 L MCV 90 MCH 28.4 MCHC 31.5 L RDW 13.7 Plt Count 455 H MPV 9.1 Immature Gran % See Differential Neutrophils % 77.0 Band Neutrophils % 2 Lymphocytes % 7.0 Monocytes % 8.0 Eosinophils % 3.0 Basophils % 1.0 Metamyelocytes % 2 Nucleated RBC % 0.0 Absolute Neutrophils 13.14 H Absolute Lymphocytes 1.16 L Absolute Monocytes 1.33 H Absolute Eosinophils 0.50 Absolute Basophils 0.17 RBC Morphology See Below Polychromasia Present Hypochromasia 2+ Sodium 141 Potassium 4.2 Chloride 100 Carbon Dioxide 37.7 H Anion Gap 3.3 BUN 58 H Creatinine 1.6 H Est GFR (CKD-EPI 2020) 44.93 Glucose 131 H Calcium 8.8 Magnesium 1.7 L Iron Vitamin B12 Add-On Test Request Time Spent with Patient Time Spent with Patient: 25-34 minutes Time was spent: preparing to see the patient(eg.review tests), obtaining and/or reviewing separately otained hiistory, ordering medications,tests, procedures, referring, communicating with other health intensive care unit nurse, indepentently interpreting results and counseling the patient
[2022-11-21] MEDS: Atorvastatin 40 MG TAB 80 MG PO (20:28)
[2022-11-21] MEDS: Albuterol 2.5 MG/3 ML INH SOLN VIAL UPD (23:05)
[2022-11-21] MEDS: Lidocaine Patch Removal 1 EACH TP (23:24)
[2022-11-22] VITALS (7 sets, daily range): BP systolic 120–156; BP diastolic 64–95; PULSE 61–82; RESP 8–20; TEMP 35.9–36.6; O2SAT 91–95
--- NOTE | 2022-11-22 | DI.RAD_ITS ---
Exam(s) XR PORTABLE CHEST AP EXAM: XR PORTABLE CHEST AP CLINICAL HISTORY: Pneumonia TECHNIQUE: 2D digital imaging was performed of the chest. One image was obtained. An AP view was ob tained. COMPARISON: CR,XR XR PORTABLE CHEST AP from 11/15/2022 FINDINGS: MEDIASTINUM: Normal. HEART: Within normal limits given the AP projection. PULMONARY VASCULATURE: There is prominence of the pulmonary vasculature particularly the right hilum which can be seen on the CT scan of the chest on 11/15/2022. LUNGS: No focal consolidating infiltrates. PLEURAL SPACE: No pleural effusion or pneumothorax. BONE:Within normal limits for the patient's age. OTHER FINDINGS:Normal. IMPRESSION: No definite acute pulmonary process. If symptoms persist, a follow-up PA and lateral examination in the department may be obtained. DATA REPOSITORY: RADIATION DOSE DELIVERED:
[2022-11-22] MEDS: traMADol 50 MG TAB PO ×3 (01:16→19:48)
[2022-11-22] MEDS: IMIPENEM/CILASTATIN 500 MG in Normal Saline 100 ML 200 MG IVPB ×4 (04:40→22:44)
[2022-11-22] MEDS: oxyCODONE 5 MG TAB PO ×3 (05:02→14:58)
--- NOTE | 2022-11-22 06:24 | NUR.NOTE ---
Lab draw attempt at approximately 0550 am attempted to draw labs from patients midline double lumen. no significant blood return upon 10ml 0.9% NS flush, I flushed both lumens using a total of 7 10ml NS saline flushes. only to be able to aspirate about 5ml of waste blood. with vaccutaner attached and tubes only about 1ml of blood able to fill tube. I notified the current on shift phlebotomy of the situation. and will notify Day Team RN. Nursing Note:
[2022-11-22 07:21] LABS: Abs Immature Grans 1.02 10^3/uL (0.0-0.06); Basophils % 0.3; Eosinophils % 1.9; HCT 26.2 % (40.0-50.0); HGB 8.3 g/dL (13.5-17.5); Immature Grans % 5.8; Lymphocytes % 8.1; MCH 28.5 pg (27.0-33.0); MCHC 31.7 % (32.0-36.0); MCV 90 fL (80-95); Monocytes % 7.1; Neutrophils % 76.8; Nucleated RBC 0.1 % (0.0-0.3); Platelet Count 486 10^3/uL (130-400); RBC 2.91 10^6/uL (4.36-5.78); RDW 13.9 % (11.8-14.1); RDW-SD 45.1 fL
[2022-11-22 07:30] LABS: Absolute Basophil Count 0.05 10^3/uL (0.0-0.2); Absolute Eosinophil Count 0.34 10^3/uL (0.0-0.7); Absolute Lymphocyte Count 1.43 10^3/uL (1.2-3.4); Absolute Monocyte Count 1.26 10^3/uL (0.1-0.8); Absolute Neutrophil Count 13.59 10^3/uL (1.2-6.7)
[2022-11-22] MEDS: Budesonide/Formoterol 160/4.5 6 GM 60 PUFF INH IH ×2 (07:44→19:53)
[2022-11-22] MEDS: ALPRAZolam 0.5 MG TAB PO (07:47)
[2022-11-22] MEDS: Vitamins B Comp w/C TAB 1 TAB PO (07:47)
[2022-11-22] MEDS: Benzonatate 200 MG CAP PO ×3 (07:47→19:49)
[2022-11-22] MEDS: Tamsulosin 0.4 MG CAPCR 0.8 MG PO (07:48)
[2022-11-22] MEDS: Acetaminophen 325 MG TAB 650 MG PO ×4 (07:48→19:48)
[2022-11-22] MEDS: Magnesium Chloride 64 MG TABCR 128 MG PO (07:49)
[2022-11-22] MEDS: Ascorbic Acid 500 MG TAB PO ×2 (07:49→19:48)
[2022-11-22] MEDS: Omeprazole 20 MG CAPCR PO (07:50)
[2022-11-22] MEDS: Ferrous Sulfate 325 MG TAB PO (07:51)
[2022-11-22] MEDS: Sulfameth/Trimeth DS TAB 1 TAB PO ×2 (07:51→19:48)
[2022-11-22] MEDS: Torsemide 20 MG TAB 40 MG PO ×2 (07:51→14:57)
[2022-11-22] MEDS: guaiFENesin 600 MG TABCR PO ×2 (07:51→19:48)
[2022-11-22] MEDS: Finasteride 5 MG TAB PO (07:51)
[2022-11-22] MEDS: DULoxetine 30 MG CAP 60 MG PO (07:51)
[2022-11-22] MEDS: Lidocaine 5% Patch 1 PATCH TP (07:51)
[2022-11-22] MEDS: Methocarbamol 750 MG TAB PO ×4 (07:51→19:48)
[2022-11-22] MEDS: Nystatin POWDER 60 GM JAR TP ×3 (07:52→19:56)
[2022-11-22] MEDS: Heparin 5,000 UNITS/ML VIAL 5000 UNITS SC ×2 (07:52→14:57)
[2022-11-22] MEDS: Insulin Aspart 300 UNITS/3 ML PEN SC (07:52)
[2022-11-22] MEDS: Triamcinolone 0.1% CR 15 GM TUBE TP ×2 (07:52→19:56)
[2022-11-22] MEDS: Docusate Sodium 100 MG CAP PO (07:54)
[2022-11-22] MEDS: Lachydrin 12% LOTION 225 GM BTL TP ×2 (07:54→19:56)
[2022-11-22] MEDS: Diclofenac 1% Gel 100 GM TUBE TP ×4 (07:54→19:56)
[2022-11-22] MEDS: IRON SUCROSE COMPLEX 300 MG in Normal Saline 250 ML 167 MG IVPB (09:44)
--- NOTE | 2022-11-22 10:53 | PTTR_ITS ---
Date of service: 11/22/22 Time of Service: 10:31 PT Notes Visit Reasons: Cellulitis,ELVIRA with CKD Inpatient Physical Therapy Treatment Note [facility] Date: 11/22/22 PRECAUTIONS: Fall, standard, activity as tolerated. SUBJECTIVE: Patient reports feeling much better today, got into recliner with much less assistance, LLE less swollen, moves better. OBJECTIVE: Patient sitting up in recliner, agreeable to therapy. Demonstrates ability to dorsiflex and plantarflex left ankle, which he could not do yesterday.? PAIN: Less VITALS: monitored by nursing staff. ? Therapeutic Exercises (09590s1): Direct one-on-one instruction in therapeutic exercises to develop strength, endurance, range of motion and flexibility. ? Exercises: * sit to stand x3 * standing tolerance training 30 seconds x2 Patient requires extended rest between activities due to shortness of breath and fatigue. ? Provided skilled instruction in proper exercise performance Provided skilled manual cues to facilitate proper muscle recruitment and/or for m: Cues to stand straight, tuck hips under shoulders. ASSESSMENT:? Patient tolerates therapy much better than he has been able to recently. Expresses desire to go home to the SNF. Nose begins to bleed at end of treatment, BENOIT Rosario notified. PLAN: Continue global strengthening per plan of care within patient tolerance unitl patient is medically cleared to return to the SNF. TREATMENT CODE/TIME: 14729 Ther Ex 21 minutes beginning at 10:31
--- NOTE | 2022-11-22 11:51 | DI.VRAD_ITS ---
PROCEDURE INFORMATION: Exam: XR Chest Exam date and time: 11/22/2022 11:34 AM Age: 72 years old Clinical indication: Shortness of breath TECHNIQUE: Imaging protocol: Radiologic exam of the chest. Views: 1 view. COMPARISON: CT CHEST WO 11/15/2022 4:10 AM FINDINGS: Lungs: No consolidation. Right hilar prominence, consistent with pulmonary vasculature when compared to recent chest CT. Pleural spaces: Unremarkable. No pleural effusion. No pneumothorax. Heart/Mediastinum: Cardiomediastinal silhouette within normal limits for technique. Bones/joints: Degenerative osseous changes. IMPRESSION: No acute findings. Dictated and Authenticated by: Luan Shah MD. Ordering:LINH Esparza MD
[2022-11-22 16:19] LABS: Bilirubin Negative (Negative); Blood Large (Negative); Clarity Cloudy (Clear); Glucose Negative (Negative); Ketones Trace mg/dL (Negative); Leukocyte Esterase Negative (Negative); Nitrite Negative (Negative); Urobilinogen 0.2 mg/dL (Up to 0.2); pH 5.5 (5-8)
[2022-11-22 16:24] LABS: Bacteria Rare HPF (Negative); C & S Indicated? No; Casts Negative LPF (Negative); Crystals Negative HPF (Negative); Epithelial Cells Rare HPF (Negative); Mucus Negative (Negative); RBC >50 HPF (0-2)
[2022-11-22] MEDS: Polyethylene Glycol 3350 17 GM PACKET PO (16:55)
[2022-11-22] MEDS: Senna TAB 2 TAB PO (16:55)
--- NOTE | 2022-11-22 17:03 | W.PM.PROGNOT ---
Date of Service Date of service: 11/22/22 Time of Service: 17:03 Assessment and Plan Assessment and plan (1) Bacteremia due to Gram-negative bacteria: Status: Acute Assessment and plan: Blood culture growing achromobacter xylosocidans; sensitive to meropenem. WBC count conts to increase but he clinically shows improvement. US and CXR today w/o evidence of infectious process. Cont meropenem and bactrim. Stable BP. Afebrile. (2) Cellulitis of left leg: Status: Acute Assessment and plan: Continue wound care nurses recommendations continue antibiotics as listed above. Clinically improved. (3) CHF (congestive heart failure): Status: Chronic Assessment and plan: [id number] ultrasound performed with Dr. Messina; appears to have normal LV function however she was only able to obtain limited windows and therefore could not assess for regional wall motion abnormalities. Formal echocardiogram:Technically limited and suboptimal study Left ventricle appears grossly normal in size wall thickness and systolic function. Right atrium and right ventricle are dilated Left atrial size is normal No structural valvular disease is identified The aortic root and ascending aorta are mildly dilated The RVSP is 15.6 mmHg. He has diuresed very well on lasix drip. Lasix drip stopped. Torsemide initiated at 40mg BID (4) Right ventricular dilation: Status: Acute Assessment and plan: Likely cor pulmonale secondary to obstructive sleep apnea which has been untreated. (5) Constipation: Status: Acute Assessment and plan: No BM for 5 days. Senna 2 tabs now. Miralax now then BID (6) Elevated troponin: Status: Acute Assessment and plan: Likely demand ischemia: 67 > then < 50. (7) Bradycardia: Status: Acute Assessment and plan: Resolved. Continue monitoring (8) Ventricular bigeminy: Status: Acute Assessment and plan: Resolved. Now off telemetry. (9) Hypotension: Status: Acute Assessment and plan: Transient hypotension was probably related to his bradycardia arrhythmia and ventricular ectopy. (10) Chronic kidney disease (CKD): Status: Chronic Assessment and plan: . Avoid NSAIDs and any nephrotoxic drugs such as aminoglycosides. Continue to monitor his renal function as we diurese him. Creatinine improved to 1.6. (11) Anemia: Status: Chronic Assessment and plan: Hgb stable. Fe low at 31 and B12 normal. Venofer for replacement. (12) Venous insufficiency: Status: Acute Assessment and plan: Patient needs to elevate his legs in addition to receiving diuretics. Improving. (13) ELVIRA (acute kidney injury): Status: Acute Assessment and plan: Renal functions improving his creatinine is now down to his baseline of 1.6. Continue to monitor. (14) DVT prophylaxis: Status: Acute Assessment and plan: Patient is on subcutaneous heparin Subjective Subjective Patient reports: no new complaints, feels better, pain is less (left buttock / piriformis syndrome) and afebrile; denies bowel movement, nausea, vomiting or shortness of breath Exam Narrative Exam Narrative: Morbidly obese white male sitting in chair. Appears comfortable. Lungs clear. Nonlabored breathing. Heart with RRR. No murmur Abdomen obese soft and nontender Lower extremities left leg with dusky erythema from the foot and ankle up to the mid tibia is tender. 1+ pitting edema of his left leg and 1+ pitting edema of his right leg. Left leg with desquamating epidermis. Neuro exam grossly intact no focal motor deficits normal speech no focal cranial nerve deficits. Objective Last Vital Signs Temp 35.9 C L 11/22/22 15:10 Pulse 74 11/22/22 15:10 Resp 20 11/22/22 11:00 BP 135/75 11/22/22 15:10 Pulse Ox 92 11/22/22 15:10 Laboratory Results - last 24 hr 11/22/22 11/22/22 06:30 16:00 WBC 17.70 H RBC 2.91 L Hgb 8.3 L Hct 26.2 L MCV 90 MCH 28.5 MCHC 31.7 L RDW 13.9 Plt Count 486 H MPV 9.0 Immature Gran % 5.8 Neutrophils % 76.8 Lymphocytes % 8.1 Monocytes % 7.1 Eosinophils % 1.9 Basophils % 0.3 Nucleated RBC % 0.1 Absolute Neutrophils 13.59 H Absolute Lymphocytes 1.43 Absolute Monocytes 1.26 H Absolute Eosinophils 0.34 Absolute Basophils 0.05 Urine Color Red Urine Clarity Cloudy Urine pH 5.5 Ur Specific [place] 1.010 Urine Protein 100 H Urine Ketones Trace H Urine Blood Large H Urine Nitrite Negative Urine Bilirubin Negative Urine Urobilinogen 0.2 Ur Leukocyte Esterase Negative Urine RBC >50 H Urine WBC 3-5 Ur Epithelial Cells Rare Urine Crystals Negative Urine Bacteria Rare Urine Casts Negative Urine Mucus Negative Ur Culture Indicated? No Urine Glucose Negative Time Spent with Patient Time Spent with Patient: 25-34 minutes Time was spent: preparing to see the patient(eg.review tests), obtaining and/or reviewing separately otained hiistory, ordering medications,tests, procedures, referring, communicating with other health career development director, indepentently interpreting results, counseling the patient and care coordination
[2022-11-22] MEDS: HYDROmorphone 2 MG/ML SYR IVP (19:47)
[2022-11-22] MEDS: Atorvastatin 40 MG TAB 80 MG PO (19:48)
[2022-11-22] MEDS: Melatonin 3 MG TAB 6 MG PO (19:48)
[2022-11-22] MEDS: Albuterol 2.5 MG/3 ML INH SOLN VIAL UPD (19:53)
[2022-11-22] MEDS: Lidocaine Patch Removal 1 EACH TP (23:13)
[2022-11-23] MEDS: oxyCODONE 5 MG TAB PO ×4 (00:53→19:54)
[2022-11-23] MEDS: HYDROmorphone 2 MG/ML SYR IVP (00:53)
[2022-11-23] MEDS: Heparin 5,000 UNITS/ML VIAL 5000 UNITS SC ×3 (00:54→15:25)
[2022-11-23 03:00] VITALS: BP 142/76; PULSE 75; RESP 18; TEMP 35.7; O2SAT 96
[2022-11-23] MEDS: IMIPENEM/CILASTATIN 500 MG in Normal Saline 100 ML 200 MG IVPB ×2 (04:32→10:31)
[2022-11-23 07:05] LABS: Abs Immature Grans 0.72 10^3/uL (0.0-0.06); Absolute Lymphocyte Count 1.43 10^3/uL (1.2-3.4); Absolute Neutrophil Count 10.64 10^3/uL (1.2-6.7); Basophils % 0.3; Eosinophils % 2.7; HCT 26.4 % (40.0-50.0); HGB 8.3 g/dL (13.5-17.5); MCHC 31.4 % (32.0-36.0); MCV 92 fL (80-95); MPV 9.4 fL (8.0-11.0); Monocytes % 7.6; Neutrophils % 74.4; Platelet Count 536 10^3/uL (130-400); RBC 2.86 10^6/uL (4.36-5.78); RDW-SD 47.4 fL
[2022-11-23 07:10] VITALS: BP 150/55; PULSE 64; RESP 22; TEMP 36.3; O2SAT 93
[2022-11-23 07:21] LABS: Anion Gap 1.2 mmol/L (3-11); BUN 53 mg/dL (7-18); CO2 40.8 mmol/L (21.0-32.0); CREATININE 1.9 mg/dL (0.70-1.30); Chloride 96 mmol/L (98-107); Estimated GFR 36.56 (mL/min/1.73m2); Glucose 118 mg/dL (74-106); Potassium 4.4 mmol/L (3.5-5.1); Sodium 138 mmol/L (136-145)
[2022-11-23 07:22] LABS: Magnesium 2.2 mg/dL (1.8-2.4)
[2022-11-23 07:41] LABS: Absolute Basophil Count 0.04 10^3/uL (0.0-0.2); Absolute Eosinophil Count 0.39 10^3/uL (0.0-0.7); Absolute Monocyte Count 1.09 10^3/uL (0.1-0.8)
--- NOTE | 2022-11-23 08:14 | OT.INIE ---
Occupational Therapy Notes Inpatient Occupational Therapy Evaluation Date: 11/23/22 Referring Doctor:Payal George NP OT Orders: Non Urgent- Wrap (R) wrist Precautions: Fall, Standard, Full PATIENT PROFILE/ADMITTING DIAGNOSIS: Pt is a 72 year old male who was admitted to [facility] for management of cellulitis of left leg, acute kidney injury, chronic kidney disease, venous insufficiency, and uncontrolled type 2 diabetes mellitus.? Past Medical History: All Active Problems?(Updated 11/15/22 @ 08:00 by Som Smith) 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) ELVIRA (acute kidney injury) (Acute) Acute uremia (Acute) Cellulitis of left leg (Acute) Medical History? Chronic kidney disease (CKD) GERD (gastroesophageal reflux disease) Hyperlipemia Major depression Osteoarthritis Other retention of urine UTI (urinary tract infection) Venous insufficiency Social History/Home Situation: [facility] He notes that he is fairly (I) but that he does need (A) at his baseline level of function in regards to his ADL/IADL routines. He reports that his wrist is arthritis and that he doesn't need a brace at this time. He feels that the Volatrin rub is helping with his pain. Equipment owned/DME: DME needs met by SNF SUBJECTIVE: Pt was lying in bed when OT arrived. He states that he doesn't feel that he needs OT services and his wrist is feeling better with the Voltarin rub. He notes that he seems to be improving. OBJECTIVE: General Observation: Redness on the (R) Wrist he states that this is a reaction from luisana bandage, IV in (R) UE in the antecubital fossa, pain in low back, nasal oxygen Mental Status: A&Ox3 Pain: c/o in low back but improving ROM: RUE (R) shoulder flexion limited d/t pain, elbow, wrist, hand and digit WFL L UE AROM WFL STRENGTH: RUE 3/5 throughout LUE 4-/5 throughout FUNCTIONAL MOBILITY/ADLS: BATHING Pt refuses at todays session he indicates that he needs the following while performing his bathing routines including Bathing UE (I) face and (B) UE, max (A) lower abdomen Bathing LE Max (A) under abdomen, (B) LE and scarlet area DRESSING Dressing LE requires max (A) EATING (I) with eating demands with no issues with chewing and swallowing. BALANCE: Static sitting Normal Dynamic Sitting Normal SPECIAL TESTS: Daily Activity Limitations Standardized Measure [facility] AM -PAC ?6 clicks? Daily Activity Inpatient Short Form: Raw score: 16 Standardized score: 35.96 CMS score: 53.32% INFORMED CONSENT/EDUCATION: Pt instructed in purpose of OT Consult and plan of care. ASSESSMENT: Patient is a 72-year-old male referred to occupational therapy services with diagnosis of management of cellulitis of left leg, acute kidney injury, chronic kidney disease, venous insufficiency, and uncontrolled type 2 diabetes mellitus. Patient presents with clinical signs and symptoms consistent with dx, as demonstrated by the following impairment level findings/functional limitations: Impairments in ADL/IADL and leisure activities, decrease (R) UE ROM, LBP, pain in (B) knees, pain in (R) wrist pt states is d/ arthritis, decreased functional mobility. Pt states that besides his back pain which limits him from his functional mobility he feels that he is at his baseline level of function in regards to his ADLs. He notes that at the SNF he does need (A). He states that he feels that he is at his baseline level of function for his ADLs. AMPAC score 16 Patient is assessed as a Low 92702 complexity based on the following: History: see above Examination: see functional limitations as noted above Presentation: evolving Decision Making: AMPAC score 16 GOALS N/A seen for OT consult only. PLAN OF CARE/TREATMENT PLAN: Pt would like to hold on skilled Occupational Therapy services at this time. Discharge from skilled OT services. DISCHARGE RECOMMENDATIONS Return to SNF when medically cleared per MD. Pt denies need for further care for his (R) wrist which he states is feeling better with the Volatrin rub. OT recommends that if pts pain persists- outpatient OT referral for splint fabrication. TREATMENT TIME/MINUTES/CODES 77342, 20 minutes (07:50) TORI Saeed/[facility] [place], [place]
[2022-11-23] MEDS: Nystatin POWDER 60 GM JAR TP ×3 (08:25→19:55)
[2022-11-23] MEDS: Omeprazole 20 MG CAPCR PO (08:26)
[2022-11-23] MEDS: Triamcinolone 0.1% CR 15 GM TUBE TP ×2 (08:26→19:55)
[2022-11-23] MEDS: Lachydrin 12% LOTION 225 GM BTL TP ×2 (08:26→19:55)
[2022-11-23] MEDS: Milk of Magnesia 30 ML CUP PO (08:26)
[2022-11-23] MEDS: guaiFENesin 600 MG TABCR PO ×2 (08:27→19:54)
[2022-11-23] MEDS: Benzonatate 200 MG CAP PO ×3 (08:27→19:54)
[2022-11-23] MEDS: ALPRAZolam 0.5 MG TAB PO (08:27)
[2022-11-23] MEDS: Magnesium Chloride 64 MG TABCR 128 MG PO (08:27)
[2022-11-23] MEDS: Acetaminophen 325 MG TAB 650 MG PO ×4 (08:27→19:53)
[2022-11-23] MEDS: Tamsulosin 0.4 MG CAPCR 0.8 MG PO (08:28)
[2022-11-23] MEDS: Lidocaine 5% Patch 1 PATCH TP (08:28)
[2022-11-23] MEDS: Vitamins B Comp w/C TAB 1 TAB PO (08:28)
[2022-11-23] MEDS: Torsemide 20 MG TAB 40 MG PO ×2 (08:28→15:25)
[2022-11-23] MEDS: DULoxetine 30 MG CAP 60 MG PO (08:28)
[2022-11-23] MEDS: Polyethylene Glycol 3350 17 GM PACKET PO ×2 (08:28→19:53)
[2022-11-23] MEDS: Ascorbic Acid 500 MG TAB PO ×2 (08:29→19:54)
[2022-11-23] MEDS: Docusate Sodium 100 MG CAP PO (08:29)
[2022-11-23] MEDS: Methocarbamol 750 MG TAB PO ×4 (08:29→19:54)
[2022-11-23] MEDS: Sulfameth/Trimeth DS TAB 1 TAB PO ×2 (08:29→19:54)
[2022-11-23] MEDS: Finasteride 5 MG TAB PO (08:29)
[2022-11-23] MEDS: Ferrous Sulfate 325 MG TAB PO (08:29)
[2022-11-23 08:32] LABS: Diff Comment Agrees w/ Instrument
[2022-11-23 08:33] LABS: Hypochromasia 2+
[2022-11-23] MEDS: Budesonide/Formoterol 160/4.5 6 GM 60 PUFF INH IH (09:45)
[2022-11-23 09:46] VITALS: O2SAT 97
[2022-11-23] MEDS: Diclofenac 1% Gel 100 GM TUBE TP ×3 (10:02→19:55)
--- NOTE | 2022-11-23 10:05 | CMPROGNOTE_ITS ---
Date of service: 11/23/22 Time of Service: 10:05 Care Management Progress Note Progress Note Text Progress Note Text: S/O: Shivam was sitting up in a chair when CM met with him. He stated that he feels much better and the pain in his back and buttocks is much improved. He shared that he is beginning to miss the staff at [facility] and looks forward to returning, hopefully tomorrow or the next day. His cellulitis has imprved as well and his WBC is slowly coming down. A: Shivam is a 72 year old man admitted on 11/15/[address] [facility] with cellulitis and ELVIRA P?Shivam will return to [email or web address] when medically cleared by provider.? He will follow up with his PCP and plan of care as prescribed.? He will be transported back to the [facility] via facility van when ready.? CM will continue to follow.
--- NOTE | 2022-11-23 10:50 | PTTR_ITS ---
Date of service: 11/23/22 Time of Service: 10:23 PT Notes Visit Reasons: Cellulitis,ELVIRA with CKD Inpatient Physical Therapy Treatment Note [facility] Date: 11/23/22 PRECAUTIONS: Fall, standard, activity as tolerated. SUBJECTIVE: Patient reports feeling better, until this therapist suggests attempting to walk. Then he reports right wrist pain, left hip pain, bilateral knee pain worse on the left, and fear about falling. States if he were to fall it would be game over. Done. OBJECTIVE: Sitting up in recliner with feet down, agreeable to therapy. ? PAIN: Yes (see above). Reports knee pain is the limiting factor in further ambulation. VITALS: monitored by nursing staff. ? BED MOBILITY/TRANSFERS? Sit-stand: Mod x1 ? Stand-sit: CGA with verbal and tactile cues ? Bed-Chair: CGA with verbal and tactile cues ? Chair-bed: CGA with verbal and tactile cues ? Therapeutic Exercises (31603o2): Direct one-on-one instruction in therapeutic exercises to develop strength, endurance, range of motion and flexibility. ? Exercises: * Sit to stands x5 ?Ambulation ? Assistive Device: Standard bariatric walker (no wheels)? Weight bearing: full Assist: CGA x2, wheelchair follow, assist with IV pole and Rodney catheter management. ? Distance:? 5 feet, seated rest, 7 feet, seated rest, 3 feet. ? Deviation: Extremely short step length, reports and vocalizations of pain in bilateral knees. Stooped posture. ? Provided skilled instruction in proper exercise performance Provided skilled manual cues to facilitate proper muscle recruitment and/or form. Patient education regarding pacing and breathing techniques to maximize activity tolerance ASSESSMENT:? Patient tolerates therapy well. Resting up in recliner at end of session, call kauffman in easy reach. PLAN: Continue global strengthening per plan of care untill patient is medically cleared to return to the SNF at which he resides. TREATMENT CODE/TIME: 31804 Ther Ex 26 minutes beginning at 10:23
[2022-11-23] MEDS: IRON SUCROSE COMPLEX 300 MG in Normal Saline 250 ML 167 MG IVPB (11:42)
[2022-11-23 11:47] VITALS: BP 163/70; PULSE 72; RESP 22; TEMP 36.7; O2SAT 94
[2022-11-23 16:05] VITALS: BP 113/69; PULSE 78; RESP 20; TEMP 36.2; O2SAT 98
--- NOTE | 2022-11-23 18:24 | W.PM.PROGNOT ---
Date of Service Date of service: 11/23/22 Time of Service: 18:24 Assessment and Plan Assessment and plan (1) Bacteremia due to Gram-negative bacteria: Status: Acute Assessment and plan: Blood culture growing achromobacter xylosocidans; sensitive to meropenem. WBC count has now started to trend downward. US and CXR today w/o evidence of infectious process. Cont meropenem and bactrim. Stable BP. Afebrile. (2) Cellulitis of left leg: Status: Acute Assessment and plan: Continue wound care nurses recommendations continue antibiotics as listed above. Clinically improved. (3) CHF (congestive heart failure): Status: Chronic Assessment and plan: [id number] ultrasound performed with Dr. Messina; appears to have normal LV function however she was only able to obtain limited windows and therefore could not assess for regional wall motion abnormalities. Formal echocardiogram:Technically limited and suboptimal study Left ventricle appears grossly normal in size wall thickness and systolic function. Right atrium and right ventricle are dilated Left atrial size is normal No structural valvular disease is identified The aortic root and ascending aorta are mildly dilated The RVSP is 15.6 mmHg. He has diuresed very well on lasix drip. Lasix drip stopped. Torsemide initiated at 40mg BID (4) Right ventricular dilation: Status: Acute Assessment and plan: Likely cor pulmonale secondary to obstructive sleep apnea which has been untreated. (5) Constipation: Status: Acute Assessment and plan: No BM for 5 days. Senna 2 tabs now. Miralax now then BID (6) Elevated troponin: Status: Acute Assessment and plan: Likely demand ischemia: 67 > then < 50. (7) Bradycardia: Status: Acute Assessment and plan: Resolved. Continue monitoring (8) Ventricular bigeminy: Status: Acute Assessment and plan: Resolved. Now off telemetry. (9) Hypotension: Status: Acute Assessment and plan: Transient hypotension was probably related to his bradycardia arrhythmia and ventricular ectopy. (10) Chronic kidney disease (CKD): Status: Chronic Assessment and plan: . Avoid NSAIDs and any nephrotoxic drugs such as aminoglycosides. Continue to monitor his renal function as we diurese him. Creatinine improved to 1.6. (11) Anemia: Status: Chronic Assessment and plan: Hgb stable. Fe low at 31 and B12 normal. Venofer for replacement. (12) Venous insufficiency: Status: Acute Assessment and plan: Patient needs to elevate his legs in addition to receiving diuretics. Improving. (13) ELVIRA (acute kidney injury): Status: Acute Assessment and plan: Renal functions improving his creatinine is now down to his baseline of 1.6 - 1.9. Continue to monitor. (14) DVT prophylaxis: Status: Acute Assessment and plan: Patient is on subcutaneous heparin Subjective Subjective Patient reports: no new complaints, feels better and afebrile; denies diarrhea, nausea, vomiting or shortness of breath Exam Narrative Exam Narrative: Morbidly obese white male sitting in chair. Appears comfortable. Lungs clear. Nonlabored breathing. Heart with RRR. No murmur Abdomen obese soft and nontender Lower extremities left leg with dusky erythema / brawny discoloration from the foot and ankle up to the mid tibia. No longer tender. 1+ pitting edema of his left leg and 1+ pitting edema of his right leg. Left leg with desquamating epidermis. Neuro exam grossly intact no focal motor deficits normal speech no focal cranial nerve deficits. Objective Last Vital Signs Temp 36.2 C L 11/23/22 16:05 Pulse 78 11/23/22 16:05 Resp 20 11/23/22 16:05 BP 113/69 11/23/22 16:05 Pulse Ox 98 11/23/22 16:05 Laboratory Results - last 24 hr 11/23/22 11/23/22 11/23/22 05:40 05:40 05:40 WBC 14.30 H RBC 2.86 L Hgb 8.3 L Hct 26.4 L MCV 92 MCH 29.0 MCHC 31.4 L RDW 14.0 Plt Count 536 H MPV 9.4 Immature Gran % 5.0 Neutrophils % 74.4 Lymphocytes % 10.0 Monocytes % 7.6 Eosinophils % 2.7 Basophils % 0.3 Nucleated RBC % 0.0 Absolute Neutrophils 10.64 H Absolute Lymphocytes 1.43 Absolute Monocytes 1.09 H Absolute Eosinophils 0.39 Absolute Basophils 0.04 RBC Morphology See Below Hypochromasia 2+ Sodium 138 Potassium 4.4 Chloride 96 L Carbon Dioxide 40.8 H Anion Gap 1.2 L BUN 53 H Creatinine 1.9 H Est GFR (CKD-EPI 2020) 36.56 Glucose 118 H Calcium 9.0 Magnesium 2.2 Time Spent with Patient Time Spent with Patient: 25-34 minutes Time was spent: preparing to see the patient(eg.review tests), obtaining and/or reviewing separately otained hiistory, ordering medications,tests, procedures, referring, communicating with other health pet caregiver, indepentently interpreting results, counseling the patient and care coordination
[2022-11-23] MEDS: Atorvastatin 40 MG TAB 80 MG PO (19:54)
[2022-11-23] MEDS: Melatonin 3 MG TAB 6 MG PO (19:54)
[2022-11-23] MEDS: traMADol 50 MG TAB PO (19:54)
[2022-11-23] MEDS: Lidocaine Patch Removal 1 EACH TP (21:55)
--- NOTE | 2022-11-24 | DI.US_ITS ---
Exam(s) US SOFT TISSUE EXTREMITY EXAM: US SOFT TISSUE EXTREMITY CLINICAL HISTORY: cellulitis. swelling of dorsum of foot. TECHNIQUE: Ultrasound was performed using standard protocol. COMPARISON: No exams were available for comparison FINDINGS: Sonographic assessment utilizing grayscale and color Doppler imaging was performed and targeted to th e area of clinical concern. Significant edema seen in the subcutaneous tissues on the dorsum of the foot. No focal fluid collect ion is identified. IMPRESSION: Subcutaneous edema on the dorsum of the left foot. No focal fluid collection is seen sonographically to suggest an abscess. This may reflect cellulitis. DATA REPOSITORY:
[2022-11-24] MEDS: Heparin 5,000 UNITS/ML VIAL 5000 UNITS SC ×2 (00:04→07:42)
[2022-11-24] MEDS: HYDROmorphone 2 MG/ML SYR IVP ×3 (00:16→14:48)
[2022-11-24] MEDS: oxyCODONE 5 MG TAB PO ×3 (00:17→12:17)
[2022-11-24 06:34] VITALS: BP 145/78; PULSE 82; RESP 18; TEMP 37; O2SAT 94
[2022-11-24 06:42] LABS: Abs Immature Grans 0.61 10^3/uL (0.0-0.06); Absolute Basophil Count 0.06 10^3/uL (0.0-0.2); Absolute Eosinophil Count 0.42 10^3/uL (0.0-0.7); Absolute Neutrophil Count 11.19 10^3/uL (1.2-6.7); Basophils % 0.4; Eosinophils % 2.8; HCT 26.4 % (40.0-50.0); HGB 8.1 g/dL (13.5-17.5); Immature Grans % 4.1; MCH 28.1 pg (27.0-33.0); MCHC 30.7 % (32.0-36.0); MCV 92 fL (80-95); MPV 8.8 fL (8.0-11.0); Monocytes % 7.8; Neutrophils % 74.9; Platelet Count 512 10^3/uL (130-400); RBC 2.88 10^6/uL (4.36-5.78); RDW 14.1 % (11.8-14.1); RDW-SD 47.2 fL; WBC 14.94 10^3/uL (4.4-10.8)
[2022-11-24 06:48] LABS: Absolute Lymphocyte Count 1.49 10^3/uL (1.2-3.4); Absolute Monocyte Count 1.17 10^3/uL (0.1-0.8)
[2022-11-24 07:09] LABS: Anion Gap 2.2 mmol/L (3-11); BUN 49 mg/dL (7-18); CO2 37.8 mmol/L (21.0-32.0); CREATININE 1.9 mg/dL (0.70-1.30); Calcium 8.9 mg/dL (8.5-10.1); Chloride 96 mmol/L (98-107); Estimated GFR 36.56 (mL/min/1.73m2); Glucose 100 mg/dL (74-106); Potassium 4.5 mmol/L (3.5-5.1); Sodium 136 mmol/L (136-145)
[2022-11-24 07:27] VITALS: BP 152/64; PULSE 65; RESP 16; TEMP 36.6; O2SAT 95
[2022-11-24 07:40] LABS: Basophilic Stippling Present; Diff Comment Agrees w/ Instrument; Hypochromasia 2+; Polychromasia Present
[2022-11-24 07:41] LABS: Poikilocytes 1+
[2022-11-24] MEDS: Lidocaine 5% Patch 1 PATCH TP (07:41)
[2022-11-24] MEDS: Polyethylene Glycol 3350 17 GM PACKET PO (07:41)
[2022-11-24] MEDS: DULoxetine 30 MG CAP 60 MG PO (07:42)
[2022-11-24] MEDS: Vitamins B Comp w/C TAB 1 TAB PO (07:43)
[2022-11-24] MEDS: ALPRAZolam 0.5 MG TAB PO (07:43)
[2022-11-24] MEDS: Tamsulosin 0.4 MG CAPCR 0.8 MG PO (07:43)
[2022-11-24] MEDS: Magnesium Chloride 64 MG TABCR 128 MG PO (07:43)
[2022-11-24] MEDS: Omeprazole 20 MG CAPCR PO (07:43)
[2022-11-24] MEDS: Acetaminophen 325 MG TAB 650 MG PO ×2 (07:43→12:17)
[2022-11-24] MEDS: Benzonatate 200 MG CAP PO (07:43)
[2022-11-24] MEDS: Torsemide 20 MG TAB 40 MG PO (07:43)
[2022-11-24] MEDS: Docusate Sodium 100 MG CAP PO (07:44)
[2022-11-24] MEDS: guaiFENesin 600 MG TABCR PO (07:44)
[2022-11-24] MEDS: Ferrous Sulfate 325 MG TAB PO (07:44)
[2022-11-24] MEDS: Ascorbic Acid 500 MG TAB PO (07:44)
[2022-11-24] MEDS: Nystatin POWDER 60 GM JAR TP (07:44)
[2022-11-24] MEDS: Sulfameth/Trimeth DS TAB 1 TAB PO (07:44)
[2022-11-24] MEDS: Methocarbamol 750 MG TAB PO ×2 (07:44→12:17)
[2022-11-24] MEDS: Finasteride 5 MG TAB PO (07:44)
[2022-11-24] MEDS: Triamcinolone 0.1% CR 15 GM TUBE TP (07:45)
[2022-11-24] MEDS: Lachydrin 12% LOTION 225 GM BTL TP (07:45)
[2022-11-24] MEDS: Budesonide/Formoterol 160/4.5 6 GM 60 PUFF INH IH (08:37)
[2022-11-24 08:41] VITALS: O2SAT 98
[2022-11-24 09:06] VITALS: O2SAT 92
[2022-11-24 11:04] VITALS: BP 128/64; PULSE 72; RESP 16; TEMP 36.5; O2SAT 97
[2022-11-24] MEDS: IRON SUCROSE COMPLEX 300 MG in Normal Saline 250 ML 167 MG IVPB (11:15)
--- NOTE | 2022-11-24 14:15 | PDOC.CMDIS ---
Date of service: 11/24/22 Time of Service: 14:15 LACE Index Scoring Tool Questions: Length of Stay (in days): 7 - 13 Was the patient admitted via the E.D.?: Yes Comorbidities: Diabetes w/o Complication, Congestive Heart Failure and Liver or Renal Disease E.D. Visits: 1 Answers: Total Score: 14 Risk of Readmission: High Risk Care Management Discharge Plan Reason for Hospitalization: Cellulitis, ELVIRA with CKD Discharge Plan: Shivam is discharged back to [facility] where he resides. He will be transported via facility w/c van. Shivam will follow up with facility/community providers and his discharge plan of care as instructed. Patient/Family Education Needs: Review discharge instructions and plan to follow up with community providers. Discuss ask me three. Services Needed at Discharge: Alf Facility ([facility])
--- NOTE | 2022-11-24 14:40 | DSE_ITS ---
Date of service: 11/24/22 Time of Service: 14:40 DS: Diagnosis Discharge Diagnosis (1) Bacteremia due to Gram-negative bacteria: Status: Acute Asessment and Plan: Blood culture growing achromobacter xylosocidans; sensitive to meropenem. He is discharging on a 5 day course of levaquin 750mg daily. (2) Cellulitis of left leg: Status: Acute Asessment and Plan: Meropenum during course of hospitalization. Cellulitis resolving. Levaquin 750mg daily for 5 days. Ammonium lactate 12% lotion to left leg below the knee BID. Elevate legs frequently (3) CHF (congestive heart failure): Status: Chronic Asessment and Plan: Torsemide 40mg BID (4) Constipation: Status: Acute Asessment and Plan: Per nursing facility regimen. (5) Elevated troponin: Status: Acute Asessment and Plan: Demand ischemia. (6) Bradycardia: Status: Acute Asessment and Plan: Resolved. (7) Hypotension: Status: Acute Asessment and Plan: Resolved with initial resuscitation when admitted. (8) Chronic kidney disease (CKD): Status: Chronic Asessment and Plan: At his baseline (9) Anemia: Status: Chronic Asessment and Plan: At his baseline. Venofer 300mg IV x 3 infused Monitor. (10) Venous insufficiency: Status: Acute Asessment and Plan: Diuretics Elevate legs. Discharge Plan Disposition Patient Disposition: Intermediate Facility(SNF) Condition: Improving Discharge Details Reason For Visit: Cellulitis,ELVIRA with CKD Admit Date/Time: 11/15/22 05:49 Admit Provider: Som Smith Attending Provider: Som Smith Hospital Course Hospital Course: This is a 72-year-old male patient who lives in the [facility] facility [facility] the hospital who presents with increased pain in his left leg with redness and swelling.? He is chronically edematous with venous stasis edema of both lower extremities and chronic skin changes and is not able to walk.? His left foot is markedly swollen.? His right leg has an Unna boot and is less swollen and less tender though it does have some drainage over the foot.? He has had no fever or chills but has had chronic pain with the skin changes as mentioned.? This all worsened over the last week.? He was on the Levaquin by mouth but this has not been continued.? He was brought to the ED for evaluation and found to have lactic acidosis with negative procalcitonin.? CTA of the chest was performed and there was some question of pneumonia which was mitigated by this test with patient having no evidence of infiltrates in the lungs.? He was initiated on Zosyn and vancomycin for cellulitis but because of renal function Zosyn was changed to imepinem 1 g IV every 8 hours.? Blood cultures were performed though the patient was not febrile.? Patient BUN/creatinine were elevated from his baseline he appears dehydrated.? His BNP was up moderately but stable and he does have a history of diabetes with his glucose slightly up and sodium down.? H is potassium was elevated with his CKD and lisinopril was being held as be IV hydrated the patient.? He is very anxious about his health and is fearful of not getting better.? He is a full code See Diagnosis Home Meds and New Rx's Prescriptions: New diclofenac sodium 3 % Gel 1 applic topical QID Qty: 100 0RF ammonium lactate 12 % Lotion 1 applic topical BID Qty: 400 0RF methocarbamol 750 mg Tablet 750 mg PO TID 5 Days Qty: 15 0RF oxycodone 5 mg Tablet 5 mg PO Q4H PRN PRNQty: 12 0RF torsemide 20 mg Tablet 40 mg PO 0830,1600 Qty: 0 0RF levofloxacin 750 mg tablet 750 mg PO DAILY Qty: 7 0RF Continued acetaminophen 500 mg Tablet 500 mg PO BID ascorbic acid (vitamin C) 500 mg Tablet 500 mg PO BID atorvastatin 80 mg Tablet 80 mg PO QHS celecoxib [Celebrex] 100 mg Capsule 100 mg PO BID docusate sodium [Colace] 100 mg Capsule 100 mg PO DAILY bisacodyl [Dulcolax (bisacodyl)] 10 mg Suppository 10 mg IN DAILY PRN duloxetine 60 mg Capsule,Delayed Release(Dr/Ec) 60 mg PO DAILY ferrous sulfate 325 mg (65 mg iron) Tablet 325 mg PO DAILY finasteride 5 mg Tablet 5 mg PO DAILY furosemide 80 mg Tablet 80 mg PO BID guaifenesin [Latoya-Tussin] 100 mg/5 mL Liquid 200 mg PO Q4H PRN loperamide [Imodium A-D] 2 mg Tablet 2 mg PO Q4H PRN Rx Instructions: administer after each loose stool until symptoms controlled; do not exceed 8 mg per 24 hrs ipratropium-albuterol 0.5 mg-3 mg(2.5 mg base)/3 mL Solution For Nebulization 3 ml INHALATION Q6H PRN lisinopril 20 mg Tablet 20 mg PO DAILY magnesium chloride 64 mg Tablet Extended Release 128 mg PO DAILY melatonin 5 mg Tablet 5 mg PO HS PRN metformin 1,000 mg Tablet 1,000 mg PO BID metoprolol succinate 50 mg Tablet Extended Release 24 Hr 50 mg PO DAILY magnesium hydroxide [Milk of Magnesia] 400 mg/5 mL Suspension 400 mg PO DAILY PRN PRN polyethylene glycol 3350 [Miralax] 17 gram Powder In Packet 17 g PO DAILY nitroglycerin 0.4 mg Tablet, Sublingual 0.4 mg SUBLINGUAL Q5-15M PRN Rx Instructions: do not exceed 3 doses per episode omeprazole 20 mg Tablet,Delayed Release (Dr/Ec) 20 mg PO DAILY budesonide-formoterol [Symbicort] 160-4.5 mcg/actuation Hfa Aerosol Inhaler 2 puff INHALATION BID tamsulosin 0.4 mg Capsule 0.8 mg PO DAILY triamcinolone acetonide 0.1 % Cream 1 applic TOPICAL BID vit [id number] no.15 [id number]-mg Capsule 1,000 cap PO DAILY alprazolam [Xanax] 0.5 mg Tablet 0.5 mg PO DAILY Discharge Instructions Activity:: Activity as Tolerated Equipment/Supplies:: No Equipment Needed Diet:: resume usual home diet DS: Summary Time Spent with Patient providing and/or coordinating discharge services: Greater than 30 minutes Status at Discharge Functional status at discharge: independent ambulation Overall status at discharge: patient is progressing back to baseline Mental Status: mental status grossly normal Speech and Movement: speech clear Mood: congruent mood Affect: normal affect Exam Narrative Exam Narrative: Morbidly obese white male sitting in chair. Appears comfortable. Lungs clear. Nonlabored breathing. Heart with RRR. No murmur Abdomen obese soft and nontender Lower extremities left leg with dusky erythema / brawny discoloration from the foot and ankle up to the mid tibia. No longer tender. 1+ pitting edema of his left leg and 1+ pitting edema of his right leg. Left leg with desquamating epidermis. Neuro exam grossly intact no focal motor deficits normal speech no focal cranial nerve deficits. Psych Mental Status: mental status grossly normal Speech and Movement: speech clear Mood: congruent mood Affect: normal affect DS: Data Vitals/I&O Vitals and I&O: Vital Signs Temperature 36.5 C 11/24/22 11:04 Temperature Source Tympanic 11/24/22 11:04 Pulse 72 11/24/22 11:04 Pulse Rhythm Regular 11/24/22 08:00 Pulse 81 11/20/22 08:00 Respiratory Rate 16 11/24/22 11:04 Respiratory Effort Normal, Non-Labored 11/24/22 08:00 Respiratory Depth Shallow 11/24/22 08:00 Respiratory Pattern Normal 11/24/22 08:00 Blood Pressure 128/64 11/24/22 11:04 Blood Pressure Mean 87 11/21/22 15:05 Blood Pressure Position Sitting 11/20/22 13:31 Pulse Oximetry 97 11/24/22 11:04 Oxygen Delivery Method Nasal Cannula 11/24/22 11:04 Oxygen Flow Rate 3 11/24/22 11:04 Fraction of Inspired Oxygen (FIO2) 94 11/23/22 21:27 Pain Level 5 11/24/22 12:17 Comment pt uses 4 Liter at home 11/24/22 06:34 Intake & Output 11/23/22 11/24/22 11/24/22 23:59 11:59 23:59 Intake Total 505 / 805 210 / 975 765 / 975 Output Total 1900 / 4050 2100 / 2400 300 / 2400 Balance -1395 / -3245 -1890 / -1425 465 / -1425 Intake: IV 265 / 565 10 / 275 265 / 275 Oral 240 / 240 200 / 700 500 / 700 Output: Urine 1900 / 4050 2100 / 2400 300 / 2400 Other: Urine Color Yellow Dark Starla Light Starla Urine Appearance Clear Clots Urine Odor None Comment blood cots in bl ood Stool Size Large Stool Characteristics Formed Data Completed and Pending Labs on day of discharge: Labs from last 24 hours 11/24/22 11/24/22 06:26 06:26 WBC 14.94 H RBC 2.88 L Hgb 8.1 L Hct 26.4 L MCV 92 MCH 28.1 MCHC 30.7 L RDW 14.1 Plt Count 512 H MPV 8.8 Immature Gran % 4.1 Neutrophils % 74.9 Lymphocytes % 10.0 Monocytes % 7.8 Eosinophils % 2.8 Basophils % 0.4 Nucleated RBC % 0.0 Absolute Neutrophils 11.19 H Absolute Lymphocytes 1.49 Absolute Monocytes 1.17 H Absolute Eosinophils 0.42 Absolute Basophils 0.06 RBC Morphology See Below Polychromasia Present Hypochromasia 2+ Poikilocytosis 1+ Basophilic Stippling Present Sodium 136 Potassium 4.5 Chloride 96 L Carbon Dioxide 37.8 H Anion Gap 2.2 L BUN 49 H Creatinine 1.9 H Est GFR (CKD-EPI 2020) 36.56 Glucose 100 Calcium 8.9 PFSH All Active Problems Constipation (Acute) Chronic pain (Chronic) Advanced care planning/counseling discussion (Acute) Palliative care encounter (Acute) Depression due to physical illness (Acute) DVT prophylaxis (Acute) Ventricular bigeminy (Acute) Hypotension (Acute) Right ventricular dilation (Acute) Elevated troponin (Acute) Anemia (Chronic) Leukocytosis (Acute) CHF (congestive heart failure) (Chronic) Bacteremia due to Gram-negative bacteria (Acute) Bradycardia (Acute) Venous insufficiency (Acute) Chronic kidney disease (CKD) (Chronic) Chronic pain of right wrist (Acute) 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) ELVIRA (acute kidney injury) (Acute) Acute uremia (Acute) Cellulitis of left leg (Acute) Medical History GERD (gastroesophageal reflux disease) Hyperlipemia Major depression Osteoarthritis Other retention of urine UTI (urinary tract infection) Social History Smoking/Tobacco Use Status: Former Tobacco Use Smoking risk assessment performed?: Yes Alcohol Intake: current Alcohol Intake frequency: holidays/special occasions only Substance use type: does not use Housing: [facility]dc Do you feel safe at home: Yes Do you feel safe in your relationship?: Yes Time Spent with Patient Time Spent with Patient: 45-69 minutes Time was spent: preparing to see the patient(eg.review tests), obtaining and/or reviewing separately otained hiistory, referring, communicating with other health critical care specialist, indepentently interpreting results, counseling the patient and care coordination
--- NOTE | 2022-11-25 11:35 | PT.INDS ---
PT Notes Visit Reasons: Cellulitis,ELVIRA with CKD Physical Therapy Inpatient Discharge Summary Treatment Dates: 11/20/2022 - 11/24/22 Referring Doctor:? Isaias Hathaway MD PT Orders: PT CONSULT: Eval/treat Precautions: Fall.??Contact precautions in place. Activity as tolerated. This document serves as a summary of care. No PT services were provided on this date. Patient Profile/Admitting Diagnosis:? Shivam is a 72-year-old male who presented [facility] the ED [facility] due to worsening left leg pain, redness, and swelling.? Patient is admitted for management of cellulitis of left leg, acute kidney injury, chronic kidney disease, venous insufficiency, and uncontrolled type 2 diabetes mellitus. He required ICU level of care on 11/19/2022 due to caridac event and is back to [facility] surg level of care. Re-evalaution for PT was made for continued rehabilitation of functional deficits. Patient participated in 5 sessions of PT intervention over the course of 5 days. He requires transition to SNF for continued rehabilitation. Social History/Home Situation: Has been a resident of SNF for the past 6 months now.? Able to walk at least 30 feet using front wheeled walker in the hallway of SNF.? Equipment Owned/DME: W/C,? FWW Subjective: none obtained ? Objective: ROM: Right Upper Extremity: ? Shoulder Flexion WFL. Shoulder abduction WFL. Elbow flexion WFL. Wrist flexion WFL. Functional opening and closing of hand WFL. Left Upper Extremity:? Shoulder Flexion WFL. Shoulder abduction WFL. Elbow flexion WFL. Wrist flexion WFL. Functional opening and closing of hand WFL. Right Lower Extremity: Hip flexion lacks the last 50% of AROM. Hip abduction lacks the last 50% of AROM. Knee flexion 45 to 90 degrees. Ankle dorsiflexion has less than 25% of available AROM. Ankle plantarflexion has less than 25% of available AROM. Left Lower Extremity: Hip flexion lacks the last 50% of AROM. Hip abduction lacks the last 50% of AROM. Knee flexion 45 to 90 degrees. Ankle dorsiflexion has less than 25% of available AROM. Ankle plantarflexion has less than 25% of available AROM. Strength: Right Upper Extremity: Shoulder flexors 4-/5. Shoulder abductors 4-/5. Elbow flexors 4-/5. Elbow extensors 4-/5. Appeals Analyst strong. Left Upper Extremity: Shoulder flexors 4-/5. Shoulder abductors 4-/5. Elbow flexors 4-/5. Elbow extensors 4-/5. Appeals Analyst strong. Right Lower Extremity: Hip flexors 2-/5. Hip abductors 2-/5. Knee flexors 2-/5. Knee extensors 2-/5. Ankle dorsiflexors 2-/5. Ankle plantarflexors 2-/5. Left Lower Extremity: Hip flexors 2-/5. Hip abductors 2-/5. Knee flexors 2-/5. Knee extensors 2-/5. Ankle dorsiflexors 2-/5. Ankle plantarflexors 2-/5. ?BED MOBILITY/TRANSFERS?Sit-stand: Mod x1 ?Stand-sit: CGA with verbal and tactile cues ?Bed-Chair: CGA with verbal and tactile cues ?Chair-bed: CGA with verbal and tactile cues ? GAIT ?Assistive Device: Standard bariatric walker (no wheels)?Weight bearing: full ?Assist: CGA x2, wheelchair follow, assist with IV pole and Rodney catheter management. ?Distance:? 5 feet, seated rest, 7 feet, seated rest, 3 feet. ?Deviation: Extremely short step length. Stooped posture.? ? Balance: Static Sitting: Normal Dynamic Sitting: Normal Static Standing: Fair Dynamic Standing: Poor ASSESSMENT: Patient participated in 5 sessions of PT intervention during the course of his acute care stay. He made significant gains in mobility, however continues to require assistance for all transfers and ambulation. He requires transition to SNF for continued rehabilitation. Goals: Goals X1 week 1. Supine-Sit independent (PROGRESSING TOWARD) 2. Sit-Supine independent (PROGRESSING TOWARD) 3. Sit-Stand independent (PROGRESSING TOWARD) 4. Stand-Sit stand by assist with FWW (PROGRESSING TOWARD) 5. Bed-Chair stand by assist with FWW (PROGRESSING TOWARD) 6. Chair-Bed stand by assist with FWW (PROGRESSING TOWARD) 7.?Stand by assist with gait on level surface with use of bariatric FWW for at least 30 feet without report of pain nor dyspnea (PROGRESSING TOWARD) 8. Fair static and dynamic standing balance/tolerance (PROGRESSING TOWARD) Plan of Care/Treatment Plan: D/C from PT in acute care setting DISCHARGE RECOMMENDATIONS: [X] Return to SNF when medically cleared by hospitalist.? Patient will benefit from long-term facility placement for continued skilled physical therapy services in order to progress mobility level, strength, and balance. TREATMENT CODE/TIME: none Thank you for the opportunity to participate in the care of this patient. Kristy Nelson, PT, DPT [facility] [place], [place]
== END 2022-11-24 15:37 | disposition skilled nursing facility (03) | DRG 603 ==
LOC: ER 06:05 → MS 07:18 → ICU 11-19 00:30 → MS 11-21 20:24
PROVIDERS: Family Medicine; Internal Medicine; Nurse Practitioner Family; Admitting Provider Family Medicine; Emergency Provider Emergency Medicine; Visit Provider Family Medicine
DX: L03.116 Cellulitis of left lower limb (principal); N17.9 Acute kidney failure, unspecified; L97.821 Non-pressure chronic ulcer of other part of left lower leg limited to breakdown of skin; R78.81 Bacteremia; I24.8 Other forms of acute ischemic heart disease; Z68.43 Body mass index [BMI] 50.0-59.9, adult; N18.9 Chronic kidney disease, unspecified; I50.9 Heart failure, unspecified; D72.829 Elevated white blood cell count, unspecified; D64.9 Anemia, unspecified; I95.9 Hypotension, unspecified; M25.531 Pain in right wrist; G89.29 Other chronic pain; K59.00 Constipation, unspecified; E11.22 Type 2 diabetes mellitus with diabetic chronic kidney disease; E87.5 Hyperkalemia; E11.65 Type 2 diabetes mellitus with hyperglycemia; Z79.84 Long term (current) use of oral hypoglycemic drugs; K21.9 Gastro-esophageal reflux disease without esophagitis; E78.5 Hyperlipidemia, unspecified; F32.9 Major depressive disorder, single episode, unspecified; R33.9 Retention of urine, unspecified; Z87.891 Personal history of nicotine dependence; B37.2 Candidiasis of skin and nail; L98.411 Non-pressure chronic ulcer of buttock limited to breakdown of skin; I27.81 Cor pulmonale (chronic); G47.33 Obstructive sleep apnea (adult) (pediatric); I49.3 Ventricular premature depolarization; E66.01 Morbid (severe) obesity due to excess calories; B96.89 Other specified bacterial agents as the cause of diseases classified elsewhere
CPT/HCPCS: 36415; 51701; 71250; 76604; 76881; 80048; 80053; 82805; 84145; 85027; 87040; 87077; 87081; 87637; 93005; 93306; 93308; 94640; 96365; 96366; 96375; 97110; 97112; 97116; 97162; 97165; 97530; 99285; 71045; 80202; 81003; 81015; 82565; 82607; 83540; 83605; 83735; 83880; 84443; 84484; 85025; 85610; 85730; 86140; 87086; 87186; 93010; 94664; 94667; 94668; 94760; 99223; 99232; 99233; 99239; 99284; 99291; J0743; J1170; J1644; J1720; J1756; J1885; J1940; J2270; J2543; J3490; J7613; J7620

== ENCOUNTER 2022-12-12 22:06 | Outpatient (REF) | payer MEDICARE, MEDICAID, SELFPAY ==
[2022-12-12 20:34] LABS: HGB 9.3 g/dL (13.5-17.5); MCH 29.1 pg (27.0-33.0); MCV 94 fL (80-95); MPV 9.6 fL (8.0-11.0); Platelet Count 305 10^3/uL (130-400); RDW 14.4 % (11.8-14.1); RDW-SD 49.1 fL; WBC 9.62 10^3/uL (4.4-10.8)
[2022-12-12 20:54] LABS: ALT 19 U/L (16-63); AST 17 U/L (15-37); Albumin 2.8 g/dL (3.4-5.0); Alkaline Phosphatase 86 U/L (46-116); Anion Gap 6.8 mmol/L (3-11); BUN 53 mg/dL (7-18); Bilirubin, Direct 0.1 mg/dL (0.0-0.2); Bilirubin, Total 0.2 mg/dL (0.2-1.0); CO2 35.2 mmol/L (21.0-32.0); CREATININE 1.7 mg/dL (0.70-1.30); Chloride 98 mmol/L (98-107); Estimated GFR 41.78 (mL/min/1.73m2); Glucose 110 mg/dL (74-106); NT-proBNP 343 pg/mL (<300); Potassium 4.1 mmol/L (3.5-5.1); Sodium 140 mmol/L (136-145); Total Protein 7.4 g/dL (6.4-8.2)
== END 2022-12-12 22:07 | disposition home or self-care (01) ==
LOC: LBN 22:06
PROVIDERS: Visit Provider Physician Assistant
DX: J44.9 Chronic obstructive pulmonary disease, unspecified (principal)
CPT/HCPCS: 80048; 80076; 85027; 83880

== ENCOUNTER 2023-01-23 02:35 | Outpatient (REF) | payer MEDICARE, MEDICAID, SELFPAY | END 2023-01-23 02:36 | disposition home or self-care (01) | LOC: LBN 02:35 | PROVIDERS: Visit Provider Family Medicine | DX: L03.116 Cellulitis of left lower limb (principal) | CPT/HCPCS: 87077; 87070; 87186; 87205 ==

== ENCOUNTER 2023-02-21 09:05 | Outpatient (REF) | payer MEDICARE, MEDICAID, SELFPAY ==
[2023-02-21 09:38] LABS: Abs Immature Grans 0.07 10^3/uL (0.0-0.06); Absolute Basophil Count 0.04 10^3/uL (0.0-0.2); Absolute Eosinophil Count 0.41 10^3/uL (0.0-0.7); Absolute Lymphocyte Count 1.16 10^3/uL (1.2-3.4); Absolute Monocyte Count 0.94 10^3/uL (0.1-0.8); Absolute Neutrophil Count 7.71 10^3/uL (1.2-6.7); Basophils % 0.4; HCT 28.3 % (40.0-50.0); HGB 8.6 g/dL (13.5-17.5); Immature Grans % 0.7; Lymphocytes % 11.2; MCH 28.8 pg (27.0-33.0); MCHC 30.4 % (32.0-36.0); MCV 95 fL (80-95); Monocytes % 9.1; Neutrophils % 74.6; Platelet Count 301 10^3/uL (130-400); RBC 2.99 10^6/uL (4.36-5.78); RDW 12.9 % (11.8-14.1); RDW-SD 44.4 fL; WBC 10.33 10^3/uL (4.4-10.8)
[2023-02-21 09:39] LABS: BUN 34 mg/dL (7-18); C-Reactive Protein 6.16 mg/dL (0.0-0.3); CREATININE 1.7 mg/dL (0.70-1.30); Calcium 8.7 mg/dL (8.5-10.1); Chloride 99 mmol/L (98-107); Estimated GFR 41.78 (mL/min/1.73m2); Glucose 146 mg/dL (74-106); Potassium 4.5 mmol/L (3.5-5.1); Sodium 140 mmol/L (136-145)
[2023-02-21 09:45] LABS: ESR 38 mm/hr (0-20)
== END 2023-02-21 09:06 | disposition home or self-care (01) ==
LOC: LBO 09:05
PROVIDERS: PCP Family Medicine; Visit Provider Nurse Practitioner Adult Health
DX: L03.116 Cellulitis of left lower limb (principal)
CPT/HCPCS: 80048; 85652; 85025; 86140

== ENCOUNTER 2023-04-09 19:10 | Outpatient (REF) | payer MEDICARE, MEDICAID, SELFPAY ==
[2023-04-09 20:19] LABS: Anion Gap 1.8 mmol/L (3-11); BUN 42 mg/dL (7-18); CO2 37.2 mmol/L (21.0-32.0); CREATININE 1.8 mg/dL (0.70-1.30); Calcium 8.3 mg/dL (8.5-10.1); Chloride 100 mmol/L (98-107); Estimated GFR 39.01 (mL/min/1.73m2); Glucose 160 mg/dL (74-106); Magnesium 1.8 mg/dL (1.8-2.4); Potassium 4.5 mmol/L (3.5-5.1); Sodium 139 mmol/L (136-145); Vitamin B12 736 pg/mL (193-986)
== END 2023-04-09 19:11 | disposition home or self-care (01) ==
LOC: LBN 19:10
PROVIDERS: PCP Family Medicine; Visit Provider Family Medicine
DX: E53.8 Deficiency of other specified B group vitamins (principal); I50.9 Heart failure, unspecified; R60.0 Localized edema
CPT/HCPCS: 80048; 82607; 83735

== ENCOUNTER 2023-06-15 18:12 | Outpatient (REF) | payer MEDICARE, MEDICAID, SELFPAY ==
[2023-06-15 17:34] LABS: Hemoglobin A1C 6.6 % (<5.7)
[2023-06-15 17:35] LABS: ALT 20 U/L (16-63); AST 15 U/L (15-37); Albumin 3.2 g/dL (3.4-5.0); Alkaline Phosphatase 94 U/L (46-116); Anion Gap 4.4 mmol/L (3-11); BUN 42 mg/dL (7-18); Bilirubin, Total 0.2 mg/dL (0.2-1.0); CO2 40.6 mmol/L (21.0-32.0); CREATININE 1.7 mg/dL (0.70-1.30); Calcium 8.8 mg/dL (8.5-10.1); Chloride 97 mmol/L (98-107); Estimated GFR 41.78 (mL/min/1.73m2); Glucose 117 mg/dL (74-106); Sodium 142 mmol/L (136-145)
== END 2023-06-15 18:13 | disposition home or self-care (01) ==
LOC: LBN 18:12
PROVIDERS: PCP Family Medicine; Visit Provider Family Medicine
DX: E11.9 Type 2 diabetes mellitus without complications (principal); M62.81 Muscle weakness (generalized); I50.9 Heart failure, unspecified
CPT/HCPCS: 80053; 83036

== ENCOUNTER 2023-07-12 09:18 | Emergency (ER) | payer MEDICARE, MEDICAID, SELFPAY ==
[2023-07-12] VITALS (9 sets, daily range): BP systolic 128; BP diastolic 69; PULSE 65–73; RESP 4–22; TEMP 36.7; O2SAT 89–96
--- NOTE | 2023-07-12 09:15 | RT.EKG_ITS ---
APPROVED REPORT Exam: Resting ECG Reason for Exam: sob, hypoxic Patient Location: E HR:71 bpm ECG Measurements Heart Rate 71 AXIS VA 175 P 114 QRSd 164 QRS -2 QT 420 T -27 QTc 456 Conclusion Sinus rhythm...normal P axis, V-rate 60- 99 Right bundle branch block...QRSd>120, terminal axis(90,270) Physician: RBBB, no stemi, unchanged from prior ekg, ST abnormality in III and AVF but this is unchan ged compared to prior
--- NOTE | 2023-07-12 09:30 | W.ED.GENAD ---
Discharge Plan Disposition Patient Disposition: Transfer-Acute Inpatient Care Specific Acute Inpt Facility: [facility] Condition: Serious Discharge Details Chief Complaint: RespSymp Clinical Impression: Acute kidney injury, Urinary tract infection, Acute respiratory failure with hypoxia and hypercarbia, Non-ST elevation [place] (NSTEMI), Acute hyperkalemia Primary Care Provider: Mica Barnard ED Provider: Paolo Wang Home Meds and New Rx's Prescriptions: No Action furosemide 80 mg tablet 100 mg PO BID ondansetron HCl 4 mg tablet 4 mg PO Q6H PRN Qty: 30 2RF oxycodone 5 mg tablet 5 mg PO Q6H PRN Vicks Vaporub 4.7-1.2-2.6 % ointment 1 applic topical TID PRN Artificial Tears (cmc) 1 % drops 1 drp ophthalmic (eye) TID PRN metoprolol succinate 50 mg tablet extended release 24 hr 50 mg PO DAILY buspirone 5 mg tablet 5 mg PO DAILY acetaminophen 500 mg Tablet 500 mg PO BID atorvastatin 80 mg Tablet 80 mg PO QHS docusate sodium [Colace] 100 mg Capsule 100 mg PO DAILY bisacodyl [Dulcolax (bisacodyl)] 10 mg Suppository 10 mg NM DAILY PRN duloxetine 60 mg Capsule,Delayed Release(Dr/Ec) 60 mg PO DAILY ferrous sulfate 325 mg (65 mg iron) Tablet 325 mg PO DAILY finasteride 5 mg Tablet 5 mg PO DAILY guaifenesin [Latoya-Tussin] 100 mg/5 mL Liquid 200 mg PO Q4H PRN loperamide [Imodium A-D] 2 mg Tablet 2 mg PO Q4H PRN Rx Instructions: administer after each loose stool until symptoms controlled; do not exceed 8 mg per 24 hrs ipratropium-albuterol 0.5 mg-3 mg(2.5 mg base)/3 mL Solution For Nebulization 3 ml INHALATION Q6H PRN lisinopril 20 mg Tablet 20 mg PO DAILY magnesium chloride 64 mg Tablet Extended Release 128 mg PO DAILY melatonin 5 mg Tablet 5 mg PO HS PRN metformin 1,000 mg Tablet 1,000 mg PO BID magnesium hydroxide [Milk of Magnesia] 400 mg/5 mL Suspension 400 mg PO DAILY PRN PRN polyethylene glycol 3350 [Miralax] 17 gram Powder In Packet 17 g PO DAILY nitroglycerin 0.4 mg Tablet, Sublingual 0.4 mg SUBLINGUAL Q5-15M PRN Rx Instructions: do not exceed 3 doses per episode omeprazole 20 mg Tablet,Delayed Release (Dr/Ec) 20 mg PO DAILY budesonide-formoterol [Symbicort] 160-4.5 mcg/actuation Hfa Aerosol Inhaler 2 puff INHALATION BID tamsulosin 0.4 mg Capsule 0.8 mg PO DAILY triamcinolone acetonide 0.1 % Cream 1 applic TOPICAL BID vit [id number] no.15 [id number] rro-gga-gd-mg Capsule 1,000 cap PO DAILY diclofenac sodium 3 % Gel 1 applic topical QID Qty: 100 0RF ammonium lactate 12 % Lotion 1 applic topical BID Qty: 400 0RF HPI General Date/Time Provider Initiated Documentation: 07/12/23 09:22. HPI Narrative: 72-year-old male with a past medical history of morbid obesity, chronic kidney disease, congestive heart failure, type 2 diabetes, who currently resides at [facility], who presents today for evaluation of shortness of breath. Per health and rehab the patient is chronically on 1.5 L of oxygen, patient states that for the last 2 to 3 weeks he has been short of breath but actually to me states that he has been feeling better than normal. Health and rehab reported that this morning he was 57% on room air, he was started on 10 L of oxygen, EMS was called, and the patient was brought here. When EMS arrived the patient was 98%, and continued at that state here. Patient denies any chest pain or other complaints. He denies any cough or fever or chills. No other modifying factors. Related Data Home Medications Medication Instructions Recorded Confirmed acetaminophen 500 mg tablet 500 mg PO BID 11/15/22 07/12/23 atorvastatin 80 mg tablet 80 mg PO QHS 11/15/22 07/12/23 bisacodyl 10 mg rectal suppository 10 mg NM DAILY PRN 11/15/22 07/12/23 (Dulcolax (bisacodyl)) budesonide-formoterol HFA 160 2 puff inhalation BID 11/15/22 07/12/23 mcg-4.5 mcg/actuation aerosol inhaler (Symbicort) docusate sodium 100 mg capsule 100 mg PO DAILY 11/15/22 07/12/23 (Colace) duloxetine 60 mg capsule,delayed 60 mg PO DAILY 11/15/22 07/12/23 release ferrous sulfate 325 mg (65 mg 325 mg PO DAILY 11/15/22 07/12/23 iron) tablet finasteride 5 mg tablet 5 mg PO DAILY 11/15/22 07/12/23 guaifenesin 100 mg/5 mL oral 200 mg PO Q4H PRN 11/15/22 07/12/23 liquid (Latoya-Tussin) ipratropium 0.5 mg-albuterol 3 mg 3 ml inhalation Q6H PRN 11/15/22 07/12/23 (2.5 mg base)/3 mL nebulization soln lisinopril 20 mg tablet 20 mg PO DAILY 11/15/22 07/12/23 loperamide 2 mg tablet (Imodium 2 mg PO Q4H PRN 11/15/22 07/12/23 A-D) magnesium chloride 64 mg 128 mg PO DAILY 11/15/22 07/12/23 tablet,extended release magnesium hydroxide 400 mg/5 mL 400 mg PO DAILY PRN PRN 11/15/22 07/12/23 oral suspension (Milk of Magnesia) melatonin 5 mg tablet 5 mg PO HS PRN 11/15/22 07/12/23 metformin 1,000 mg tablet 1,000 mg PO BID 11/15/22 07/12/23 nitroglycerin 0.4 mg sublingual 0.4 mg sublingual Q5-15M PRN 11/15/22 07/12/23 tablet omeprazole 20 mg tablet,delayed 20 mg PO DAILY 11/15/22 07/12/23 release polyethylene glycol 3350 17 gram 17 g PO DAILY 11/15/22 07/12/23 oral powder packet (Miralax) tamsulosin 0.4 mg capsule 0.8 mg PO DAILY 11/15/22 07/12/23 triamcinolone acetonide 0.1 % 1 applic topical BID 11/15/22 07/12/23 topical cream vit [id number] no.15 500 1,000 cap PO DAILY 11/15/22 07/12/23 mcg-400 mcg-10 mg-400 mg capsule ammonium lactate 12 % lotion 1 applic topical BID #400 grams 11/24/22 07/12/23 diclofenac sodium 3 % topical gel 1 applic topical QID #100 grams 11/24/22 07/12/23 furosemide 80 mg tablet 100 mg PO BID 12/09/22 07/12/23 ondansetron HCl 4 mg tablet 4 mg PO Q6H PRN #30 tabs 12/09/22 07/12/23 camphor 4.7 %-eucalyptus oil 1.2 1 applic topical TID PRN 03/17/23 07/12/23 %-menthol 2.6 % topical ointment (Vicks Vaporub) carboxymethylcellulose sodium 1 % 1 drp ophthalmic (eye) TID PRN 03/17/23 07/12/23 eye drops (Artificial Tears (carboxymethylcellulose)) oxycodone 5 mg tablet 5 mg PO Q6H PRN 03/17/23 07/12/23 metoprolol succinate 50 mg 50 mg PO DAILY 03/18/23 07/12/23 tablet,extended release 24 hr buspirone 5 mg tablet 5 mg PO DAILY 07/12/23 07/12/23 Previous Rx's Medication Instructions Recorded ammonium lactate 12 % lotion 1 applic topical BID #400 grams 11/24/22 diclofenac sodium 3 % topical gel 1 applic topical QID #100 grams 11/24/22 ondansetron HCl 4 mg tablet 4 mg PO Q6H PRN #30 tabs 12/09/22 Allergies Allergy/AdvReac Type Severity Reaction Status Date / Time No Known Allergies Allergy Unverified 07/12/23 09:30 General YESY: 3 Review of Systems All systems reviewed & are unremarkable except as noted in HPI and below Exam Narrative Exam Narrative: 1.Const: Well-nourished, Well-developed, appearing stated age 2.Eyes: PERRL, no conjunctival injection, and symmetrical lids. 3.ENT: Atraumatic external nose and ears. Moist MM. Neck: Symmetric, trachea midline, No thyromegaly. 4.CVS: +S1/S2, No murmurs or gallops. Peripheral pulses 2+ and equal in all extremities. Brisk capillary refill in all extremities. 5.RESP: Unlabored respiratory effort. Clear to auscultation bilaterally. No wheezes rales or rhonchi 6.GI: Soft, Nontender/Nondistended, No hepatosplenomegaly. No guarding or rebound. 7.MSK: Normocephalic/Atraumatic, Extremities w/o deformity or ttp No cyanosis or clubbing, Normal movement of all extremities, no pitting edema, but he does have evidence of chronic venous staining. 8.Skin: Warm, Dry. No rashes or lesions. 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 Sensation grossly intact, no focal neurologic deficits. 10.Psych: (AAO) x3. Appropriate mood and affect Course Vital Signs Vital signs: Vital Signs Pulse Oximetry 94 07/12/23 09:25 Pulse Oximetry 94 07/12/23 09:25 Oxygen Delivery Method Nasal Cannula 07/12/23 09:25 Oxygen Flow Rate 1 07/12/23 09:25 Medical Decision Making 72-year-old male with a past medical history of morbid obesity, chronic kidney disease, congestive heart failure, type 2 diabetes, who currently resides at [facility], who presents today for evaluation of shortness of breath. Per [facility] the patient is chronically on 1.5 L of oxygen, patient states that for the last 2 to 3 weeks he has been short of breath but actually to me states that he has been feeling better than normal. Health and rehab reported that this morning he was 57% on room air, he was started on 10 L of oxygen, EMS was called, and the patient was brought here. When EMS arrived the patient was 98%, and continued at that state here. Patient denies any chest pain or other complaints. He denies any cough or fever or chills. No other modifying factors. Exam demonstrates an obese male, lung sounds are relatively clear. No pitting edema of the lower extremities, clinic venous staining is noted. Patient was immediately titrated down to 1.5 L, saturating in the high 80s to low 90s. No significant dyspnea. We will evaluate for concerning etiologies, monitor closely and reassess. He has no pitting edema or tenderness in his calves, doubt DVT. No chest pain to suggest ACS or PE. Pneumonia versus CHF is on the differential. 2:00 PM Workup shows multiple abnormalities. #1 patient demonstrates white count of 15.3, chest x-ray shows questionable left basilar infiltrate, bedside POCUS shows notably enlarged heart trace pericardial effusion. Urinalysis shows UTI. Will treat with 2 g of ceftriaxone. #2 patient demonstrates respiratory acidosis with a pH of 7.29, pCO2 in the 70s, with an acute on chronic component of hypercarbic respiratory acidosis. Patient has been started on BiPAP for management of this. #3 patient has evidence of an acute kidney injury, proBNP is 10,000 however he does not show evidence of fluid overload instead he actually appears dehydrated, creatinine is 5.1 and BUN is 100. I feel that his acute kidney injury is related to overdiuresis. Additionally potassium is notably elevated at 5.7. EKG does not show any evidence of significant T wave elevations. However this is notably abnormal for him. We we will administer 5 units of IV insulin, calcium gluconate, 1 amp of D50, 3 albuterol nebulizers, and a gentle 250 cc bolus. No beds are available at [facility] a chair at this time. Will reach out to other facilities. #4 Patient also has an elevated troponin at 182, will give full dose aspirin. Symptoms appear consistent with demand ischemia related to multiple problems.. No evidence of STEMI on EKG. 2:57 PM [facility], discussed the case with us. She agrees for transfer. Patient will be transferred. Repeat labs have been drawn after interventions, pH is now improved to 7.32, pCO2 still elevated at 63, after interventions potassium is now 4.8, BUN 97, creatinine 4.9. Initial troponin was 182, repeat troponin 254, no exponential increase. Patient remains hemodynamically stable. He received aspirin. Patient will be transferred. I have extensively reviewed the treatment plan with the patient. I have addressed all patient concerns at this time. I have also discussed the plan with the admitting physician and they agree with the current assessment and plan and have agreed to assume responsibility for the patient. All parties demonstrate verbal understanding and agreement with our assessment and plan at this time. The documentation in this chart was dictated using [employer], a [employer] dictation software. Please excuse any dictation errors. Patient's CODE STATUS is DNR/DNI on paperwork. At time of transfer the patient was reassessed and continued to demonstrate No signs of acute respiratory distress requiring intubation, hemodynamic instability requiring pressor support, or rapidly declining mental status. FINDINGS: Examination limited by patient body habitus and positioning. MEDIASTINUM: Normal. HEART: The heart appears enlarged. PULMONARY VASCULATURE: Normal. LUNGS: The right lung appears clear. There is poor visualization of the lateral aspect of the left lower lobe and infiltrate cannot be excluded. PLEURAL SPACE: No pleural effusion or pneumothorax. BONE:Within normal limits for the patient's age. OTHER FINDINGS:Normal. IMPRESSION: 1. Examination limited by patient body habitus and patient positioning. 2. Question of a left basilar infiltrate. A PA and lateral chest x-ray within the department may be considered for better characterization. Quality:[facility] Health Related Social Needs: No Data to Display Critical Care Time Critical Care Time Critical Care Time: Yes Total Critical Care Time: 120 Attestation: Upon my evaluation, this patient had a high probability of imminent or life-threatening deterioration, which required my direct attention, intervention, and personal management. I have personally provided 120 minutes of critical care time exclusive of time spent on separately billable procedures. Time includes review of laboratory data, radiology results, discussion with consultants, and monitoring for potential decompensation. Interventions were performed as documented. [facility] All Active Problems (Updated 07/12/23 @ 15:01 by Paolo Wang DO) Acute hyperkalemia (Acute) Non-ST elevation WA (NSTEMI) (Acute) Acute respiratory failure with hypoxia and hypercarbia (Acute) Urinary tract infection (Acute) Acute kidney injury (Acute) CKD stage 3 due to type 2 diabetes mellitus (Acute) Ambulatory dysfunction (Acute) Advanced care planning/counseling discussion (Acute) Constipation (Acute) Chronic pain (Chronic) Palliative care encounter (Acute) Depression due to physical illness (Acute) Right ventricular dilation (Acute) Anemia (Chronic) CHF (congestive heart failure) (Chronic) Venous insufficiency (Acute) Chronic kidney disease (CKD) (Chronic) Chronic pain of right wrist (Acute) 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) Cellulitis of left leg (Acute) Medical History Major depression Other retention of urine Hyperlipemia UTI (urinary tract infection) GERD (gastroesophageal reflux disease) Osteoarthritis Social History Smoking/Tobacco Use Status: Former Tobacco Use Smoking risk assessment performed?: Yes Alcohol Intake: current Alcohol Intake frequency: holidays/special occasions only Substance use type: does not use Housing: group home Do you feel safe at home: Yes Do you feel safe in your relationship?: Yes POCUS Exam (ED) Limited Cardiac Exam DATE OF EXAM: 07/12/23 TIME OF EXAM: 11:25 PROVIDER THAT PERFORMED THE STUDY: Paolo Wang IS THIS A REPEAT EXAM DURING THIS ENCOUNTER: no REASON FOR EXAM: Dyspnea VISUALIZED STRUCTURES: Left ventricle VIEW OBTAINED: Parasternal long-axis and Parasternal short-axis PERTINENT FINDINGS/IMPRESSION: LV dysfunction :moderate DIFFERENTIAL DIAGNOSES: Technically difficult exam, notably dilated left ventricle and heart. Trace pericardial effusion. Unable to fully visualize the entire cardiac window Exam complete
[2023-07-12 10:07] LABS: Abs Immature Grans 0.17 10^3/uL (0.0-0.06); Absolute Monocyte Count 1.51 10^3/uL (0.1-0.8); Absolute Neutrophil Count 12.64 10^3/uL (1.2-6.7); Basophils % 0.3; Eosinophils % 1.3; HCT 25.9 % (40.0-50.0); HGB 8.3 g/dL (13.5-17.5); Immature Grans % 1.1; Lymphocytes % 4.8; MCH 28.9 pg (27.0-33.0); MCV 90 fL (80-95); Monocytes % 9.9; Neutrophils % 82.6; Platelet Count 273 10^3/uL (130-400); RBC 2.87 10^6/uL (4.36-5.78); RDW 13.9 % (11.8-14.1); RDW-SD 46.7 fL
[2023-07-12 10:19] LABS: BE (Venous) 8 mmol/L (-2-3); HCO3 (Venous) 34 mmol/L (23-28); O2 Sat (Venous) 58 %; TCO2 (Venous) 32 mmol/L (24-29); pH (Venous) 7.29 (7.31-7.41); pO2 (Venous) 34 mmHg
[2023-07-12 10:23] LABS: pCO2 (Venous) 71 mmHg (41-51)
[2023-07-12 10:24] LABS: Bilirubin Negative (Negative); Blood Moderate (Negative); Clarity Cloudy (Clear); Glucose Negative (Negative); Ketones Negative (Negative); Leukocyte Esterase Moderate (Negative); Nitrite Negative (Negative); Urobilinogen 0.2 mg/dL (Up to 0.2)
[2023-07-12 10:39] LABS: Bacteria Many HPF (Negative); C & S Indicated? Yes; Casts 3-5 Fine Granular LPF (Negative); Crystals Negative HPF (Negative); Epithelial Cells Few HPF (Negative); Mucus Negative (Negative); RBC 20-50 HPF (0-2); WBC >50 HPF (0-5)
[2023-07-12 10:45] LABS: ALT 28 U/L (16-63); AST 39 U/L (15-37); Alkaline Phosphatase 133 U/L (46-116); Anion Gap 5.3 mmol/L (3-11); Bilirubin, Total 0.3 mg/dL (0.2-1.0); CO2 34.7 mmol/L (21.0-32.0); Calcium 8.3 mg/dL (8.5-10.1); Chloride 94 mmol/L (98-107); Estimated GFR 11.18 (mL/min/1.73m2); Glucose 119 mg/dL (74-106); Potassium 5.7 mmol/L (3.5-5.1); Sodium 134 mmol/L (136-145); Total Protein 6.6 g/dL (6.4-8.2)
[2023-07-12 10:47] LABS: Absolute Basophil Count 0.05 10^3/uL (0.0-0.2); Absolute Lymphocyte Count 0.73 10^3/uL (1.2-3.4)
[2023-07-12 10:50] LABS: BUN 100 mg/dL (7-18); CREATININE 5.1 mg/dL (0.70-1.30); Troponin I 182 ng/L (< or =60)
[2023-07-12 10:51] LABS: NT-proBNP 10886 pg/mL (<300)
[2023-07-12 10:58] LABS: Diff Comment Diff Reviewed; RBC Morphology Normal
--- NOTE | 2023-07-12 11:00 | DI.RAD_ITS ---
Exam(s) XR PORTABLE CHEST AP EXAM: XR PORTABLE CHEST AP CLINICAL HISTORY: sob TECHNIQUE: 2D digital imaging was performed of the chest. One image was obtained. An AP view was ob tained. COMPARISON: CR,XR XR PORTABLE CHEST AP from 11/22/2022 FINDINGS: Examination limited by patient body habitus and positioning. MEDIASTINUM: Normal. HEART: The heart appears enlarged. PULMONARY VASCULATURE: Normal. LUNGS: The right lung appears clear. There is poor visualization of the lateral aspect of the left l ower lobe and infiltrate cannot be excluded. PLEURAL SPACE: No pleural effusion or pneumothorax. BONE:Within normal limits for the patient's age. OTHER FINDINGS:Normal. IMPRESSION: 1. Examination limited by patient body habitus and patient positioning. 2. Question of a left basilar infiltrate. A PA and lateral chest x-ray within the department may be considered for better characterization. DATA REPOSITORY: RADIATION DOSE DELIVERED:
[2023-07-12] MEDS: Albuterol 2.5 MG/3 ML INH SOLN VIAL 7.5 MG UPD (11:03)
[2023-07-12] MEDS: Lidocaine 2% Jelly 6 ML SYR (11:20)
[2023-07-12] MEDS: CALCIUM GLUCONATE in NaCl 1 GM/50 ML BAG IVPB (11:40)
[2023-07-12] MEDS: Insulin REGULAR-Human 100 UNITS/ML UNIT IV (11:49)
[2023-07-12] MEDS: cefTRIAXone 2 GM/50 ML BAG IVPB (11:50)
[2023-07-12] MEDS: Dextrose 50%-Water 25 GM/50 ML SYR IVP (11:50)
[2023-07-12 12:34] LABS: BE (Venous) 6 mmol/L (-2-3); HCO3 (Venous) 33 mmol/L (23-28); O2 Sat (Venous) 70 %; TCO2 (Venous) 32 mmol/L (24-29); pH (Venous) 7.32 (7.31-7.41); pO2 (Venous) 39 mmHg
[2023-07-12 12:36] LABS: pCO2 (Venous) 63 mmHg (41-51)
[2023-07-12 12:51] LABS: Anion Gap 6.7 mmol/L (3-11); CO2 33.3 mmol/L (21.0-32.0); Calcium 8.1 mg/dL (8.5-10.1); Chloride 94 mmol/L (98-107); Estimated GFR 11.73 (mL/min/1.73m2); Glucose 158 mg/dL (74-106); Potassium 4.8 mmol/L (3.5-5.1); Sodium 134 mmol/L (136-145)
[2023-07-12 12:58] LABS: BUN 97 mg/dL (7-18)
[2023-07-12 12:59] LABS: CREATININE 4.9 mg/dL (0.70-1.30)
[2023-07-12 13:39] LABS: Troponin I 254 ng/L (< or =60)
[2023-07-12] MEDS: ACETAMINOPHEN 1,000 MG/100 ML BTL 400 MG IVPB (13:58)
[2023-07-12] MEDS: MORPHine 4 MG/ML SYR 2 MG IVP (13:59)
[2023-07-12] MEDS: Aspirin 325 MG TAB PO (14:55)
--- NOTE | 2023-07-12 15:00 | RT.EKG_ITS ---
APPROVED REPORT Exam: Resting ECG Reason for Exam: sob Patient Location: E HR:61 bpm ECG Measurements Heart Rate 61 AXIS OR 173 P -23 QRSd 172 QRS -8 QT 434 T -26 QTc 438 Conclusion Sinus rhythm...normal P axis, V-rate 60- 99 Right bundle branch block...QRSd>120, terminal axis(90,270) Physician: no stemi, RBBB, unchanged from prior ekg
--- NOTE | 2023-07-15 09:20 | NUR.NOTE ---
Patient transferred to [facility]. Urine culture result faxed to [facility]. Dr. Wang is aware. . . Nursing Note:
== END 2023-07-12 16:45 | disposition short-term general hospital (02) ==
PROVIDERS: Emergency Provider Student in an Organized Health Care Education/Training Program; PCP Family Medicine
DX: J96.01 Acute respiratory failure with hypoxia (principal); I21.4 Non-ST elevation (NSTEMI) myocardial infarction; N17.9 Acute kidney failure, unspecified; N39.0 Urinary tract infection, site not specified; J96.02 Acute respiratory failure with hypercapnia; E87.5 Hyperkalemia; E66.01 Morbid (severe) obesity due to excess calories; E11.22 Type 2 diabetes mellitus with diabetic chronic kidney disease; N18.30 Chronic kidney disease, stage 3 unspecified; I50.9 Heart failure, unspecified; Z99.81 Dependence on supplemental oxygen; Z66 Do not resuscitate; Z68.42 Body mass index [BMI] 45.0-49.9, adult; Z79.84 Long term (current) use of oral hypoglycemic drugs; Z79.899 Other long term (current) drug therapy
CPT/HCPCS: 51702; 80048; 80053; 82805; 82962; 87077; 93005; 93308; 96365; 96366; 96367; 96375; 99291; 99292; 71045; 81003; 81015; 83880; 84484; 85025; 87086; 87186; 93010; 94640; J0131; J0613; J0696; J1815; J2270; J7613

== ENCOUNTER 2023-07-27 18:40 | Outpatient (REF) | payer SELFPAY ==
[2023-07-27 19:02] LABS: Hemoglobin A1C 6.7 % (<5.7)
== END 2023-07-27 18:41 | disposition home or self-care (01) ==
LOC: LBN 18:40
PROVIDERS: PCP Family Medicine; Visit Provider Family Medicine
DX: E11.9 Type 2 diabetes mellitus without complications (principal)
CPT/HCPCS: 83036

== ENCOUNTER 2023-07-28 19:14 | Outpatient (REF) | payer SELFPAY ==
[2023-07-28 18:51] LABS: Abs Immature Grans 0.04 10^3/uL (0.0-0.06); Absolute Basophil Count 0.03 10^3/uL (0.0-0.2); Absolute Eosinophil Count 0.22 10^3/uL (0.0-0.7); Absolute Monocyte Count 1.19 10^3/uL (0.1-0.8); Absolute Neutrophil Count 6.83 10^3/uL (1.2-6.7); Basophils % 0.3 %; Eosinophils % 2.3 %; HCT 26.6 % (40.0-50.0); HGB 7.5 g/dL (13.5-17.5); Immature Grans % 0.4 %; Lymphocytes % 13.5 %; MCH 28.2 pg (27.0-33.0); MCHC 28.2 % (32.0-36.0); MCV 100 fL (80-95); MPV 9.1 fL (8.0-11.0); Monocytes % 12.4 %; Neutrophils % 71.1 %; Platelet Count 368 10^3/uL (130-400); RBC 2.66 10^6/uL (4.36-5.78); RDW 14.3 % (11.8-14.1); RDW-SD 52.2 fL; WBC 9.61 10^3/uL (4.4-10.8)
[2023-07-28 18:54] LABS: Bilirubin Negative (Negative); Blood Moderate (Negative); Clarity Turbid (Clear); Glucose Negative (Negative); Ketones Negative (Negative); Leukocyte Esterase Moderate (Negative); Nitrite Positive (Negative); Specific Gravity 1.025 (1.005-1.025); Urobilinogen 0.2 mg/dL (Up to 0.2); pH 5.5 (5-8)
[2023-07-28 18:59] LABS: C & S Indicated? C&S Done As Ordered; WBC >50 HPF (0-5)
[2023-07-28 19:01] LABS: ALT 37 U/L (16-63); AST 22 U/L (15-37); Albumin 2.2 g/dL (3.4-5.0); Alkaline Phosphatase 86 U/L (46-116); Anion Gap 2.9 mmol/L (3-11); BUN 33 mg/dL (7-18); Bilirubin, Total 0.2 mg/dL (0.2-1.0); CO2 33.1 mmol/L (21.0-32.0); CREATININE 1.9 mg/dL (0.70-1.30); Calcium 8.1 mg/dL (8.5-10.1); Chloride 106 mmol/L (98-107); Estimated GFR 36.56 (mL/min/1.73m2); Glucose 89 mg/dL (74-106); Sodium 142 mmol/L (136-145); Total Protein 6.4 g/dL (6.4-8.2)
[2023-07-28 19:05] LABS: Diff Comment RBC Morph Reviewed; Hypochromasia 2+; Polychromasia Present
[2023-07-28 19:09] LABS: Potassium 6.7 mmol/L (3.5-5.1)
== END 2023-07-28 19:15 | disposition home or self-care (01) ==
LOC: LBN 19:14
PROVIDERS: PCP Family Medicine; Visit Provider Family Medicine
DX: R79.89 Other specified abnormal findings of blood chemistry (principal); R82.998 Other abnormal findings in urine; D64.9 Anemia, unspecified; R78.81 Bacteremia; E87.6 Hypokalemia; E11.9 Type 2 diabetes mellitus without complications
CPT/HCPCS: 80053; 87077; 81003; 81015; 85025; 87086; 87186

== ENCOUNTER 2023-07-29 01:24 | Outpatient (REF) | payer SELFPAY ==
[2023-07-29 01:34] LABS: Anion Gap 2.8 mmol/L (3-11); BUN 34 mg/dL (7-18); CO2 31.2 mmol/L (21.0-32.0); CREATININE 1.9 mg/dL (0.70-1.30); Calcium 8.1 mg/dL (8.5-10.1); Chloride 108 mmol/L (98-107); Estimated GFR 36.56 (mL/min/1.73m2); Glucose 86 mg/dL (74-106); Sodium 142 mmol/L (136-145)
[2023-07-29 01:37] LABS: Potassium 6.7 mmol/L (3.5-5.1)
== END 2023-07-29 01:25 | disposition home or self-care (01) ==
LOC: LBN 01:24
PROVIDERS: PCP Family Medicine; Visit Provider Family Medicine
DX: E87.6 Hypokalemia (principal)
CPT/HCPCS: 80048

== ENCOUNTER 2023-08-02 05:03 | Outpatient (REF) | payer SELFPAY ==
[2023-08-02 05:16] LABS: Anion Gap 4.7 mmol/L (3-11); BUN 34 mg/dL (7-18); CO2 35.3 mmol/L (21.0-32.0); CREATININE 2.1 mg/dL (0.70-1.30); Calcium 7.7 mg/dL (8.5-10.1); Chloride 104 mmol/L (98-107); Estimated GFR 32.42 (mL/min/1.73m2); Glucose 94 mg/dL (74-106); Potassium 4.3 mmol/L (3.5-5.1); Sodium 144 mmol/L (136-145)
== END 2023-08-02 05:04 | disposition home or self-care (01) ==
LOC: LBN 05:03
PROVIDERS: PCP Family Medicine; Visit Provider Family Medicine
DX: E87.1 Hypo-osmolality and hyponatremia (principal); E78.5 Hyperlipidemia, unspecified
CPT/HCPCS: 80048

== ENCOUNTER 2023-08-31 06:37 | Observation (INO) | payer MEDICARE, MEDICAID, SELFPAY ==
[2023-08-31] VITALS (38 sets, daily range): BP systolic 109–149; BP diastolic 38–112; PULSE 34–100; RESP 10–29; TEMP 36–37.1; O2SAT 90–96
--- NOTE | 2023-08-31 06:30 | RT.EKG_ITS ---
APPROVED REPORT Exam: Resting ECG Reason for Exam: Slow HR Patient Location: E HR:71 bpm ECG Measurements Heart Rate 71 AXIS IL 160 P -35 QRSd 170 QRS -14 QT 425 T -16 QTc 463 Conclusion Sinus rhythm...normal P axis, V-rate 60- 99 Ventricular bigeminy...bigeminy string>4 w/ V complexes Right bundle branch block...QRSd>120, terminal axis(90,270) Borderline ST depression, lateral leads...ST <-0.07mV, I aVL V5 V6 Physician: sinus nichole with notable PVC's. no stemi
--- NOTE | 2023-08-31 06:45 | ED.GENADUL_ITS ---
Discharge Plan Discharge Details Chief Complaint: Arrhythmia Clinical Impression: Frequent PVCs, Bradycardia Primary Care Provider: Mica Barnard ED Provider: Paolo Wang Home Meds and New Rx's Prescriptions: No Action cyanocobalamin (vitamin B-12) 1,000 mcg capsule 1,000 mcg PO DAILY hydroxyzine HCl 25 mg tablet 25 mg PO TID PRN oxycodone 5 mg tablet 2.5 mg PO Q6H PRN ondansetron HCl 4 mg tablet 4 mg PO Q6H PRN Qty: 30 2RF Vicks Vaporub 4.7-1.2-2.6 % ointment 1 applic topical TID PRN Artificial Tears (cmc) 1 % drops 1 drp ophthalmic (eye) TID PRN aspirin 81 mg tablet,delayed release (DR/EC) 81 mg PO DAILY buspirone 5 mg tablet 7.5 mg PO BID trazodone 50 mg tablet 50 mg PO DAILY acetaminophen 500 mg Tablet 500 mg PO BID atorvastatin 80 mg Tablet 80 mg PO QHS docusate sodium [Colace] 100 mg Capsule 100 mg PO DAILY bisacodyl [Dulcolax (bisacodyl)] 10 mg Suppository 10 mg CA DAILY PRN duloxetine 60 mg Capsule,Delayed Release(Dr/Ec) 60 mg PO DAILY ferrous sulfate 325 mg (65 mg iron) Tablet 325 mg PO DAILY finasteride 5 mg Tablet 5 mg PO DAILY guaifenesin [Latoya-Tussin] 100 mg/5 mL Liquid 200 mg PO Q4H PRN ipratropium-albuterol 0.5 mg-3 mg(2.5 mg base)/3 mL Solution For Nebulization 3 ml INHALATION Q6H PRN magnesium chloride 64 mg Tablet Extended Release 128 mg PO DAILY melatonin 5 mg Tablet 6 mg PO HS PRN metformin 1,000 mg Tablet 1,000 mg PO BID magnesium hydroxide [Milk of Magnesia] 400 mg/5 mL Suspension 400 mg PO DAILY PRN PRN nitroglycerin 0.4 mg Tablet, Sublingual 0.4 mg SUBLINGUAL Q5-15M PRN Rx Instructions: do not exceed 3 doses per episode omeprazole 20 mg Tablet,Delayed Release (Dr/Ec) 20 mg PO DAILY budesonide-formoterol [Symbicort] 160-4.5 mcg/actuation Hfa Aerosol Inhaler 2 puff INHALATION BID tamsulosin 0.4 mg Capsule 0.4 mg PO DAILY triamcinolone acetonide 0.1 % Cream 1 applic TOPICAL BID diclofenac sodium 3 % Gel 1 applic topical QID Qty: 100 0RF ammonium lactate 12 % Lotion 1 applic topical BID Qty: 400 0RF polyethylene glycol 3350 [Miralax] 17 gram powder in packet 17 g PO DAILY PRN HPI General Date/Time Provider Initiated Documentation: 08/31/23 07:07 . HPI Narrative: This is a 72-year-old male with a past medical history of chronic kidney disease, type 2 diabetes, congestive heart failure, who resides at [facility], who is CODE STATUS is DNR/DNI who was recently admitted and subsequently transferred to [facility] on 07/12/2023 for E. coli notable resistance UTI, acute kidney injury with hyperkalemia, NSTEMI and CHF And subsequently discharged on 07/16/2023. He presents today via EMS from [facility] for bradycardia. It was noted that the patient's heart rate was low, family was called family requested that the patient be brought to the ER for further assessment. Patient has no complaints. No vomiting, no chest pain or shortness of breath. He was on 4 L of oxygen upon his arrival which is higher than normal. He was saturating in the low 90s. He denies any burning with urination or any other complaints. He does not add anything additional to history. He does confirm that he is DNR/DNI but does want intervention aside for this. Of note review of previous urine cultures demonstrated E. coli with resistance to Cipro, levofloxacin, Bactrim, ceftriaxone and Unasyn. Related Data Home Medications Medication Instructions Recorded Confirmed acetaminophen 500 mg tablet 500 mg PO BID 11/15/22 08/31/23 atorvastatin 80 mg tablet 80 mg PO QHS 11/15/22 08/31/23 bisacodyl 10 mg rectal suppository 10 mg CA DAILY PRN 11/15/22 08/31/23 (Dulcolax (bisacodyl)) budesonide-formoterol HFA 160 2 puff inhalation BID 11/15/22 08/31/23 mcg-4.5 mcg/actuation aerosol inhaler (Symbicort) docusate sodium 100 mg capsule 100 mg PO DAILY 11/15/22 08/31/23 (Colace) duloxetine 60 mg capsule,delayed 60 mg PO DAILY 11/15/22 08/31/23 release ferrous sulfate 325 mg (65 mg 325 mg PO DAILY 11/15/22 08/31/23 iron) tablet finasteride 5 mg tablet 5 mg PO DAILY 11/15/22 08/31/23 guaifenesin 100 mg/5 mL oral 200 mg PO Q4H PRN 11/15/22 08/31/23 liquid (Latoya-Tussin) ipratropium 0.5 mg-albuterol 3 mg 3 ml inhalation Q6H PRN 11/15/22 08/31/23 (2.5 mg base)/3 mL nebulization soln magnesium chloride 64 mg 128 mg PO DAILY 11/15/22 08/31/23 tablet,extended release magnesium hydroxide 400 mg/5 mL 400 mg PO DAILY PRN PRN 11/15/22 08/31/23 oral suspension (Milk of Magnesia) melatonin 5 mg tablet 6 mg PO HS PRN 11/15/22 08/31/23 metformin 1,000 mg tablet 1,000 mg PO BID 11/15/22 08/31/23 nitroglycerin 0.4 mg sublingual 0.4 mg sublingual Q5-15M PRN 11/15/22 08/31/23 tablet omeprazole 20 mg tablet,delayed 20 mg PO DAILY 11/15/22 08/31/23 release tamsulosin 0.4 mg capsule 0.4 mg PO DAILY 11/15/22 08/31/23 triamcinolone acetonide 0.1 % 1 applic topical BID 11/15/22 08/31/23 topical cream ammonium lactate 12 % lotion 1 applic topical BID #400 grams 11/24/22 08/31/23 diclofenac sodium 3 % topical gel 1 applic topical QID #100 grams 11/24/22 08/31/23 camphor 4.7 %-eucalyptus oil 1.2 1 applic topical TID PRN 03/17/23 08/31/23 %-menthol 2.6 % topical ointment (Vicks Vaporub) carboxymethylcellulose sodium 1 % 1 drp ophthalmic (eye) TID PRN 03/17/23 08/31/23 eye drops (Artificial Tears (carboxymethylcellulose)) aspirin 81 mg tablet,delayed 81 mg PO DAILY 08/20/23 08/31/23 release buspirone 5 mg tablet 7.5 mg PO BID 08/20/23 08/31/23 trazodone 50 mg tablet 50 mg PO DAILY 08/20/23 08/31/23 cyanocobalamin (vitamin B-12) 1,000 mcg PO DAILY 08/26/23 08/31/23 1,000 mcg capsule hydroxyzine HCl 25 mg tablet 25 mg PO TID PRN 08/26/23 08/31/23 ondansetron HCl 4 mg tablet 4 mg PO Q6H PRN #30 tabs 08/26/23 08/31/23 oxycodone 5 mg tablet 2.5 mg PO Q6H PRN 08/26/23 08/31/23 polyethylene glycol 3350 17 gram 17 g PO DAILY PRN 08/26/23 08/31/23 oral powder packet (Miralax) Previous Rx's Medication Instructions Recorded ammonium lactate 12 % lotion 1 applic topical BID #400 grams 11/24/22 diclofenac sodium 3 % topical gel 1 applic topical QID #100 grams 11/24/22 ondansetron HCl 4 mg tablet 4 mg PO Q6H PRN #30 tabs 08/26/23 Allergies Allergy/AdvReac Type Severity Reaction Status Date / Time No Known Allergies Allergy Verified 08/31/23 06:45 General Stated Complaint: Arrhythmia YESY: 2 Review of Systems All systems reviewed & are unremarkable except as noted in HPI and below Exam Narrative Exam Narrative: 1.Const: Well-nourished, Well-developed, appearing stated age 2.Eyes: PERRL, no conjunctival injection, and symmetrical lids. 3.ENT: Atraumatic external nose and ears. Moist MM. Neck: Symmetric, trachea midline, No thyromegaly. 4.CVS: +S1/S2, No murmurs or gallops. Peripheral pulses 2+ and equal in all extremities. Brisk capillary refill in all extremities. 5.RESP: Unlabored respiratory effort. Mild rhonchorous breath sounds throughout 6.GI: Soft, Nondistended, No hepatosplenomegaly. No guarding or rebound. Mild generalized achiness throughout 7.MSK: Normocephalic/Atraumatic, Extremities w/o deformity or ttp No cyanosis or clubbing, Normal movement of all extremities 8.Skin: Warm, Dry. No rashes or lesions. 9.Neuro: jewish thought professor II-XII grossly intact. Sensation grossly intact, no focal neurologic deficits. 10.Psych: (AAO) x3. Appropriate mood and affect Course Vital Signs Vital signs: Vital Signs Temperature 36.4 C L 08/31/23 06:35 Pulse 41 L 08/31/23 06:35 Respiratory Rate 19 08/31/23 06:35 Blood Pressure 149/83 H 08/31/23 06:35 Pulse Oximetry 95 08/31/23 06:35 Temperature 36.4 C L 08/31/23 06:35 Pulse 41 L 08/31/23 06:35 Respiratory Rate 19 08/31/23 06:35 Respiratory Effort Normal 08/31/23 06:41 Blood Pressure 149/83 H 08/31/23 06:35 Pulse Oximetry 95 08/31/23 06:35 Oxygen Delivery Method Nasal Cannula 08/31/23 06:35 Oxygen Flow Rate 3 08/31/23 06:35 Pain Level 0 08/31/23 06:35 Lab/Test Results Lab/Test Results: 08/31/23 06:40 Blood Blood Culture - Pending 08/31/23 06:40 Blood Blood Culture - Pending Medical Decision Making This is a 72-year-old male with a past medical history of chronic kidney disease, type 2 diabetes, congestive heart failure, who resides at [facility], who is CODE STATUS is DNR/DNI who was recently admitted and subsequently transferred to [facility] on 07/12/2023 for E. coli notable resistance UTI, acute kidney injury with hyperkalemia, NSTEMI and CHF And subsequently discharged on 07/16/2023. He presents today via EMS from [facility] for bradycardia. It was noted that the patient's heart rate was low, family was called family requested that the patient be brought to the ER for further assessment. Patient has no complaints. No vomiting, no chest pain or shortness of breath. He was on 4 L of oxygen upon his arrival which is higher than normal. He was saturating in the low 90s. He denies any burning with urination or any other complaints. He does not add anything additional to history. He does confirm that he is DNR/DNI but does want intervention aside for this. Of note review of previous urine cultures demonstrated E. coli with resistance to Cipro, levofloxacin, Bactrim, ceftriaxone and Unasyn. Exam demonstrates an obese male, alert and oriented. Heart rate demonstrates significant PVCs with a baseline rate in the 30s, including PVC rate he jumps to the 70s. No evidence of STEMI. Suspect significant electrolyte abnormality. Oxygen demand slightly increased, concern for mild CHF. Will evaluate for concerning etiologies, monitor closely, reassess. Patient will be placed on pacer pads. 7:29 AM Laboratory workup shows no white count, hemoglobin 8.5 which is near his baseline. No bandemia. No significant left shift. VBG shows mild acidosis at 7.3, mildly elevated pCO2 at 76 compared to his baseline, suspect chronic retaining with an acute component. Will start a brief trial of BiPAP. Electrolytes normal, renal function normal. Magnesium is slightly low though at 1.7, and we will replace this with 2 g of mag. Pending urinalysis and chest x- ray. Patient will be signed out to my colleague Dr. Sadler for follow-up on imaging and urinalysis. Quality:[facility] Health Related Social Needs: No Data to Display Critical Care Time Critical Care Time Critical Care Time: Yes Total Critical Care Time: 45 Attestation: Upon my evaluation, this patient had a high probability of imminent or life- threatening deterioration, which required my direct attention, intervention, and personal management. I have personally provided 45 minutes of critical care time exclusive of time spent on separately billable procedures. Time includes review of laboratory data, radiology results, discussion with consultants, and monitoring for potential decompensation. Interventions were performed as maeve meyers [facility] All Active Problems (Updated 08/31/23 @ 07:32 by Paolo Wang DO) Bradycardia (Acute) Frequent PVCs (Acute) CKD stage 3 due to type 2 diabetes mellitus (Acute) Ambulatory dysfunction (Acute) Advanced care planning/counseling discussion (Acute) Constipation (Acute) Chronic pain (Chronic) Palliative care encounter (Acute) Depression due to physical illness (Acute) Right ventricular dilation (Acute) Anemia (Chronic) CHF (congestive heart failure) (Chronic) Venous insufficiency (Acute) Chronic kidney disease (CKD) (Chronic) Chronic pain of right wrist (Acute) 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) Cellulitis of left leg (Acute) Medical History Urinary retention Bacteremia Major depression Other retention of urine Hyperlipemia UTI (urinary tract infection) GERD (gastroesophageal reflux disease) Osteoarthritis Social History Smoking/Tobacco Use Status: Former Tobacco Use Smoking risk assessment performed?: Yes Alcohol Intake: current Alcohol Intake frequency: holidays/special occasions only Substance use type: does not use Housing: alf Do you feel safe at home: Yes Do you feel safe in your relationship?: Yes
[2023-08-31 06:54] LABS: BE (Venous) 12 mmol/L (-2-3); HCO3 (Venous) 38 mmol/L (23-28); O2 Sat (Venous) 63 %; TCO2 (Venous) 37 mmol/L (24-29); pO2 (Venous) 34 mmHg
[2023-08-31 06:56] LABS: Abs Immature Grans 0.04 10^3/uL (0.0-0.06); Absolute Basophil Count 0.03 10^3/uL (0.0-0.2); Absolute Eosinophil Count 0.51 10^3/uL (0.0-0.7); Absolute Lymphocyte Count 1.59 10^3/uL (1.2-3.4); Absolute Monocyte Count 1.01 10^3/uL (0.1-0.8); Absolute Neutrophil Count 6.16 10^3/uL (1.2-6.7); Basophils % 0.3 %; Eosinophils % 5.5 %; HCT 29.4 % (40.0-50.0); HGB 8.5 g/dL (13.5-17.5); Immature Grans % 0.4 %; MCH 27.2 pg (27.0-33.0); MCHC 28.9 % (32.0-36.0); MCV 94 fL (80-95); MPV 8.8 fL (8.0-11.0); Monocytes % 10.8 %; Platelet Count 426 10^3/uL (130-400); RBC 3.12 10^6/uL (4.36-5.78); RDW-SD 52.2 fL; WBC 9.34 10^3/uL (4.4-10.8)
[2023-08-31 06:57] LABS: pCO2 (Venous) 76 mmHg (41-51)
[2023-08-31 06:58] LABS: Lactate 0.6 mmol/L (0.6-1.4)
--- NOTE | 2023-08-31 07:05 | DI.RAD_ITS ---
Exam(s) XR PORTABLE CHEST AP EXAM: XR PORTABLE CHEST AP CLINICAL HISTORY: sob, hypoxic TECHNIQUE: 2D digital imaging was performed of the chest. Two images were obtained. AP views were obtained. COMPARISON: CR XR PORTABLE CHEST AP from 07/12/2023 FINDINGS: Study limited by poor opacification and monitoring equipment overlying the left hemithorax. MEDIASTINUM: Normal. HEART: Normal. PULMONARY VASCULATURE: Normal. LUNGS: There has been interval decrease in size of the infiltrate seen in the left lung base since . The right lung remains clear. PLEURAL SPACE: No pleural effusion or pneumothorax. BONE:Within normal limits for the patient's age. OTHER FINDINGS:Normal. IMPRESSION: Interval decrease in size of the left basilar infiltrate/effusion since 07/12/2023. DATA REPOSITORY: RADIATION DOSE DELIVERED:
[2023-08-31 07:08] LABS: INR 1.1 (0.9-1.1); PTT Activated 25.6 sec (23.6-32.8)
[2023-08-31 07:23] LABS: ALT 14 U/L (16-63); AST 13 U/L (15-37); Albumin 2.2 g/dL (3.4-5.0); Alkaline Phosphatase 91 U/L (46-116); Anion Gap 0.4 mmol/L (3-11); BUN 18 mg/dL (7-18); Bilirubin, Total 0.2 mg/dL (0.2-1.0); CO2 38.6 mmol/L (21.0-32.0); CREATININE 1.3 mg/dL (0.70-1.30); Calcium 8.7 mg/dL (8.5-10.1); Chloride 103 mmol/L (98-107); Estimated GFR 57.65 (mL/min/1.73m2); Glucose 90 mg/dL (74-106); Magnesium 1.7 mg/dL (1.8-2.4); NT-proBNP 2797 pg/mL (<300); Potassium 4.6 mmol/L (3.5-5.1); Sodium 142 mmol/L (136-145); TSH (W/Ref FT4) 3.76 uIU/mL (0.36-3.74); Troponin I < 50 ng/L (< or =60)
[2023-08-31 07:39] LABS: FREE T4 0.87 ng/dL (0.76-1.46)
[2023-08-31] MEDS: MAGNESIUM SULFATE 2 GM/50 ML BAG IVINF (07:46)
--- NOTE | 2023-08-31 09:00 | RT.EKG_ITS ---
APPROVED REPORT Exam: Resting ECG Reason for Exam: arrythmia Patient Location: E HR:68 bpm ECG Measurements Heart Rate 68 AXIS SC 67 P -71 QRSd 159 QRS -14 QT 416 T -28 QTc 443 Conclusion Sinus or ectopic atrial rhythm...P axis (-45,135) Multiform ventricular premature complexes...short R-R, variable morphology Right bundle branch block...QRSd>120, terminal axis(90,270)
--- NOTE | 2023-08-31 09:08 | DI.VRAD_ITS ---
PROCEDURE INFORMATION: Exam: XR Chest Exam date and time: 08/31/2023 6:55 AM Age: 72 years old Clinical indication: Shortness of breath TECHNIQUE: Imaging protocol: Radiologic exam of the chest. Views: 1 view. COMPARISON: CR XR PORTABLE CHEST AP 07/12/2023 11:19 AM FINDINGS: External pacing lead on the left Lungs: Mild left basilar opacity. Pleural spaces: No pleural effusion. No pneumothorax. Heart/Mediastinum: Grossly stable. Bones/joints: Unremarkable. IMPRESSION: Mild left basilar opacity which may represent subsegmental atelectasis versus developing pneumonia Dictated and Authenticated by: Juan Alberto Vásquez MD. Ordering:MISAEL Boone MD
[2023-08-31 09:49] LABS: BE (Venous) 12 mmol/L (-2-3); HCO3 (Venous) 38 mmol/L (23-28); O2 Sat (Venous) 68 %; TCO2 (Venous) 36 mmol/L (24-29); pH (Venous) 7.36 (7.31-7.41); pO2 (Venous) 35 mmHg
[2023-08-31 09:52] LABS: pCO2 (Venous) 67 mmHg (41-51)
[2023-08-31 10:12] LABS: Bilirubin Negative (Negative); Blood Moderate (Negative); Clarity Cloudy (Clear); Glucose Negative (Negative); Ketones Negative (Negative); Leukocyte Esterase Large (Negative); Nitrite Positive (Negative); Specific Gravity 1.015 (1.005-1.025); Urobilinogen 0.2 mg/dL (Up to 0.2)
[2023-08-31 10:23] LABS: C & S Indicated? Yes; WBC >50 HPF (0-5)
[2023-08-31] MEDS: Acetaminophen 500 MG TAB 1000 MG PO (10:42)
--- NOTE | 2023-08-31 11:23 | W.EDPROG ---
Date of service: 08/31/23 Time of Service: 11:24 Medical Decision Making I, Sumeet Sadler, took signout on this patient. In summary 72-year-old male with a past medical history of chronic kidney disease, type 2 diabetes, congestive heart failure, [facility], who is CODE STATUS is DNR/DNI who was recently admitted and subsequently transferred to [facility] on 07/12/2023 for E. coli notable resistance UTI, acute kidney injury with hyperkalemia, NSTEMI and CHF And subsequently discharged on 07/16/2023 is now presenting with bradycardia. Initially had some hypercarbia and increased oxygen requirement now resolved after short treatment of BiPAP here. Now on his home oxygen. No increased oxygen requirement otherwise. His vital signs are now stable and otherwise unremarkable with no fever. He feels well and is asymptomatic presently other than some fatigue. It looks like previously he was on metoprolol and verapamil but this was stopped at some point in the last 1 to 2 months. He had workup here that was unremarkable including normal chest x-ray and labs with normal renal function and electrolytes other than some mild hypomagnesemia. His EKG is showing a sinus bradycardia with breakthrough PVCs that are quite frequent. This is persistent on the color television console monitor and on repeat EKG. I reached out to [facility] cardiology and spoke to Ariela Childs NP and she spoke EP pretzel twisting machine operator regarding his EKGs and bradycardia with PVCs. They would recommend a repeat echocardiogram and continue telemetry as well as reintroducing his metoprolol that was previously stopped to see if this helps with his PVC burden. Certainly if something is changes or the patient becomes unstable they would like to hear about him again. Otherwise if his workup is otherwise unremarkable without events he could be discharged tomorrow with a Zio patch and outpatient cardiology follow-up with them. Will speak to the hospitalist for admission. Of note his urinalysis is concerning for possible infection and sending for culture. He has a very large scrotum and we are unable to retract the foreskin to get a straight cath sample. He does not have fever or urinary symptoms like he did when he had a urinary tract infection and I think it is much less likely that he has a UTI at this time. Will hold off on antibiotics and defer decision-making to the inpatient hospitalist as I do not think he has a UTI presently. Medical Records Medical records reviewed: Yes I reviewed the patient's medical records. Imaging Data Radiologic Study: Attestation: I personally reviewed and interpreted this imaging study as follows: Imaging: X-Ray (chest) My impression: unremarkable Radiologist's impression: unremarkable Lab Data Lab results reviewed: Yes I reviewed the patient's lab results. Labs: Hypomagnesemia but otherwise labs unremarkable ECG Data Interpretation: Sinus bradycardia with frequent PVCs. Normal VA intervals and no ST or T wave changes. Consistent with prior EKG here but certainly PVCs and bradycardia new from prior EKGs. Quality:[facility] Health Related Social Needs: No Data to Display Sign Out Sign Out Data: Sign Out Comment: Bradycardic, previously hypoxic. Oxygen has stabilized, on brief trial for BiPAP. Follow-up on chest x-ray and urinalysis. Last updated by Paolo Wang DO at 08/31/23 07:33 Discharge Plan Disposition Patient Disposition: Admit to [facility] Discharge Details Clinical Impression: Frequent PVCs, Bradycardia, Hypomagnesemia Primary Care Provider: Mica Barnard ED Provider: Sumeet Sadler Home Meds and New Rx's Prescriptions: No Action cyanocobalamin (vitamin B-12) 1,000 mcg capsule 1,000 mcg PO DAILY hydroxyzine HCl 25 mg tablet 25 mg PO TID PRN oxycodone 5 mg tablet 2.5 mg PO Q6H PRN ondansetron HCl 4 mg tablet 4 mg PO Q6H PRN Qty: 30 2RF Vicks Vaporub 4.7-1.2-2.6 % ointment 1 applic topical TID PRN Artificial Tears (cmc) 1 % drops 1 drp ophthalmic (eye) TID PRN aspirin 81 mg tablet,delayed release (DR/EC) 81 mg PO DAILY buspirone 5 mg tablet 7.5 mg PO BID trazodone 50 mg tablet 50 mg PO DAILY acetaminophen 500 mg Tablet 500 mg PO BID atorvastatin 80 mg Tablet 80 mg PO QHS docusate sodium [Colace] 100 mg Capsule 100 mg PO DAILY bisacodyl [Dulcolax (bisacodyl)] 10 mg Suppository 10 mg VA DAILY PRN duloxetine 60 mg Capsule,Delayed Release(Dr/Ec) 60 mg PO DAILY ferrous sulfate 325 mg (65 mg iron) Tablet 325 mg PO DAILY finasteride 5 mg Tablet 5 mg PO DAILY guaifenesin [Latoya-Tussin] 100 mg/5 mL Liquid 200 mg PO Q4H PRN ipratropium-albuterol 0.5 mg-3 mg(2.5 mg base)/3 mL Solution For Nebulization 3 ml INHALATION Q6H PRN magnesium chloride 64 mg Tablet Extended Release 128 mg PO DAILY melatonin 5 mg Tablet 6 mg PO HS PRN metformin 1,000 mg Tablet 1,000 mg PO BID magnesium hydroxide [Milk of Magnesia] 400 mg/5 mL Suspension 400 mg PO DAILY PRN PRN nitroglycerin 0.4 mg Tablet, Sublingual 0.4 mg SUBLINGUAL Q5-15M PRN Rx Instructions: do not exceed 3 doses per episode omeprazole 20 mg Tablet,Delayed Release (Dr/Ec) 20 mg PO DAILY budesonide-formoterol [Symbicort] 160-4.5 mcg/actuation Hfa Aerosol Inhaler 2 puff INHALATION BID tamsulosin 0.4 mg Capsule 0.4 mg PO DAILY triamcinolone acetonide 0.1 % Cream 1 applic TOPICAL BID diclofenac sodium 3 % Gel 1 applic topical QID Qty: 100 0RF ammonium lactate 12 % Lotion 1 applic topical BID Qty: 400 0RF polyethylene glycol 3350 [Miralax] 17 gram powder in packet 17 g PO DAILY PRN
--- NOTE | 2023-08-31 11:30 | DI.US_ITS ---
APPROVED REPORT EXAM: Comprehensive 2D, Doppler, and color-flow Echocardiogram Patient Location: ER Room/Bed: 1 Jukebox Route Driver: Marcello Rossi RDCS (AE) Indications: Heart failure Other Information Technically limited study due to body habitus, inability to position patient. Conclusion Technically limited study Normal left ventricular wall thickness and chamber size. Ejection fraction appears greater than 55%. No segmental wall motion abnormalities are identified Right ventricle is mildly enlarged, mildly hypokinetic Normal left atrial size. Mildly dilated right atrium Within the limits of the study there are no structural abnormalities identified Estimated right ventricular systolic pressure is 48 mmHg Mildly dilated ascending aorta Wall motion Left Ventricle The left ventricle is grossly normal size. Technically limited study due to body habitus. There is no ventricular septal defect visualized. LVEF is >55%. Right Ventricle Right ventricle is moderately dilated. Right ventricle is mildly hypokinetic. Atria The left atrium size is normal. Right atrium is mildly dilated. The interatrial septum is intact with no evidence for an atrial septal defect. Aortic Valve The aortic valve is normal in structure. Aortic valve is trileaflet. There is no aortic valvular sten osis. No aortic regurgitation is present. Mitral Valve Mitral valve is normal in structure. No evidence of mitral valve stenosis. There is no mitral valve r egurgitation noted. Tricuspid Valve The tricuspid valve is normal in structure. There is no tricuspid valve stenosis. Mild tricuspid regu rgitation. The RVSP is 47.6 mmHg. Pulmonic Valve The pulmonary valve is normal in structure. There is no pulmonic valvular stenosis. Trivial pulmonic regurgitation. Great Vessels The aortic root is normal in size. The ascending aorta is mildly dilated. Aortic arch is not well vis ualized. IVC is normal in size and collapses >50% with inspiration. Pericardium There is no pericardial effusion. 2D Dimensions Ao Root d 3.81 cm M: 3.1 - 3.7 Ao Asc Diam d 3.68 cm M: 2.6 - 3.4 M-Mode TAPSE 3.20 cm (M/F) >1.7 Auto EF LV EDV A4C 285.0 mL LV EDV A2C 172.7 mL LV EDV BP LV ESV A4C 155.7 mL LV ESV A2C 86.4 mL LV ESV BP LVEF(%) A4C 45.4 % LVEF(%) A2C 50.0 % LVEF(%) BP LV SV A4C 129.3 ml LV SV A2C 86.3 ml LV SV BP LV CO A4C 8.4 L/min LV CO A2C 5.5 L/min LV CO BP HR A4C 64.63 BPM HR A2C 64.29 BPM LV EDV Index (BP) LA Volume LA Length A4C 7.4 cm LA Length A2C 7.0 cm LA Area A4C s 23.42 cm2 LA Area A2C s 25.90 cm2 LA Vol A4C A-L 62.58 mL LA Vol A2C A-L 81.56 mL LA Vol Biplane A-L 73.7 mL LA Vol/BSA A4C A-L LA Vol/BSA A2C A-L LA Vol/BSA BP A-L 29.1 mL/m2 LA Vol A4C MOD 61.9 mL LA Vol A2C MOD 79.1 mL LA Vol BP MOD 72.1 mL RA Volume RA Area A4C 25.2 cm2 RA ESV A4C (A-L) 79.2mL RA Vol/BSA A4C A-L RA Length A4C 6.8 cm RA ESV A4C (MOD) 79.4mL LV Diastology MV E' medial 0.082 (>0.07 m/s) MV E Vmax 0.98 (0.4-1.3 m/s) MV E' lateral 0.108 (>0.1 m/s) Aortic Valve AoV Vmax 1.68 m/s LVOT Vmax 0.86 m/s AoV Peak Grad 11.3 mmHg LVOT Peak Grad 2.9 mmHg AoV Area (Vmax) 1.47 cm2 LVOT VTI 0.151 m AoV VTI 0.387 m LVOT Mean Grad 1.2 mmHg AoV Mean Gabe. 1.18 m/s LVOT SV 43.54 mL AoV Mean Grad 6.3 mmHg LVOT Diam s 1.90 cm AoV Area (VTI) 1.13 cm2 Velocity Ratio 0.51 Pulmonary Valve PV Vmax 1.10 (0.5-1.5 m/s) RVOT Vmax 0.87 m/s PV Peak Grad 4.9 mmHg RVOT Peak Gr. 3.0 mmHg PV Mean Gabe 0.74 m/s RVOT VTI 0.163 m PV Mean Grad 2.6 mmHg RVOT Mean Gr. 1.6 mmHg Tricuspid Valve RA Pressure 3.00 mmHg TR Vmax 3.34 m/s TR Peak Grad 44.6 mmHg RVSP (TR) 47.6 mmHg
--- NOTE | 2023-08-31 11:39 | HPE_ITS ---
Date of service: 08/31/23 Time of Service: 11:59 Assessment and Plan Assessment and plan (1) Bradycardia: Status: Acute Assessment and plan: -[facility] as he was noted to be bradycardic though he was asymptomatic at the time -Heart rate documented to as low as the 40s which was confirmed on EKG and telemetry -Additionally, patient has had frequent PVCs which necessitates reinitiation of Lopressor -Emergency room physician discussed case with [facility] [place] who recommended the following: -Monitor patient on telemetry overnight -Restart low-dose Lopressor 12.5 mg p.o. twice daily, first dose was given in the emergency department -Obtain echocardiogram -Discharge patient with a Zio patch -Reach back out to [facility] [place] cardiology should patient's condition worsen (2) Frequent PVCs: Status: Acute Assessment and plan: As noted above (3) Hypomagnesemia: Status: Acute Assessment and plan: 1.7 in the ED, status post repletion, will repeat level tomorrow (4) CKD stage 3 due to type 2 diabetes mellitus: Status: Acute Assessment and plan: - At baseline (5) Ambulatory dysfunction: Status: Acute Assessment and plan: - Will return to [facility] upon discharge (6) Chronic pain: Status: Chronic Assessment and plan: - Continue home regimen (7) CHF (congestive heart failure): Status: Chronic Assessment and plan: Continue home medication regimen (8) Morbid obesity: Status: Acute Assessment and plan: -recommend ongoing discussions with PCP as outpatient History of Present Illness History of Present Illness Chief Complaint: bradycardia Narrative: 68-year-old male with past medical history of CKD, NIDDM, congestive heart failure, recent hospital stay at [facility] [place] for E. coli UTI, ELVIRA with hyperkalemia, NSTEMI and acute exacerbation of CHF who has been [facility] since 07/16/2023 and presents emergency department with complaints of bradycardia. Patient was at [facility] and had been doing well when staff there noticed that the patient was bradycardic but the exact heart rate was not documented. Staff at rehab contacted the patient's family requested the patient be transferred to the emergency department for further evaluation. However, the patient had no complaints and denied any headache, lightheadedness, dizziness, chest pain, shortness of breath, nausea vomiting or diarrhea. Although patient does have chronic hypoxic respiratory failure normally on about 2 to 3 L of oxygen, he presented the emergency department with 4 L saturating in the low 90s. While in the emergency department the patient was noted as having normal vital signs with the exception of his initial heart rate which was down to 41 bpm. However, subsequent heart rates were noted to be in the mid 60s. Patient's CBC was unremarkable, troponin was negative, and CMP was within normal limits with the exception of mildly low magnesium of 1.7, proBNP of 2797 which is lower than patient's recent proBNP of over 10,000 on July 12, 2023, and a UA that showed positive nitrate large leuk esterase with greater than 50 WBCs but did have significant epithelial cells and was thought to be contaminant. However, both patient's EKG and telemetry showed sinus bradycardia with frequent PVCs. This prompted emergency room physician to reach out to [facility] [place] cardi[place] given concern for bradycardia with ectopy. They recommended repeating patient's echocardiogram and continuing on telemetry while reintroducing low-dose p.o. metoprolol to see if that helps decrease frequency of PVCs. He also stated that if patient becomes significantly or symptomatically bradycardic that we could reach out, otherwise they thought he can be monitored overnight on telemetry and potentially discharge tomorrow with a Zio patch. At which time emergency room physician paged hospitalist for admission for a patient requiring overnight observation with bradycardia and frequent PVCs. Review of Systems All systems reviewed & are unremarkable except as noted in HPI and below PFSH All Active Problems (Updated 08/31/23 @ 13:43 by Akhil Arciniega MD) Morbid obesity (Acute) Hypomagnesemia (Acute) Bradycardia (Acute) Frequent PVCs (Acute) CKD stage 3 due to type 2 diabetes mellitus (Acute) Ambulatory dysfunction (Acute) Advanced care planning/counseling discussion (Acute) Constipation (Acute) Chronic pain (Chronic) Palliative care encounter (Acute) Depression due to physical illness (Acute) Right ventricular dilation (Acute) Anemia (Chronic) CHF (congestive heart failure) (Chronic) Venous insufficiency (Acute) Chronic kidney disease (CKD) (Chronic) Chronic pain of right wrist (Acute) 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) Cellulitis of left leg (Acute) Medical History Urinary retention Bacteremia Major depression Other retention of urine Hyperlipemia UTI (urinary tract infection) GERD (gastroesophageal reflux disease) Osteoarthritis Social History Smoking/Tobacco Use Status: Former Tobacco Use Smoking risk assessment performed?: Yes Alcohol Intake: current Alcohol Intake frequency: holidays/special occasions only Substance use type: does not use Housing: [facility] Do you feel safe at home: Yes Do you feel safe in your relationship?: Yes Meds Allergies and Home Medications Allergies Allergy/AdvReac Type Severity Reaction Status Date / Time No Known Allergies Allergy Verified 08/31/23 06:45 Home Medications Medication Instructions Recorded Confirmed Type acetaminophen 500 mg tablet 500 mg PO BID 11/15/22 08/31/23 History atorvastatin 80 mg tablet 80 mg PO QHS 11/15/22 08/31/23 History bisacodyl 10 mg rectal suppository 10 mg [place] DAILY PRN 11/15/22 08/31/23 History (Dulcolax (bisacodyl)) budesonide-formoterol HFA 160 2 puff inhalation BID 11/15/22 08/31/23 History mcg-4.5 mcg/actuation aerosol inhaler (Symbicort) docusate sodium 100 mg capsule 100 mg PO DAILY 11/15/22 08/31/23 History (Colace) duloxetine 60 mg capsule,delayed 60 mg PO DAILY 11/15/22 08/31/23 History release ferrous sulfate 325 mg (65 mg 325 mg PO DAILY 11/15/22 08/31/23 History iron) tablet finasteride 5 mg tablet 5 mg PO DAILY 11/15/22 08/31/23 History guaifenesin 100 mg/5 mL oral 200 mg PO Q4H PRN 11/15/22 08/31/23 History liquid (Latoya-Tussin) ipratropium 0.5 mg-albuterol 3 mg 3 ml inhalation Q6H PRN 11/15/22 08/31/23 History (2.5 mg base)/3 mL nebulization soln magnesium chloride 64 mg 128 mg PO DAILY 11/15/22 08/31/23 History tablet,extended release magnesium hydroxide 400 mg/5 mL 400 mg PO DAILY PRN PRN 11/15/22 08/31/23 History oral suspension (Milk of Magnesia) melatonin 5 mg tablet 6 mg PO HS PRN 11/15/22 08/31/23 History metformin 1,000 mg tablet 1,000 mg PO BID 11/15/22 08/31/23 History nitroglycerin 0.4 mg sublingual 0.4 mg sublingual Q5-15M PRN 11/15/22 08/31/23 History tablet tamsulosin 0.4 mg capsule 0.4 mg PO DAILY 11/15/22 08/31/23 History triamcinolone acetonide 0.1 % 1 applic topical BID 11/15/22 08/31/23 History topical cream ammonium lactate 12 % lotion 1 applic topical BID #400 grams 11/24/22 08/31/23 Rx diclofenac sodium 3 % topical gel 1 applic topical QID #100 grams 11/24/22 08/31/23 Rx camphor 4.7 %-eucalyptus oil 1.2 1 applic topical TID PRN 03/17/23 08/31/23 History %-menthol 2.6 % topical ointment (Vicks Vaporub) carboxymethylcellulose sodium 1 % 1 drp ophthalmic (eye) TID PRN 03/17/23 08/31/23 History eye drops (Artificial Tears (carboxymethylcellulose)) aspirin 81 mg tablet,delayed 81 mg PO DAILY 08/20/23 08/31/23 History release trazodone 50 mg tablet 50 mg PO DAILY 08/20/23 08/31/23 History cyanocobalamin (vitamin B-12) 1,000 mcg PO DAILY 08/26/23 08/31/23 History 1,000 mcg capsule hydroxyzine HCl 25 mg tablet 25 mg PO TID PRN 08/26/23 08/31/23 History ondansetron HCl 4 mg tablet 4 mg PO Q6H PRN #30 tabs 08/26/23 08/31/23 Rx oxycodone 5 mg tablet 2.5 mg PO Q6H PRN 08/26/23 08/31/23 History polyethylene glycol 3350 17 gram 17 g PO DAILY PRN 08/26/23 08/31/23 History oral powder packet (Miralax) buspirone 7.5 mg tablet 7.5 mg PO BID 08/31/23 08/31/23 History omeprazole 20 mg capsule,delayed 20 mg PO DAILY 08/31/23 08/31/23 History release Exam Narrative Exam Narrative: Chronically ill-appearing morbidly obese gentleman laying in bed in no acute distress, ANO x 4, 2 L nasal cannula in place, heart rate regular, roughly 60 bpm, lung sounds diminished bilaterally, abdomen obese, soft, nontender, nondistended Results Labs 08/31/23 06:44 08/31/23 06:44 Labs: Laboratory Results - last 24 hr 08/31/23 08/31/23 08/31/23 06:44 06:44 09:44 WBC 9.34 RBC 3.12 L Hgb 8.5 L Hct 29.4 L MCV 94 MCH 27.2 MCHC 28.9 L RDW 15.0 H Plt Count 426 H MPV 8.8 Immature Gran % 0.4 Neutrophils % 66.0 Lymphocytes % 17.0 Monocytes % 10.8 Eosinophils % 5.5 Basophils % 0.3 Nucleated RBC % 0.0 Absolute Neutrophils 6.16 Absolute Lymphocytes 1.59 Absolute Monocytes 1.01 H Absolute Eosinophils 0.51 Absolute Basophils 0.03 PT 11.0 INR 1.1 APTT 25.6 VBG pH 7.30 L 7.36 VBG pCO2 76 H* 67 H* VBG pO2 34 35 VBG HCO3 38 H 38 H VBG Total CO2 37 H 36 H VBG O2 Saturation 63 68 VBG Base Excess 12 H 12 H VBG Lactate 0.6 Sodium 142 Potassium 4.6 Chloride 103 Carbon Dioxide 38.6 H Anion Gap 0.4 L BUN 18 Creatinine 1.3 Est GFR (CKD-EPI 2020) 57.65 Glucose 90 Calcium 8.7 Magnesium Cancelled 1.7 L Total Bilirubin 0.2 AST 13 L ALT 14 L Alkaline Phosphatase 91 Troponin I < 50 NT-Pro-B Natriuret Pep 2797 H Total Protein 7.0 Albumin 2.2 L TSH 3.76 H Free T4 0.87 Urine Color Urine Clarity Urine pH Ur Specific [place] Urine Protein Urine Ketones Urine Blood Urine Nitrite Urine Bilirubin Urine Urobilinogen Ur Leukocyte Esterase Urine RBC Urine WBC Ur Epithelial Cells Urine Crystals Urine Bacteria Urine Mucus Ur Culture Indicated? Urine Glucose 08/31/23 10:02 WBC RBC Hgb Hct MCV MCH MCHC RDW Plt Count MPV Immature Gran % Neutrophils % Lymphocytes % Monocytes % Eosinophils % Basophils % Nucleated RBC % Absolute Neutrophils Absolute Lymphocytes Absolute Monocytes Absolute Eosinophils Absolute Basophils PT INR APTT VBG pH VBG pCO2 VBG pO2 VBG HCO3 VBG Total CO2 VBG O2 Saturation VBG Base Excess VBG Lactate Sodium Potassium Chloride Carbon Dioxide Anion Gap BUN Creatinine Est GFR (CKD-EPI 2020) Glucose Calcium Magnesium Total Bilirubin AST ALT Alkaline Phosphatase Troponin I NT-Pro-B Natriuret Pep Total Protein Albumin TSH Free T4 Urine Color Yellow Urine Clarity Cloudy Urine pH 6.0 Ur Specific [place] 1.015 Urine Protein 100 H Urine Ketones Negative Urine Blood Moderate H Urine Nitrite Positive H Urine Bilirubin Negative Urine Urobilinogen 0.2 Ur Leukocyte Esterase Large H Urine RBC Not Applicable Urine WBC >50 H Ur Epithelial Cells Not Applicable Urine Crystals Not Applicable Urine Bacteria Not Applicable Urine Mucus Not Applicable Ur Culture Indicated? Yes Urine Glucose Negative Last Vital Signs Temp 97.5 F L 08/31/23 06:35 Pulse 67 08/31/23 09:41 Resp 25 H 08/31/23 09:41 BP 140/112 H 08/31/23 08:16 Pulse Ox 92 08/31/23 09:43 Time Spent Time spent with Patient: >75 minutes Time was spent: preparing to see the patient(eg.review tests), obtaining and/or reviewing separately otained hiistory, ordering medications,tests, procedures, referring, communicating with other health child care associate teacher, indepentently interpreting results, counseling the patient and care coordination
[2023-08-31] MEDS: Metoprolol 12.5 MG TAB PO ×2 (11:53→20:06)
[2023-08-31 12:48] LABS: Troponin I < 50 ng/L (< or =60)
[2023-08-31 13:48] LABS: MRSA PCR Positive (Negative)
--- NOTE | 2023-08-31 16:08 | PHA.REVIEW2 ---
Pharmacy Admission Review Admission Clinical Review Admission Pharmacy Review: Morbid obesity (Acute) Hypomagnesemia (Acute) Bradycardia (Acute) Frequent PVCs (Acute) CKD stage 3 due to type 2 diabetes mellitus (Acute) Ambulatory dysfunction (Acute) No Known Allergies Allergy (Verified 08/31/23 06:45) Resuscitation Status DNR/DNI Height 5 ft 9 in Weight 146.7 kg Pharmacy Admission Review Renal Dosing Renal Dosing: BUN 18 mg/dL (7-18) 08/31/23 06:44 Creatinine 1.3 mg/dL (0.70-1.30) 08/31/23 06:44 Medications needing adjustments: Reviewed (CrCl 71.2 mL/min) List of meds needing interventions: Current medications are okay Anticoagulation Anticoagulation: Hgb 8.5 g/dL (13.5-17.5) L 08/31/23 06:44 Hct 29.4 % (40.0-50.0) L 08/31/23 06:44 Plt Count 426 10^3/uL (130-400) H 08/31/23 06:44 INR 1.1 (0.9-1.1) 08/31/23 06:44 Creatinine 1.3 mg/dL (0.70-1.30) 08/31/23 06:44 DVT Prophylaxis: Reviewed (None at this time, mention to provider if patient is not discharged tomorrow) Opiate Usage Evaluate Pain Scale/Pains Meds: Reviewed (PRN oxycodone - no doses given so far) Scheduled Bowel Reg ordered if on Opiates?: No (PRN Miralax and docusate) Relevant Labs Relevant Labs: Sodium 142 mmol/L (136-145) 08/31/23 06:44 Potassium 4.6 mmol/L (3.5-5.1) 08/31/23 06:44 Chloride 103 mmol/L (98-107) 08/31/23 06:44 Magnesium 1.7 mg/dL (1.8-2.4) L 08/31/23 06:44 Magnesium Cancelled 08/31/23 06:44 Electrolytes, C-Reactive P, ESR: Reviewed (Mg 1.7, Hgb 8.5, PLT count 426) DM Control DM Control: Glucose 90 mg/dL (74-106) 08/31/23 06:44 DM Control: Reviewed (Has order for metformin 1000mg BID) Cardiac Review Cardiac Review: Troponin I < 50 ng/L (< or =60) 08/31/23 09:44 NT-Pro-B Natriuret Pep 2797 pg/mL (<300) H 08/31/23 06:44 BP, HR, EF%: Reviewed (HR WNL, BP 111/59) QTc Review QTc: Reviewed (443 from 08/31/23) IV to PO Switch IV Medications: Reviewed Home Meds Home Med List reviewed: Reviewed Relevent Home Meds Not ordered & why?: Vicks Vapor Rub (PRN), Vitamin B12, milk of magnesia (PRN) Current Meds Current Medication Order Review: Reviewed
[2023-08-31] MEDS: Diclofenac 1% Gel 100 GM TUBE TP ×2 (16:26→20:08)
[2023-08-31] MEDS: metFORMIN 500 MG TAB 1000 MG PO (16:27)
--- NOTE | 2023-08-31 16:55 | CHAPLAIN ---
I visited Shivam in the ED, after Dr. Mcdonald told me about his. Shivam's daughter and son were with him. He'd been there a few hours already and said he was waiting to hear if he'd be admitted or taken back to [facility]. Shivam is from [place], [place], but hasn't been home in about two years, he said. He was born there, went to high school in [place], [place], and then worked [employer]. 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 He said he like his job, and he was often outside, or a building where the large door was always open. We talked about [employer] and the [facility] [employer] [facility], and some significant events that happened there several years ago that we both knew about, and some people we both knew. Shivam's son and daughter both contributed to the conversation, but Shivam did most of the talking. We did not discuss his diagnosis or prognosis. Shivam was admitted to Med/Surg later this afternoon. I will continue to visit.
[2023-08-31] MEDS: Acetaminophen 325 MG TAB PO (18:40)
[2023-08-31] MEDS: busPIRone 5 MG TAB 7.5 MG PO (20:05)
[2023-08-31] MEDS: Melatonin 3 MG TAB 6 MG PO (20:05)
[2023-08-31] MEDS: Normal Saline Flush 10 ML SYR IVP (20:06)
[2023-08-31] MEDS: Atorvastatin 40 MG TAB 80 MG PO (20:07)
[2023-08-31] MEDS: Budesonide/Formoterol 160/4.5 6 GM 60 PUFF INH IH (20:17)
[2023-08-31] MEDS: oxyCODONE 5 MG TAB 2.5 MG PO (20:19)
[2023-08-31] MEDS: Lachydrin 12% LOTION 225 GM BTL TP (21:01)
[2023-08-31] MEDS: Triamcinolone 0.1% CR 15 GM TUBE TP (21:02)
[2023-09-01 02:49] VITALS: BP 139/83; PULSE 60; RESP 19; TEMP 36.3; O2SAT 94
[2023-09-01] MEDS: Acetaminophen 325 MG TAB PO (04:46)
[2023-09-01 07:26] LABS: HCT 27.3 % (40.0-50.0); HGB 7.9 g/dL (13.5-17.5); MCH 26.9 pg (27.0-33.0); MCHC 28.9 % (32.0-36.0); MCV 93 fL (80-95); MPV 9.1 fL (8.0-11.0); Platelet Count 403 10^3/uL (130-400); RBC 2.94 10^6/uL (4.36-5.78); RDW 14.9 % (11.8-14.1); RDW-SD 50.4 fL; WBC 9.27 10^3/uL (4.4-10.8)
[2023-09-01 07:37] VITALS: BP 123/82; PULSE 63; RESP 20; TEMP 37.6; O2SAT 94
[2023-09-01 07:43] LABS: BUN 23 mg/dL (7-18); CREATININE 1.6 mg/dL (0.70-1.30); Calcium 8.6 mg/dL (8.5-10.1); Chloride 101 mmol/L (98-107); Estimated GFR 44.93 (mL/min/1.73m2); Glucose 111 mg/dL (74-106); Potassium 4.7 mmol/L (3.5-5.1); Sodium 141 mmol/L (136-145)
[2023-09-01] MEDS: metFORMIN 500 MG TAB 1000 MG PO (08:00)
[2023-09-01] MEDS: Aspirin E.C. 81 MG TABEC PO (08:00)
[2023-09-01] MEDS: Magnesium Chloride 64 MG TABCR 128 MG PO (08:00)
[2023-09-01] MEDS: busPIRone 5 MG TAB 7.5 MG PO (08:01)
[2023-09-01] MEDS: Metoprolol 12.5 MG TAB PO (08:01)
[2023-09-01] MEDS: Tamsulosin 0.4 MG CAPCR PO (08:01)
[2023-09-01] MEDS: traZODone 50 MG TAB PO (08:01)
[2023-09-01] MEDS: Finasteride 5 MG TAB PO (08:02)
[2023-09-01] MEDS: Omeprazole 20 MG CAPCR PO (08:02)
[2023-09-01] MEDS: DULoxetine 30 MG CAP 60 MG PO (08:02)
[2023-09-01] MEDS: Ferrous Sulfate 325 MG TAB PO (08:02)
[2023-09-01] MEDS: Docusate Sodium 100 MG CAP PO (08:02)
[2023-09-01] MEDS: Diclofenac 1% Gel 100 GM TUBE TP ×2 (08:03→12:46)
[2023-09-01] MEDS: Triamcinolone 0.1% CR 15 GM TUBE TP (08:03)
[2023-09-01] MEDS: oxyCODONE 5 MG TAB 2.5 MG PO (08:10)
[2023-09-01] MEDS: Normal Saline Flush 10 ML SYR IVP (08:10)
[2023-09-01] MEDS: Lachydrin 12% LOTION 225 GM BTL TP (08:11)
[2023-09-01 08:35] VITALS: O2SAT 92
[2023-09-01] MEDS: Budesonide/Formoterol 160/4.5 6 GM 60 PUFF INH IH (08:36)
[2023-09-01 11:02] VITALS: BP 135/76; PULSE 62; RESP 20; TEMP 36.4; O2SAT 92
--- NOTE | 2023-09-01 11:31 | DSE_ITS ---
Date of service: 09/01/23 Time of Service: 12:29 DS: Diagnosis Discharge Diagnosis (1) Bradycardia: Status: Acute Asessment and Plan: Patient initially presented from [facility] and here With concerns for asymptomatic bradycardia. He did have low heart rates but was also found to have significant frequent PVCs. [facility] [place] in [place] department and recommended initiating Lopressor for PVCs and monitoring patient overnight as well as repeat echocardiogram which showed no changes as compared to previous. Additionally, low-dose p.o. Lopressor twice daily did show improvement of frequency of PVCs without worsening bradycardia. Therefore, was determined that the patient was stable for discharge back to health and rehab with close follow- up with PCP and [facility] [place] and 30 day cardiac nurse specialist at discharge. (2) Frequent PVCs: Status: Acute Asessment and Plan: -as noted above (3) Hypomagnesemia: Status: Acute Asessment and Plan: -replaced (4) CKD stage 3 due to type 2 diabetes mellitus: Status: Acute Asessment and Plan: -baseline Cr (5) Ambulatory dysfunction: Status: Acute (6) Chronic pain: Status: Chronic Asessment and Plan: -continue home regimen (7) CHF (congestive heart failure): Status: Chronic Asessment and Plan: -continue home regimen (8) Morbid obesity: Status: Acute Asessment and Plan: -rec ongoing weight loss discussions with PCP Discharge Plan Disposition Patient Disposition: [facility] Facility(SNF) Condition: Good Discharge Details Reason For Visit: Bradycardia Admit Date/Time: 08/31/23 11:38 Admit Provider: Akhil Arciniega Attending Provider: Akhil Arciniega [facility] Course: Patient initially presented from [facility] and here With concerns for asymptomatic bradycardia. He did have low heart rates but was also found to have significant frequent PVCs. [facility] [place] consulted in the emergency department and re commended initiating Lopressor for PVCs and monitoring patient overnight as well as repeat echocardiogram which showed no changes as compared to previous. Additionally, low-dose p.o. Lopressor twice daily did show improvement of frequency of PVCs without worsening bradycardia. Therefore, was determined that the patient was stable for discharge back to health and rehab with close follow- up with PCP and [facility] [place] and 30 day cardiac nurse specialist at discharge. Home Meds and New Rx's Prescriptions: New metoprolol tartrate 25 mg Tablet 12.5 mg PO BID Qty: 90 0RF Continued cyanocobalamin (vitamin B-12) 1,000 mcg capsule 1,000 mcg PO DAILY hydroxyzine HCl 25 mg tablet 25 mg PO TID PRN oxycodone 5 mg tablet 2.5 mg PO Q6H PRN ondansetron HCl 4 mg tablet 4 mg PO Q6H PRN Qty: 30 2RF Vicks Vaporub 4.7-1.2-2.6 % ointment 1 applic topical TID PRN Artificial Tears (cmc) 1 % drops 1 drp ophthalmic (eye) TID PRN aspirin 81 mg tablet,delayed release (DR/EC) 81 mg PO DAILY trazodone 50 mg tablet 50 mg PO DAILY buspirone 7.5 mg tablet 7.5 mg PO BID omeprazole 20 mg capsule,delayed release(DR/EC) 20 mg PO DAILY acetaminophen 500 mg Tablet 500 mg PO BID atorvastatin 80 mg Tablet 80 mg PO QHS docusate sodium [Colace] 100 mg Capsule 100 mg PO DAILY bisacodyl [Dulcolax (bisacodyl)] 10 mg Suppository 10 mg MN DAILY PRN duloxetine 60 mg Capsule,Delayed Release(Dr/Ec) 60 mg PO DAILY ferrous sulfate 325 mg (65 mg iron) Tablet 325 mg PO DAILY finasteride 5 mg Tablet 5 mg PO DAILY guaifenesin [Latoya-Tussin] 100 mg/5 mL Liquid 200 mg PO Q4H PRN ipratropium-albuterol 0.5 mg-3 mg(2.5 mg base)/3 mL Solution For Nebulization 3 ml INHALATION Q6H PRN magnesium chloride 64 mg Tablet Extended Release 128 mg PO DAILY melatonin 5 mg Tablet 6 mg PO HS PRN metformin 1,000 mg Tablet 1,000 mg PO BID magnesium hydroxide [Milk of Magnesia] 400 mg/5 mL Suspension 400 mg PO DAILY PRN PRN nitroglycerin 0.4 mg Tablet, Sublingual 0.4 mg SUBLINGUAL Q5-15M PRN Rx Instructions: do not exceed 3 doses per episode budesonide-formoterol [Symbicort] 160-4.5 mcg/actuation Hfa Aerosol Inhaler 2 puff INHALATION BID tamsulosin 0.4 mg Capsule 0.4 mg PO DAILY triamcinolone acetonide 0.1 % Cream 1 applic TOPICAL BID diclofenac sodium 3 % Gel 1 applic topical QID Qty: 100 0RF ammonium lactate 12 % Lotion 1 applic topical BID Qty: 400 0RF polyethylene glycol 3350 [Miralax] 17 gram powder in packet 17 g PO DAILY PRN Discharge Instructions Stand Alone Forms: Nursing Discharge Form Referrals: [facility] [Outside] [place]OLOG[place],[facility] [place] - ([place] Cardiology regarding bradycardia and frequent PVCs, slightly improved with low dose lopressor Referral sent. Office will Call with appointment. ) Activity:: Activity as Tolerated Equipment/Supplies:: No Equipment Needed Diet:: As Tolerated Discharge Orders Discharge Orders: Discharge Order (Routine); Ordered 09/01/23 Ordered By: Akhil Lomax Ambulatory Orders: Cardiac Event Recorder (Routine) Timeframe: [id number] Facility: [facility] - Location: Respiratory Therapy Ordered By: Akhil Arciniega DS: Summary Time Spent with Patient providing and/or coordinating discharge services: Greater than 30 minutes Status at Discharge Functional status at discharge: independent ambulation Overall status at discharge: patient is back to baseline Mental Status: mental status grossly normal Speech and Movement: speech and movement normal Mood: congruent mood Affect: normal affect Quality:SDOH Health Related Social Needs: No Data to Display Exam Narrative Exam Narrative: Chronically ill-appearing morbidly obese gentleman laying in bed in no acute distress, ANO x 4, 2 L nasal cannula in place, heart rate regular, roughly 68 bpm, lung sounds diminished bilaterally, abdomen obese, soft, nontender, nondistended Psych Mental Status: mental status grossly normal Speech and Movement: speech and movement normal Mood: congruent mood Affect: normal affect DS: Data Vitals/I&O Vitals and I&O: Vital Signs Temperature 97.5 F L 09/01/23 11:02 Temperature Source Tympanic 09/01/23 11:02 Pulse 62 09/01/23 11:02 Pulse Rhythm Regular 09/01/23 09:15 Pulse 66 08/31/23 12:05 Respiratory Rate 20 09/01/23 11:02 Respiratory Effort Normal 09/01/23 09:15 Respiratory Depth Shallow 09/01/23 09:15 Respiratory Pattern Normal 09/01/23 09:15 Blood Pressure 135/76 09/01/23 11:02 Blood Pressure Mean 74 08/31/23 12:05 Pulse Oximetry 92 09/01/23 11:02 Oxygen Delivery Method Nasal Cannula 09/01/23 11:02 Oxygen Flow Rate 2 09/01/23 11:02 Fraction of Inspired Oxygen (FIO2) 28 08/31/23 09:41 Pain Level 0 09/01/23 11:02 Intake & Output 08/31/23 09/01/23 09/01/23 17:59 05:59 17:59 Intake Total 240 / 240 220 / 220 Output Total 250 / 250 50 / 300 Balance -10 / -10 -50 / -60 220 / 220 Weight 323 lb 6.69 oz Intake: Oral 240 / 240 220 / 220 Output: Urine 250 / 250 50 / 300 Other: Urine Color Yellow Pale Yellow Urine Appearance Clear Clear Urine Odor None None Comment unmeasured Patient incontinent large amount of urine Voiding Methods Incontinent Diaper Incontinent Incontinent Data Completed and Pending Labs on day of discharge: Labs from last 24 hours 09/01/23 08/31/23 08/31/23 06:30 11:45 09:44 WBC 9.27 RBC 2.94 L Hgb 7.9 L Hct 27.3 L MCV 93 MCH 26.9 L MCHC 28.9 L RDW 14.9 H Plt Count 403 H MPV 9.1 Sodium 141 Potassium 4.7 Chloride 101 Carbon Dioxide 37.0 H Anion Gap 3.0 BUN 23 H Creatinine 1.6 H Est GFR (CKD-EPI 2020) 44.93 Glucose 111 H Calcium 8.6 Magnesium 2.0 Troponin I < 50 MRSA (TEM-PCR) Positive A 08/31/23 15:48 Blood Blood Culture - Pending 08/31/23 10:02 Urine - Reflex from Urine Culture - Pending Preliminary micro results at discharge 08/31/23 06:44 Blood Culture - Preliminary Blood NO GROWTH 24 HOURS 08/31/23 15:48 Blood Culture - Pending Blood 08/31/23 10:02 Urine Culture - Pending Urine - Reflex from [facility] All Active Problems (Updated 08/31/23 @ 13:43 by Akhil Arciniega MD) Morbid obesity (Acute) Hypomagnesemia (Acute) Bradycardia (Acute) Frequent PVCs (Acute) CKD stage 3 due to type 2 diabetes mellitus (Acute) Ambulatory dysfunction (Acute) Advanced care planning/counseling discussion (Acute) Constipation (Acute) Chronic pain (Chronic) Palliative care encounter (Acute) Depression due to physical illness (Acute) Right ventricular dilation (Acute) Anemia (Chronic) CHF (congestive heart failure) (Chronic) Venous insufficiency (Acute) Chronic kidney disease (CKD) (Chronic) Chronic pain of right wrist (Acute) 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) Cellulitis of left leg (Acute) Medical History Urinary retention Bacteremia Major depression Other retention of urine Hyperlipemia UTI (urinary tract infection) GERD (gastroesophageal reflux disease) Osteoarthritis Social History Smoking/Tobacco Use Status: Former Tobacco Use Smoking risk assessment performed?: Yes Alcohol Intake: current Alcohol Intake frequency: holidays/special occasions only Substance use type: does not use Housing: retirement Do you feel safe at home: Yes Do you feel safe in your relationship?: Yes Time Spent with Patient Time Spent with Patient: <45 minutes Time was spent: preparing to see the patient(eg.review tests), obtaining and/or reviewing separately otained hiistory, ordering medications,tests, procedures, referring, communicating with other health child care aide, indepentently interpreting results, counseling the patient and care coordination
--- NOTE | 2023-09-01 11:45 | CMDISCH_ITS ---
Date of service: 09/01/23 Time of Service: 11:45 LACE Index Scoring Tool Questions: Length of Stay (in days): 1 Was the patient admitted via the E.D.?: Yes Comorbidities: Diabetes w/o Complication, Congestive Heart Failure and Liver or Renal Disease E.D. Visits: 2 Answers: Total Score: 11 Risk of Readmission: High Risk Care Management Discharge Plan Reason for Hospitalization: bradycardia Discharge Plan: Shivam will return to [facility]. He will follow up with facility providers and plan of care and will transport via EMS coordinated by CM. Patient/Family Education Needs: Review of discharge instructions, activity, limitations, follow up plan, discuss Ask Me Three. Services Needed at Discharge: Half-Way Facility SDOH Health Related Social Needs: No Data to Display
--- NOTE | 2023-09-01 11:51 | INITIAL_ITS ---
Date of service: 09/01/23 Time of Service: 11:51 Care Management Initial Assmt Initial Assessment Reason for Hospitalization: bradycardia Functional Status/Living Situation Patient Presentation: Emiliana was lying in bed when CM met with him. He was admitted last evening with bradycardia which has since resolved. He informed CM that he is feeling well and is ready to return to [facility]. When asked, Shivam stated that he very rarely gets out of bed and when he does, it requires the use of a mechanicall lift. 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, Groceries and Other (lives in a SNF) Medications Medication Management: No Issues/Barriers identified Physical Functioning/Mobility Assistive Device: essentially bed bound Advance Directives Advance Directives: Do you have an Advance Directive: N 08/26/23 14:31 AD On File at [facility]: N 11/27/22 13:26 Date Asked 08/31/23 08/31/23 07:15 AD Date Reviewed COLST On File at [facility] Yes 11/27/22 13:26 COLST Date Scanned 08/31/23 08/31/23 11:25 Code Status Resuscitation Status DNR/DNI Portal Pt does not currently have a portal and education provided: No Portal Education: Patient declined Insurance Coverage/Financial Issues Insurance: Medicare Medicaid ACO Member: No Care Team Visit Care Team Role Provider Type Mica Barnard MD Primary Care Provider NON-[facility] STAFF PHYSICIAN Sumeet Sadler MD Emergency Provider [facility] STAFF PHYSICIAN Akhil Arciniega MD Admit Provider [facility] STAFF PHYSICIAN Attending Provider Discharge Potential Discharge Needs: Other (SNF) Anticipated Barriers to Discharge: None Identified Patient/Family Education Needs: Review discharge instructions, discuss Ask Me Three Transportation: EMS Plan: Shivam will return to [facility] where he resides. He will follow up with facility providers and plan of care and transport via EMS coordinated by CM. 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 (Acute) Ambulatory dysfunction (Acute) Advanced care planning/counseling discussion (Acute) Constipation (Acute) Chronic pain (Chronic) Palliative care encounter (Acute) Depression due to physical illness (Acute) Right ventricular dilation (Acute) Anemia (Chronic) CHF (congestive heart failure) (Chronic) Venous insufficiency (Acute) Chronic kidney disease (CKD) (Chronic) Chronic pain of right wrist (Acute) 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) Cellulitis of left leg (Acute) Medical History Urinary retention Bacteremia Major depression Other retention of urine Hyperlipemia UTI (urinary tract infection) GERD (gastroesophageal reflux disease) Osteoarthritis Social History Smoking/Tobacco Use Status: Former Tobacco Use Smoking risk assessment performed?: Yes Alcohol Intake: current Alcohol Intake frequency: holidays/special occasions only Substance use type: does not use Housing: longterm Do you feel safe at home: Yes Do you feel safe in your relationship?: Yes SDOH(Care Management) Screening Will the Patient Participate in the Screening?: Yes Do you worry about having a steady place to live?: no Problems where you live: no known problems In the past 12 months, have you had to go without electric, gas, oil or water in your home?: no Have you or anyone in your house had to go without enough food to eat?: no Has lack of transportation kept you from medical appointments or from doing things needed for daily living?: no Has anyone in your support network made you feel unsafe for any reason?: no
--- NOTE | 2023-09-01 12:00 | NUR.NOTE ---
Nursing Note: Attempted to call and give report to [facility] and [facility] x2 at 1130. No answer. Will try to call again in 30 min.
--- NOTE | 2023-09-01 12:44 | NUR.NOTE ---
Nursing Note: Attempted to call two more times to give report. No answer. Will try again at 1300.
== END 2023-09-01 13:00 | disposition skilled nursing facility (03) ==
LOC: ER 11:53 → MS 13:03
PROVIDERS: Student in an Organized Health Care Education/Training Program; Admitting Provider Family Medicine; Emergency Provider Student in an Organized Health Care Education/Training Program; PCP Family Medicine; Visit Provider Family Medicine
DX: I49.3 Ventricular premature depolarization (principal); E83.42 Hypomagnesemia; E11.65 Type 2 diabetes mellitus with hyperglycemia; E11.22 Type 2 diabetes mellitus with diabetic chronic kidney disease; N18.30 Chronic kidney disease, stage 3 unspecified; R26.2 Difficulty in walking, not elsewhere classified; I50.9 Heart failure, unspecified; G89.29 Other chronic pain; E66.01 Morbid (severe) obesity due to excess calories; Z68.42 Body mass index [BMI] 45.0-49.9, adult; I25.2 Old myocardial infarction; J96.11 Chronic respiratory failure with hypoxia; Z99.81 Dependence on supplemental oxygen; I49.8 Other specified cardiac arrhythmias; F32.A Depression, unspecified; K59.00 Constipation, unspecified; D64.9 Anemia, unspecified
CPT/HCPCS: 00123; 36415; 80048; 80053; 82805; 85027; 87040; 87077; 87641; 93005; 93306; 94640; 96365; 96366; 99291; 71045; 81003; 81015; 83605; 83735; 83880; 84439; 84443; 84484; 85025; 85610; 85730; 87086; 87186; 93010; 94664; 99223; 99238; G0378; J3475; J3490

== ENCOUNTER 2023-09-20 08:03 | Outpatient (CLI) | payer MEDICARE, MEDICAID, SELFPAY ==
--- NOTE | 2023-09-20 08:41 | W.CARDEVENT ---
Date of service: 09/20/23 Time of Service: 08:41 Cardiac Event Recorder Referring Provider:: Mica Barnard Indications:: Bradycardia, PVCs Cardiac Event Note: This is a cardiac event monitor. Patient was monitored for 1 day Rhythm throughout was sinus with first-degree AV block. Average heart rate was 71 PVCs were seen There was no atrial fibrillation, no high-grade AV block, no pauses greater than 3 seconds
== END 2023-09-20 08:04 | disposition home or self-care (01) ==
LOC: CARDOPNVT 08:03
PROVIDERS: PCP Family Medicine; Visit Provider Internal Medicine Cardiovascular Disease
DX: I44.0 Atrioventricular block, first degree (principal); R00.1 Bradycardia, unspecified
CPT/HCPCS: 93272